=== PATIENT | male | born 1950 | race Caucasian/White ===

== ENCOUNTER → 2017-10-31 02:49 | Outpatient (CLI) | payer OTHER, SELFPAY ==
[2017-11-02 13:09] LABS: Lyme Ab w Rflx to Lyme Confirm Negative
== END ==
PROVIDERS: PCP Emergency Medicine; Visit Provider Emergency Medicine
DX: R53.83 Other fatigue (principal)
CPT/HCPCS: 36415; 86618

== ENCOUNTER 2018-01-23 13:27 | Outpatient (CLI) | payer OTHER, SELFPAY ==
--- NOTE | 2018-01-23 07:10 | DI.RAD_ITS ---
SYMPTOM/DIAGNOSIS: DYSPNEA ON EXERTION, R06.09 PA AND LATERAL CHEST: Comparison is made with 11/27/02. Heart size and pulmonary vasculature are stable and within normal limits. There are linear infiltrates seen in the right base. These may represent scarring or atelectasis. Pneumonia cannot be excluded. The left lung is clear. No effusions or pneumothoraces are identified. The lung apices appear to be hyperlucent raising the question of COPD. Degenerative changes are seen in the spine. IMPRESSION: Right basilar infiltrate which may represent atelectasis, scarring or pneumonia. COPD.
== END 2018-01-23 13:47 ==
PROVIDERS: PCP Emergency Medicine; Visit Provider Emergency Medicine
DX: R06.09 Other forms of dyspnea (principal); R91.8 Other nonspecific abnormal finding of lung field; J44.9 Chronic obstructive pulmonary disease, unspecified
CPT/HCPCS: 71046

== ENCOUNTER 2018-02-23 01:53 | Outpatient (CLI) | payer OTHER, SELFPAY ==
--- NOTE | 2018-02-23 07:31 | DI.RAD_ITS ---
SYMPTOM/DIAGNOSIS: F/U PREVIOUS COPD. CASE MANAGEMENT PATIENT PA AND LATERAL CHEST: 02/23 The heart is not enlarged. There appear to be changes of COPD. There is questionable infiltrate and/or nodular radiodensity of the right lung base, unchanged from 01/23/18. The findings were not present on previous chest film of 2002. No gross pleural effusion seen. CONCLUSION: Question of persistent right basilar density. Chest CT recommended to rule out mass.
== END 2018-02-23 02:13 ==
PROVIDERS: PCP Emergency Medicine; Visit Provider Emergency Medicine
DX: J44.9 Chronic obstructive pulmonary disease, unspecified (principal); J98.4 Other disorders of lung
CPT/HCPCS: 71046

== ENCOUNTER 2018-03-06 06:08 | Outpatient (CLI) | payer OTHER, SELFPAY ==
[2018-03-06 07:58] LABS: CREATININE 1.07 mg/dL (0.70-1.30)
== END 2018-03-06 06:28 ==
PROVIDERS: PCP Emergency Medicine; Visit Provider Emergency Medicine
DX: R93.89 Abnormal findings on diagnostic imaging of other specified body structures (principal); Z13.89 Encounter for screening for other disorder
CPT/HCPCS: 36415; 82565

== ENCOUNTER 2018-03-10 00:52 | Outpatient (CLI) | payer OTHER, SELFPAY ==
--- NOTE | 2018-03-10 15:32 | DI.CT_ITS ---
SYMPTOM/DIAGNOSIS: PERSISTENT ABNL CHEST XRAY, R93.[address]: Comparison is made with chest xray dated 02/23/18. Images were performed from the clavicles through the level of the adrenals after IV contrast. There are severe emphysematous changes, greatest in the upper lobes. There is linear scarring at the lung bases. No infiltrate, effusion or mass is seen. Mild amount of atelectasisis seen in the medial right middle lobe. No adenopathy is seen. The heart size is normal. The aorta is normal in diameter. The visualized portions of the upper abdomen are unremarkable. There are surgical clips near the GE junction. IMPRESSION: Severe emphysematous changes. There is basilar scarring and atelectasis. No suspicious abnormalities are identified.
[2018-03-10] MEDS: Omnipaque 350 MG/ML 100 ML BTL 70 ML IJ (15:34)
== END 2018-03-10 01:12 ==
PROVIDERS: PCP Emergency Medicine; Visit Provider Emergency Medicine
DX: R93.89 Abnormal findings on diagnostic imaging of other specified body structures (principal); J43.9 Emphysema, unspecified
CPT/HCPCS: 71260; J3490

== ENCOUNTER 2018-08-24 13:06 | Emergency (ER) | payer OTHER, SELFPAY ==
[2018-08-24 13:09] VITALS: BP 153/85; PULSE 88; RESP 16; TEMP 36.7; O2SAT 88
--- NOTE | 2018-08-24 13:21 | W.ED.GENAD ---
Discharge Plan Disposition Patient Disposition: HOME Condition: Fair Discharge Details Chief Complaint: RespSymp Clinical Impression: Pneumonia Primary Care Provider: David Kingston ED Provider: Jenni Malhotra Home Meds and New Rx's Prescriptions: New azithromycin 500 mg tablet See Rx Instructions .ROUTE .COMPLEX Qty: 9 RF: 0 prednisone 20 mg tablet 40 mg PO DAILY Qty: 8 RF: 0 Continued Symbicort 80-4.5 mcg/actuation HFA aerosol inhaler 2 puff IH BID Qty: 10.2 RF: 6 aspirin [Ecotrin Low Strength] 81 MG tablet,delayed release (DR/EC) 81 mg PO DAILY RF: 0 ibuprofen [Motrin IB] 200 MG tablet 400 mg PO PRN RF: 0 metoprolol succinate [Toprol XL] 25 MG tablet extended release 24 hr 25 mg PO DAILY Qty: 60 RF: 6 Discharge Instructions Instructions: Pneumonia (ED) Additional Instructions: Encourage hydration. Please take antibiotics and steroids as prescribed. Please follow-up with primary care in 1 week for reevaluation. If you develop increased shortness of breath, difficulty breathing, chest pain or other new/worsening symptoms please seek care urgently once again. Referrals: David Kingston, [Primary Care Provider] - Discharge Data Discharge Date/Time-TO BE ENTERED AT DEPARTURE: 08/24/18 14:33 Medical Decision Making Patient is a 60-year-old male presents today with chief complaint of cough and shortness of breath. He reports symptoms began 1 week ago and progressively worsened. Initially, he has been endorsing scratchy throat nasal congestion but the symptoms have resolved. His was recently diagnosed with pneumonia and he is concerned that he may contract as well. Patient has no diagnosis of COPD. Reports that he has been using his Symbicort as prescribed only minimal improvement in symptoms. He denies any fevers or chills. Denies any chest pain. No GI upset. On exam, he appears pink warm and dry. He is known to be hypoxic at 88% but this appears to be patient's baseline when review of historical data. He does not appear short of breath, breathing comfortably and speaking in complete sentences. Exam is otherwise benign. Plan to obtain chest x-ray and treat for pneumonia. X-ray was reviewed by radiologist with no acute cardiopulmonary process noted. However, given the crackles I am noting on the right lower lobe, will treat for pneumonia. Advise follow-up with primary care in 1 week. Will be treated with azithromycin and prednisone. He was given strict return precautions. Encourage hydration. All his questions and concerns were addressed and he is in agreement with this plan. HPI General Mode of arrival: ambulatory. Date/Time Provider Initiated Documentation: 08/24/18 13:07. Limitations to Documentation: no limitations. Information obtained by: patient and RN notes reviewed. History of Present Illness 68 year old M presents to the emergency department with the chief complaint of cough, described as moderate, Quality is described as aching (with cough), Patient reports no radiation. Patient started experiencing this week(s) (1) and it has been constant. No relieving factors improve symptom(s), No exacerbating factors reported . Patient notes cough and shortness of breath (chronic, associates with COPD, largely unchanged); denies chest pain, diaphoresis, fever/chills, headaches, loss of appetite, nausea/vomiting and rash. Patient did receive the following treatments prior to arrival, none Related Data Home Medications Medication Instructions Recorded Confirmed aspirin [Ecotrin Low Strength] 81 mg PO DAILY tab-cap 08/10/12 08/24/18 ibuprofen [Motrin IB] 400 mg PO PRN tab-cap 08/10/12 08/24/18 metoprolol succinate [Toprol XL] 25 mg PO DAILY #60 tab-cap 09/23/17 08/24/18 budesonide-formoterol HFA 80 2 puff IH BID #10.2 gm 01/20/18 08/24/18 mcg-4.5 mcg/actuation aerosol inhaler azithromycin See Rx Instructions .ROUTE 08/24/18 .COMPLEX #9 tab prednisone 40 mg PO DAILY #8 tab 08/24/18 Previous Rx's Medication Instructions Recorded metoprolol succinate [Toprol XL] 25 mg PO DAILY #60 tab-cap 09/23/17 budesonide-formoterol HFA 80 2 puff IH BID #10.2 gm 01/20/18 mcg-4.5 mcg/actuation aerosol inhaler azithromycin See Rx Instructions .ROUTE 08/24/18 .COMPLEX #9 tab prednisone 40 mg PO DAILY #8 tab 08/24/18 Allergies Allergy/AdvReac Type Severity Reaction Status Date / Time Penicillins Allergy Unknown Verified 08/24/18 13:13 General Stated Complaint: RespSymp HE: 3 Review of Systems Constitutional Reports as per HPI and Denies headache(s) Eyes Reports as per HPI, Denies eye discharge and Denies irritation ENT Reports as per HPI and Denies headache(s) Cardiovascular Reports as per HPI, Denies chest pain and Denies dyspnea Respiratory Reports as per HPI and Denies dyspnea Gastrointestinal Reports as per HPI, Denies abdominal pain, Denies change in bowel habits, Denies nausea and Denies vomiting Integumentary/Breasts Reports as per HPI and Denies rash Neurologic Reports as per HPI and Denies headache(s) [facility] Surgical History Colonoscopy - MAC (~2006) Extraction of cataract Elida Fundoplication (~1997) Rotator Cuff Repair (~07/2010) abdominal wall hernia repair Family History Mother Heart disease COPD (chronic obstructive pulmonary disease) Father Diabetes Personal history of malignant neoplasm Sister Diabetes Heart disease Brother Diabetes Heart disease Grandfather Heart disease Grandfather No problems noted. Grandmother No problems noted. Grandmother No problems noted. Sister Heart disease Hyperlipidemia Brother No problems noted. Son Essential hypertension Son No problems noted. Daughter Neoplasm Social History Smoking/Tobacco Use Status: Former Tobacco Use Alcohol Intake: current Alcohol Intake frequency: a few times a month Drug use: Never Substance use type: does not use Do you feel safe at home: Yes Do you feel safe in your relationship?: Yes Exam Const General: cooperative, healthy appearing, comfortable, no acute distress, well developed and well groomed Nutritional Appearance: average body habitus and well nourished Orientation: alert and awake [facility] Head: normal to inspection, normocephalic and atraumatic Ears: hearing grossly normal bilaterally, external ears normal and TM's normal bilaterally General nose exam: external nose normal and nares normal Face and sinus: normal facial exam, sinuses nontender and face symmetric Mouth: oral mucosae normal, lip normal, tongue normal, oropharynx normal and moist mucous membranes Teeth and gingiva: dentition normal Throat: posterior oropharynx normal, tonsils normal and uvula midline Eyes General: appearance normal, both eyes and all related structures Neck Neck: normal visual inspection, full ROM, no lymphadenopathy and no meningeal signs Resp Effort & Inspection: normal respiratory effort, able to speak in complete sentences and no respiratory distress Auscultation: crackles on the left in the lower lung cade, no rales, no rhonchi and no wheezes Cardio Rate: regular rate Rhythm: regular rhythm Heart Sounds: S1 normal and S2 normal Skin General skin exam: no rashes or lesions noted Neuro General: alert and awake Cognition: normal cognition Speech: speech normal Gait: normal gait Psych Appearance: grossly normal and well kempt Mental Status: mental status grossly normal Speech and Movement: speech and movement normal Course Vital Signs Temperature 36.7 C 08/24/18 13:09 Pulse 88 08/24/18 13:09 Respiratory Rate 16 08/24/18 13:09 Blood Pressure 153/85 H 08/24/18 13:09 Pulse Oximetry 88 L 08/24/18 13:09 Temperature 36.7 C 08/24/18 13:09 Temperature Source Temporal Artery Scan 08/24/18 13:09 Pulse 88 08/24/18 13:09 Respiratory Rate 16 08/24/18 13:09 Respiratory Effort Non-Labored 08/24/18 13:14 Respiratory Depth Normal 08/24/18 13:14 Blood Pressure 153/85 H 08/24/18 13:09 Blood Pressure Position Sitting 08/24/18 13:09 Pulse Oximetry 88 L 08/24/18 13:09 Oxygen Delivery Method Room Air 08/24/18 13:09 Oxygen Flow Rate 0 08/24/18 13:09 Pain Level 1 08/24/18 13:09
--- NOTE | 2018-08-24 13:31 | DI.RAD_ITS ---
SYMPTOMS/DIAGNOSIS: LEFT LOWER LOBE CRACKLES, ? PNEUMONIA PA AND LATERAL CHEST: There is evidence of COPD. No localized infiltrate is seen. There is no pleural effusion. The cardiovascular structures are intact. SUMMARY: COPD. No evidence of acute cardiopulmonary disease.
--- NOTE | 2018-08-24 13:36 | ED.GENADUL_ITS ---
Discharge Plan Disposition Patient Disposition: HOME Condition: Fair Discharge Details Chief Complaint: RespSymp Clinical Impression: Pneumonia Primary Care Provider: David Kingston ED Provider: Jenni Malhotra Home Meds and New Rx's Prescriptions: New azithromycin 500 mg tablet See Rx Instructions .ROUTE .COMPLEX Qty: 9 RF: 0 prednisone 20 mg tablet 40 mg PO DAILY Qty: 8 RF: 0 Continued Symbicort 80-4.5 mcg/actuation HFA aerosol inhaler 2 puff IH BID Qty: 10.2 RF: 6 aspirin [Ecotrin Low Strength] 81 MG tablet,delayed release (DR/EC) 81 mg PO DAILY RF: 0 ibuprofen [Motrin IB] 200 MG tablet 400 mg PO PRN RF: 0 metoprolol succinate [Toprol XL] 25 MG tablet extended release 24 hr 25 mg PO DAILY Qty: 60 RF: 6 Discharge Instructions Instructions: Pneumonia (ED) Additional Instructions: Encourage hydration. Please take antibiotics and steroids as prescribed. Please follow-up with primary care in 1 week for reevaluation. If you develop increased shortness of breath, difficulty breathing, chest pain or other new/worsening symptoms please seek care urgently once again. Referrals: David Kingston, [Primary Care Provider] - Discharge Data Discharge Date/Time-TO BE ENTERED AT DEPARTURE: 08/24/18 14:33 Medical Decision Making Patient is a 60-year-old male presents today with chief complaint of cough and shortness of breath. He reports symptoms began 1 week ago and progressively worsened. Initially, he has been endorsing scratchy throat nasal congestion but the symptoms have resolved. His was recently diagnosed with pneumonia and he is concerned that he may contract as well. Patient has no diagnosis of COPD. Reports that he has been using his Symbicort as prescribed only minimal improvement in symptoms. He denies any fevers or chills. Denies any chest pain. No GI upset. On exam, he appears pink warm and dry. He is known to be hypoxic at 88% but this appears to be patient's baseline when review of historical data. He does not appear short of breath, breathing comfortably and speaking in complete sentences. Exam is otherwise benign. Plan to obtain chest x-ray and treat for pneumonia. X-ray was reviewed by radiologist with no acute cardiopulmonary process noted. However, given the crackles I am noting on the right lower lobe, will treat for pneumonia. Advise follow-up with primary care in 1 week. Will be treated with azithromycin and prednisone. He was given strict return precautions. Encourage hydration. All his questions and concerns were addressed and he is in agreement with this plan. HPI General Mode of arrival: ambulatory . Date/Time Provider Initiated Documentation: 08/24/18 13:07 . Limitations to Documentation: no limitations . Information obtained by: patient and RN notes reviewed . History of Present Illness 68 year old M presents to the emergency department with the chief comp laint of cough, described as moderate, Quality is described as aching (with cough), Patient reports no radiation. Patient started experiencing this week(s) (1) and it has been constant. No relieving factors improve symptom(s), No exacerbating factors reported . Patient notes cough and shortness of breath (chronic, associates with COPD, largely unchanged); denies chest pain, diaphoresis, fever/chills, headaches, loss of appetite, nausea/vomiting and rash. Patient did receive the following treatments prior to arrival, none Related Data Home Medications Medication Instructions Recorded Confirmed aspirin [Ecotrin Low Strength] 81 mg PO DAILY tab-cap 08/10/12 08/24/18 ibuprofen [Motrin IB] 400 mg PO PRN tab-cap 08/10/12 08/24/18 metoprolol succinate [Toprol XL] 25 mg PO DAILY #60 tab-cap 09/23/17 08/24/18 budesonide-formoterol HFA 80 2 puff IH BID #10.2 gm 01/20/18 08/24/18 mcg-4.5 mcg/actuation aerosol inhaler azithromycin See Rx Instructions .ROUTE 08/24/18 .COMPLEX #9 tab prednisone 40 mg PO DAILY #8 tab 08/24/18 Previous Rx's Medication Instructions Recorded metoprolol succinate [Toprol XL] 25 mg PO DAILY #60 tab-cap 09/23/17 budesonide-formoterol HFA 80 2 puff IH BID #10.2 gm 01/20/18 mcg-4.5 mcg/actuation aerosol inhaler azithromycin See Rx Instructions .ROUTE 08/24/18 .COMPLEX #9 tab prednisone 40 mg PO DAILY #8 tab 08/24/18 Allergies Allergy/AdvReac Type Severity Reaction Status Date / Time Penicillins Allergy Unknown Verified 08/24/18 13:13 General Stated Complaint: RespSymp HE: 3 Review of Systems Constitutional Reports as per HPI and Denies headache(s) Eyes Reports as per HPI, Denies eye discharge and Denies irritation ENT Reports as per HPI and Denies headache(s) Cardiovascular Reports as per HPI, Denies chest pain and Denies dyspnea Respiratory Reports as per HPI and Denies dyspnea Gastrointestinal Reports as per HPI, Denies abdominal pain, Denies change in bowel habits, Denies nausea and Denies vomiting Integumentary/Breasts Reports as per HPI and Denies rash Neurologic Reports as per HPI and Denies headache(s) [facility] Surgical History Colonoscopy - MAC (~2006) Extraction of cataract Elida Fundoplication (~1997) Rotator Cuff Repair (~07/2010) abdominal wall hernia repair Family History Mother Heart disease COPD (chronic obstructive pulmonary disease) Father Diabetes Personal history of malignant neoplasm Sister Diabetes Heart disease Brother Diabetes Heart disease Grandfather Heart disease Grandfather No problems noted. Grandmother No problems noted. Grandmother No problems noted. Sister Heart disease Hyperlipidemia Brother No problems noted. Son Essential hypertension Son No problems noted. Daughter Neoplasm Social History Smoking/Tobacco Use Status: Former Tobacco Use Alcohol Intake: current Alcohol Intake frequency: a few times a month Drug use: Never Substance use type: does not use Do you feel safe at home: Yes Do you feel safe in your relationship?: Yes Exam Const General: cooperative, healthy appearing, comfortable, no acute distress, well developed and well groomed Nutritional Appearance: average body habitus and well nourished Orientation: alert and awake [facility] Head: normal to inspection, normocephalic and atraumatic Ears: hearing grossly normal bilaterally, external ears normal and TM's normal bilaterally General nose exam: external nose normal and nares normal Face and sinus: normal facial exam, sinuses nontender and face symmetric Mouth: oral mucosae normal, lip normal, tongue normal, oropharynx normal and moist mucous membranes Teeth and gingiva: dentition normal Throat: posterior oropharynx normal, tonsils normal and uvula midline Eyes General: appearance normal, both eyes and all related structures Neck Neck: normal visual inspection, full ROM, no lymphadenopathy and no meningeal signs Resp Effort & Inspection: normal respiratory effort, able to speak in complete sentences and no respiratory distress Auscultation: crackles on the left in the lower lung cade, no rales, no rhonchi and no wheezes Cardio Rate: regular rate Rhythm: regular rhythm Heart Sounds: S1 normal and S2 normal Skin General skin exam: no rashes or lesions noted Neuro General: alert and awake Cognition: normal cognition Speech: speech normal Gait: normal gait Psych Appearance: grossly normal and well kempt Mental Status: mental status grossly normal Speech and Movement: speech and movement normal Course Vital Signs Temperature 36.7 C 08/24/18 13:09 Pulse 88 08/24/18 13:09 Respiratory Rate 16 08/24/18 13:09 Blood Pressure 153/85 H 08/24/18 13:09 Pulse Oximetry 88 L 08/24/18 13:09 Temperature 36.7 C 08/24/18 13:09 Temperature Source Temporal Artery Scan 08/24/18 13:09 Pulse 88 08/24/18 13:09 Respiratory Rate 16 08/24/18 13:09 Respiratory Effort Non-Labored 08/24/18 13:14 Respiratory Depth Normal 08/24/18 13:14 Blood Pressure 153/85 H 08/24/18 13:09 Blood Pressure Position Sitting 08/24/18 13:09 Pulse Oximetry 88 L 08/24/18 13:09 Oxygen Delivery Method Room Air 08/24/18 13:09 Oxygen Flow Rate 0 08/24/18 13:09 Pain Level 1 08/24/18 13:09
== END 2018-08-24 14:33 | disposition home or self-care (01) ==
PROVIDERS: Emergency Provider Physician Assistant; PCP Emergency Medicine
DX: J18.9 Pneumonia, unspecified organism (principal)
CPT/HCPCS: 99283; 71046

== ENCOUNTER 2018-11-12 09:54 | Emergency (ER) | payer OTHER, SELFPAY ==
[2018-11-12 09:59] VITALS: BP 180/91; PULSE 75; RESP 14; TEMP 36.9; O2SAT 91
--- NOTE | 2018-11-12 10:21 | ED.GENADUL_ITS ---
Discharge Plan Disposition Patient Disposition: HOME Condition: Stable Discharge Details Chief Complaint: Nk/Back Pain Clinical Impression: Sciatica, Back pain, Leg pain Primary Care Provider: David Kingston ED Provider: Corin Beverly Home Meds and New Rx's Prescriptions: New prednisone 20 mg tablet See Rx Instructions .ROUTE .COMPLEX Qty: 12 RF: 0 methocarbamol [Robaxin-750] 750 mg tablet 750 mg PO QID PRN (Reason: muscle spasm) Qty: 14 RF: 0 Continued Symbicort 80-4.5 mcg/actuation HFA aerosol inhaler 2 puff IH BID Qty: 10.2 RF: 6 aspirin [Ecotrin Low Strength] 81 MG tablet,delayed release (DR/EC) 81 mg PO DAILY RF: 0 ibuprofen [Motrin IB] 200 MG tablet 400 mg PO PRN RF: 0 metoprolol succinate [Toprol XL] 25 MG tablet extended release 24 hr 25 mg PO DAILY Qty: 60 RF: 6 Discharge Instructions Instructions: Sciatica (ED), Back Pain (ED) Additional Instructions: Alternate Tylenol and Motrin as needed and directed for pain. Take the steroids until finished. Take the muscle relaxer as needed and directed. Alternate ice and heat to the affected area several times daily for 20 minutes at a time. Call your primary care doctor tomorrow morning to schedule a follow-up appointment for reevaluation. Return immediately to the emergency department if you develop any worsening or new concerning symptoms. Stand Alone Forms: Work Release Discharge Data Discharge Date/Time-TO BE ENTERED AT DEPARTURE: 11/12/18 11:44 Discharge Physician: Corin Beverly Medical Decision Making 68-year-old male with history of COPD, BPH who presents with right lower back pain with radiation to buttock and right leg for the past few days. Denies any cauda equina symptoms, fever, abdominal pain, urinary symptoms or known injury. He has tenderness palpation of his right lateral lumbar region, right buttock. No focal deficits. Neurovascularly intact. Presentation appears likely consistent with sciatica. Patient was given a dose of Toradol IM and Valium p.o. here and admitted some improvement. I do not see any indication for imaging at this time and the patient is agreeable. He was sent home with a prescription for Robaxin and steroids. He was advised that his symptoms may take several days to resolve and to incorporate Motrin, Tylenol, ice and heat. He was advised to follow-up with his primary care doctor for reevaluation and for referral for physical therapy or imaging if his symptoms do not improve or worsen. He is advised to return here with any concerns. Medical Records Medical records reviewed: Yes I reviewed the patient's medical records. HPI General Mode of arrival: ambulatory . Date/Time Provider Initiated Documentation: 11/12/18 10:08 . Limitations to Documentation: no limitations . Information obtained by: patient . HPI Narrative: Patient is a 68-year-old male who presents the ED with complaint of bilateral lower back pain for the past 5 days now with radiation to his right leg for the past 2 days. He denies any known injury or trauma. He denies fever, nausea, vomiting, chest pain, shortness of breath, abdominal pain, leg weakness, numbness, saddle anesthesia, bowel or bladder incontinence. He denies any relief with Motrin. Related Data Home Medications Medication Instructions Recorded Confirmed aspirin [Ecotrin Low Strength] 81 mg PO DAILY tab-cap 08/10/12 11/12/18 ibuprofen [Motrin IB] 400 mg PO PRN tab-cap 08/10/12 11/12/18 metoprolol succinate [Toprol XL] 25 mg PO DAILY #60 tab-cap 09/23/17 11/12/18 budesonide-formoterol HFA 80 2 puff IH BID #10.2 gm 01/20/18 11/12/18 mcg-4.5 mcg/actuation aerosol inhaler methocarbamol [Robaxin-750] 750 mg PO QID PRN #14 tab 11/12/18 prednisone See Rx Instructions .ROUTE 11/12/18 .COMPLEX #12 tab Previous Rx's Medication Instructions Recorded metoprolol succinate [Toprol XL] 25 mg PO DAILY #60 tab-cap 09/23/17 budesonide-formoterol HFA 80 2 puff IH BID #10.2 gm 01/20/18 mcg-4.5 mcg/actuation aerosol inhaler methocarbamol [Robaxin-750] 750 mg PO QID PRN #14 tab 11/12/18 prednisone See Rx Instructions .ROUTE 11/12/18 .COMPLEX #12 tab Allergies Allergy/AdvReac Type Severity Reaction Status Date / Time Penicillins Allergy Unknown Verified 08/18/19 10:10 General Stated Complaint: Nk/Back Pain HE: 4 Review of Systems Review of Systems All systems reviewed & are unremarkable except as noted in HPI and below Constitutional Reports as per HPI, Denies chills and Denies fever(s) Eyes Denies blurry vision ENT Denies dizziness, Denies sore throat and Denies throat swelling Cardiovascular Denies chest pain and Denies dyspnea Respiratory Denies cough and Denies dyspnea Gastrointestinal Denies abdominal pain, Denies diarrhea and Denies vomiting Genitourinary Denies hematuria and Denies dysuria Musculoskeletal Reports back pain, Denies numbness and Reports other (Leg pain) Integumentary/Breasts Denies lesions and Denies rash Neurologic Denies dizziness, Denies focal weakness and Denies numbness Allergic/Immunologic Denies throat swelling [facility] Medical History Jensen's esophagus (Inactive) BPH without urinary obstruction (Inactive) COPD (chronic obstructive pulmonary disease) case management patient (Inactive) Surgical History abdominal wall hernia repair Colonoscopy - MAC (~2006) Extraction of cataract Elida Fundoplication (~1997) Rotator Cuff Repair (~07/2010) Family History Mother Heart disease COPD (chronic obstructive pulmonary disease) Father Diabetes Personal history of malignant neoplasm Sister Diabetes Heart disease Brother Diabetes Heart disease Grandfather Heart disease Grandfather No problems noted. Grandmother No problems noted. Grandmother No problems noted. Sister Heart disease Hyperlipidemia Brother No problems noted. Son Essential hypertension Son No problems noted. Daughter Neoplasm Social History Smoking/Tobacco Use Status: Former Tobacco Use Alcohol Intake: current Alcohol Intake frequency: a few times a month Drug use: Never Substance use type: does not use Do you feel safe at home: Yes Do you feel safe in your relationship?: Yes Exam Const General: cooperative, healthy appearing and no acute distress HENMT Head: normal to inspection Face and sinus: normal facial exam Eyes General: appearance normal, both eyes and all related structures Pupils: PERRL EOM: EOM intact bilaterally Neck Neck: normal visual inspection and No submandibular swelling Lymphatic: no lymphadenopathy noted Chest Chest: normal inspection of the chest and no tenderness Resp Effort & Inspection: normal respiratory effort and able to speak in complete sentences Auscultation: clear to auscultation bilaterally Cardio Rate: regular rate Rhythm: regular rhythm GI Inspection: normal to inspection Palpation: soft, not firm, not rigid and nontender Auscultation: normal bowel sounds Back/Spine/Pelvis Thoracic/Lumbar Spine: thoracic and lumbar spine normal to inspection, straight leg raise negative bilaterally, paraspinal tenderness (Right lateral lumbar) and thoraco-lumbar spasm Pelvis: no pain with anterior-posterior compression and buttock tenderness on the right Skin General skin exam: no rashes or lesions noted Neuro General: alert, awake and oriented x3 Cognition: normal cognition Speech: speech normal Motor: muscle tone normal throughout and strength 5/5 throughout Sensory Exam: no sensory deficits noted DTR's: Rt Patellar: 2+, Lt Patellar: 2+, Rt Ankle: 2+ and Lt Ankle: 2+ Plantar Reflexes: Equivocal: bilateral (Negative Babinski bilaterally) Extrem General: normal to inspection, full ROM, normal capillary refill, no calf tenderness bilaterally and no edema Other: Bilateral DP/PT pulses intact. Psych Appearance: grossly normal Mental Status: mental status grossly normal Speech and Movement: speech and movement normal Affect: normal affect Course Vital Signs Temperature 98.4 F 11/12/18 09:59 Pulse 75 11/12/18 09:59 Respiratory Rate 14 11/12/18 09:59 Blood Pressure 180/91 H 11/12/18 09:59 Pulse Oximetry 91 L 11/12/18 09:59 Temperature 98.4 F 11/12/18 09:59 Temperature Source Temporal Artery Scan 11/12/18 09:59 Pulse 75 11/12/18 09:59 Respiratory Rate 14 11/12/18 09:59 Respiratory Effort Non-Labored 11/12/18 10:05 Blood Pressure 180/91 H 11/12/18 09:59 Blood Pressure Position Sitting 11/12/18 09:59 Pulse Oximetry 91 L 11/12/18 09:59 Oxygen Delivery Method Room Air 11/12/18 09:59 Oxygen Flow Rate 0 11/12/18 09:59 Pain Level 6 11/12/18 09:59
[2018-11-12] MEDS: Ketorolac 60 MG/2 ML VIAL IM (10:46)
[2018-11-12] MEDS: diazePAM 5 MG TAB PO (10:47)
== END 2018-11-12 11:44 | disposition home or self-care (01) ==
PROVIDERS: Emergency Provider Physician Assistant; PCP Emergency Medicine
DX: M54.41 Lumbago with sciatica, right side (principal); J44.9 Chronic obstructive pulmonary disease, unspecified; Z87.891 Personal history of nicotine dependence
CPT/HCPCS: 96372; 99284; J1885

== ENCOUNTER 2019-03-29 18:43 | Inpatient (IN) | payer OTHER, SELFPAY ==
[2019-03-29] VITALS (25 sets, daily range): BP systolic 116–190; BP diastolic 55–84; PULSE 77–113; RESP 18–27; TEMP 37.5–37.6; O2SAT 79–95
--- NOTE | 2019-03-29 19:01 | ED.GENADUL_ITS ---
Discharge Plan Disposition Patient Disposition: [facility] INPATIENT Condition: Poor Discharge Details Chief Complaint: Chest Pain Clinical Impression: Bilateral pulmonary embolism, COPD (chronic obstructive pulmonary disease) Primary Care Provider: David Kingston ED Provider: Turner Chester Home Meds and New Rx's Prescriptions: No Action aspirin [Ecotrin Low Strength] 81 MG tablet,delayed release (DR/EC) 81 mg PO DAILY RF: 0 ibuprofen [Motrin IB] 200 MG tablet 400 mg PO PRN RF: 0 Symbicort 80-4.5 mcg/actuation HFA aerosol inhaler 2 puff IH BID Qty: 10.2 RF: 6 metoprolol succinate [Toprol XL] 25 mg tablet extended release 24 hr 25 mg PO DAILY Qty: 60 RF: 6 Medical Decision Making <Bernard Sommer MD - Last Filed: 03/29/19 19:54> 68-year-old male, history of long-time cigarette use, quit in the . [place] to me has had intermittent episodes of chest discomfort for weeks to months. Presents today after developing right-sided pleuritic chest discomfort and mild shortness of breath early in the morning that persisted throughout the day. He arrives to the ED with a room air oxygenation of 79%. He is afebrile but mildly tachycardic and hypertensive. On exam his right base is diminished to auscultation. Differential diagnosis includes chest mass, pulmonary embolism, pneumonia. Patient referred for ABG, EKG, laboratory testing, screening chest x-ray. The patient's ABG reveals a pH 7.4, PO2 58, PCO2 43. CBC with white count 11, hematocrit 52, platelets 219. D-dimer elevated at 1651, chemistries pending. Patient's chest x-ray shows right base abnormality, formal report pending. Given his presentation, hypoxia, elevated d-dimer I have ordered a CT scan of the chest. As it is change of shift, patient be signed out to Dr. Chester pending remainder of his diagnostics and diagnostic imaging. ECG Data Attestation: I personally reviewed and interpreted this ECG (s) as follows: Interpretation: Sinus tachycardia, rate of 111, the QRS is narrow, nonspecific ST segment flattening in leads III and aVF. No acute ST segment changes appreciated. <Turner Chester MD - Last Filed: 03/29/19 22:23> Patient signed out to me pending results of CT scan and laboratory studies. Patient had presented with pleuritic right-sided chest pain and hypoxemia. Currently has normal heart rate and blood pressure. We did need to turn his nasal cannula up to 6 L to keep him at 90%. He is more comfortable after receiving pain medication. Patient's ABG done on 4 L nasal cannula shows significant hypoxia with a PO2 of 58 and an O2 saturation of 89%. His d-dimer is positive. CBC, chemistries, coags, LFTs are fine. CTA of the chest shows bilateral pulmonary emboli with segmental and subsegmental clot on the right and subsegmental clots on the left. Per radiology, who I did speak with, there is not a significant clot burden and there is no CT evidence of significant right heart strain. Likely that the patient's underlying COPD is contributing a fair amount to his hypoxia. Patient and family made aware of diagnosis. Patient discussed with hospitalist, Dr. Lewis. Will start heparin per PE protocol and admit to telemetry for further monitoring and management. Lab Data Lab results reviewed: Yes I reviewed the patient's lab results. HPI <Bernard Sommer MD - Last Filed: 03/29/19 19:54> General Mode of arrival: ambulatory . Date/Time Provider Initiated Documentation: 03/29/19 18:43 . Limitations to Documentation: no limitations . Information obtained by: patient and family . History of Present Illness 68 year old M presents to the emergency department with the chief complaint of Right-sided chest pain, pleuritic, Quality is described as dull, and is localized to the chest and right. Patient started experiencing this hour(s) and it has been constant. Rest improves symptom(s), Other factors that worsen symptoms (Worse with deep breath) . Patient notes chest pain and other (Denies recent fever, cough. No lower extremity pain or swelling. No prolonged travel.). Patient did receive the following treatments prior to arrival, none Related Data Home Medications Medication Instructions Recorded Confirmed aspirin [Ecotrin Low Strength] 81 mg PO DAILY tab-cap 08/10/12 03/29/19 ibuprofen [Motrin IB] 400 mg PO PRN tab-cap 08/10/12 03/29/19 budesonide-formoterol HFA 80 2 puff IH BID #10.2 gm 11/21/18 03/29/19 mcg-4.5 mcg/actuation aerosol inhaler metoprolol succinate 25 mg 25 mg PO DAILY #60 tab-cap 11/21/18 03/29/19 tablet,extended release 24 hr Previous Rx's Medication Instructions Recorded budesonide-formoterol HFA 80 2 puff IH BID #10.2 gm 11/21/18 mcg-4.5 mcg/actuation aerosol inhaler metoprolol succinate 25 mg 25 mg PO DAILY #60 tab-cap 11/21/18 tablet,extended release 24 hr Allergies Allergy/AdvReac Type Severity Reaction Status Date / Time Penicillins Allergy Unknown Verified 03/29/19 18:52 General Stated Complaint: Chest Pain HE: 2 Review of Systems <Bernard Sommer MD - Last Filed: 03/29/19 19:54> Narrative: Denies night sweats, no change to weight. See HPI. 8 systems reviewed and otherwise negative. PFSH <Bernard Sommer MD - Last Filed: 03/29/19 19:54> Medical History Jensen's esophagus (Inactive) BPH without urinary obstruction (Inactive) COPD (chronic obstructive pulmonary disease) case management patient (Inactive) Surgical History abdominal wall hernia repair 03/2004 Colonoscopy - MAC (~2006) 2007 10/2010 Extraction of cataract Elida Fundoplication (~1997) Rotator Cuff Repair (~07/2010) right Social History Smoking/Tobacco Use Status: Former Tobacco Use Quit Date: 03/31/96 Alcohol Intake: current Alcohol Intake frequency: a few times a month Drug use: Never Substance use type: does not use Do you feel safe at home: Yes Do you feel safe in your relationship?: Yes Exam <Bernard Sommer MD - Last Filed: 03/29/19 19:54> Narrative Exam Narrative: GEN: awake, alert, oriented 3. Pleasant, well groomed, interactive. HEAD: Normocephalic, atraumatic ENT: Mucous membranes moist, oropharynx unremarkable, External ear exam unremarkable EYES: PERRL, EOMI NECK: Full ROM, no AMEE, no menigismus CHEST/RESP: Nontender, diminished right base, otherwise clear to auscultation bilaterally CARDIOVASCULAR: Regular and tachycardic, no murmur, rub zoey. 2+ Rad pulse bilateral ABDOMEN: Soft, nontender, no mass. +Bowel sounds EXT: Full ROM, no edema, no rash Neuro: Grossly normal neurologic exam, conversant, interactive. Psych: Speech fluent, thoughts congruent, affect normal Course <Bernard Sommer MD - Last Filed: 03/29/19 19:54> Vital Signs Vital signs: Vital Signs Temperature 37.6 C H 03/29/19 18:47 Pulse 113 H 03/29/19 18:47 Respiratory Rate 21 03/29/19 18:47 Blood Pressure 190/82 H 03/29/19 18:47 Pulse Oximetry 79 L 03/29/19 18:47 Temperature 37.6 C H 03/29/19 18:47 Temperature Source Temporal Artery Scan 03/29/19 18:47 Pulse 113 H 03/29/19 18:47 Respiratory Rate 21 03/29/19 18:47 Respiratory Effort 03/29/19 18:51 Blood Pressure 190/82 H 03/29/19 18:47 Pulse Oximetry 79 L 03/29/19 18:47 Oxygen Delivery Method Nasal Cannula 03/29/19 18:50 Oxygen Flow Rate 2 03/29/19 18:50 Pain Level 8 03/29/19 18:47 Sign Out <Bernard Sommer MD - Last Filed: 03/29/19 19:54> Sign Out Data: Sign Out Comment: followup CT, labs Last updated by Bernard Sommer MD at 03/29/19 20:01
[2019-03-29] MEDS: Ondansetron 4 MG/2 ML VIAL IVP (19:18)
[2019-03-29] MEDS: Normal Saline Flush 10 ML SYR IVP (19:18)
[2019-03-29 19:23] LABS: Abs Immature Grans 0.05 k/cumm (0.0-0.09); Absolute Basophil Count 0.02 k/cumm (0.0-0.2); Absolute Lymphocyte Count 1.35 k/cumm (1.2-3.4); Absolute Monocyte Count 1.31 k/cumm (0.11-0.7); Absolute Neutrophil Count 8.78 k/cumm (1.2-6.7); Basophils % 0.2; Eosinophils % 0.9; HCT 52.8 % (40.0-50.0); HGB 17.5 g/dL (13.5-17.5); Immature Grans % 0.4 %; Lymphocytes % 11.6; Mean Corp. HGB Concentration 33.1 g/dL (32.0-36.0); Mean Corpuscular Hemoglobin 30.7 pg (27.0-33.0); Mean Corpuscular Volume 92.6 fL (80-95); Monocytes % 11.3; Neutrophils % 75.6; Platelet Count 219 x1000/uL (130-400); RBC Distribution Width 14.6 % (11.8-14.1); White Blood Cell Count 11.62 k/cumm (4.4-10.8)
[2019-03-29 19:29] LABS: INR 1.1 (0.9-1.1); PTT Activated 26.4 sec (21.0-31.4); Prothrombin Time 10.6 sec (9.3-11.0)
[2019-03-29 19:33] LABS: BE 2.5 mmol/L (-3-3); HCO3 27 mmol/L (22-28); pCO2 43 mmHg (34-47); pH 7.41 (7.35-7.45); pO2 58 mmHg (83-108); sO2 89 % (94-98); tCO2 23 mmol/L (22-29)
[2019-03-29 19:46] LABS: ALT 28 U/L (16-63); AST 21 U/L (15-37); Albumin 3.4 g/dL (3.4-5.0); Alkaline Phosphatase 74 U/L (46-116); Anion Gap 6.9 mmol/L (3-11); BUN 22 mg/dL (7-18); Bilirubin, Total 0.6 mg/dL (0.2-1.0); CO2 29.1 mmol/L (21.0-32.0); CREATININE 1.07 mg/dL (0.70-1.30); Calcium 8.7 mg/dL (8.5-10.1); Chloride 104 mmol/L (98-107); Glucose 167 mg/dL (74-106); Magnesium 1.9 mg/dL (1.8-2.4); NT-proBNP 506 pg/mL (<300); Potassium 4.2 mmol/L (3.5-5.1); Sodium 140 mmol/L (136-145); Total Protein 7.6 g/dL (6.4-8.2)
--- NOTE | 2019-03-29 19:48 | DI.RAD_ITS ---
EXAM: XR CHEST 2V PA LATERAL CLINICAL HISTORY: R chest pain TECHNIQUE: COMPARISON: XR CHEST 2V PA LATERAL from 08/24/2018 FINDINGS: The heart is not enlarged. There are areas of bibasilar atelectasis and small right pleural effusion as noted on CT. Severe emphysematous changes noted. Please see accompanying CT report. CT angiography showed multiple bilateral lower lobe pulmonary emb anahi. IMPRESSION:
[2019-03-29 19:51] LABS: D-Dimer 1651 ng/mlFEU (<500)
[2019-03-29] MEDS: MORPHine 10 MG/ML VIAL (20:00)
[2019-03-29 20:01] LABS: Troponin I < 0.05 ng/Ml (<0.06)
--- NOTE | 2019-03-29 20:02 | DI.VRAD_ITS ---
PROCEDURE INFORMATION: Exam: XR Chest, 2 Views Exam date and time: 03/29/2019 7:02 PM Age: 68 years old Clinical indication: Right-sided chest pain TECHNIQUE: Imaging protocol: XR of the chest Views: 2 views. COMPARISON: CR XR CHEST 2V PA LATERAL 08/24/2018 1:40 PM FINDINGS: Lungs: Right lower lobe subsegmental atelectasis and/or evolving infiltrate. No dense consolidation. Pleural space: Unremarkable. No pleural effusion. No pneumothorax. Heart/Mediastinum: Unremarkable. No cardiomegaly. Diaphragm: Eventrations of hemidiaphragms. Bones/joints: Degenerative changes. IMPRESSION: Right lower lobe subsegmental atelectasis and/or evolving infiltrate. Dictated and Authenticated by: David Renae MD. Ordering:DEQUAN Wagner MD
[2019-03-29] MEDS: Omnipaque 350 MG/ML 100 ML BTL IJ (20:18)
--- NOTE | 2019-03-29 20:18 | DI.CT_ITS ---
EXAM: CT CHEST PE ABD PELVIS W CLINICAL HISTORY: Hypoxia, right base diminished. TECHNIQUE: CT angiography of the chest, abdomen and pelvis was performed with a bolus infusion of 10 0 cc of Omnipaque 350. Axial CT angiography was performed with multi-slice acquisition and multi-planar and/or 3D reconstruc tions. COMPARISON: No exams were available for comparison FINDINGS: Thoracic aorta unremarkable in appearance with minimal wall calcifications. There are pulmonary emb anahi visible in segmental and subsegmental pulmonary arteries in right and left lower lobe vessels. N o central pulmonary embolus identified. There is a trace right pleural effusion. Cardiac size withi n normal limits and no evidence of right ventricular strain. There are severe pulmonary bullous emphysematous changes. There are presumed areas of bibasilar atel ectasis. No focal consolidation. Scanning of the abdomen and pelvis shows unremarkable appearance the liver, spleen, and pancreas. Ga llbladder and bile ducts are CT normal. Adrenals and kidneys unremarkable in appearance. No signifi cant abdominal wall hernia seen. No abdominal or pelvic adenopathy. Appendix is normal. No evidenc e of diverticulitis or bowel obstruction. Abdominal aorta is of normal diameter. Mural thrombus identified in the distal aorta and proximal le ft common iliac artery, less than 50 percent luminal diameter stenosis. Celiac trunk, superior mesen teric artery, renal arteries, and inferior mesenteric artery are unremarkable in appearance. IMPRESSION: Multiple segmental and subsegmental pulmonary emboli identified in lower lobe pulmonary arterial vasc ulature bilaterally. No evidence of right heart strain. Severe bullous emphysema noted.
--- NOTE | 2019-03-29 21:24 | DI.VRAD_ITS ---
Addendum created by David Renae DO on 03/29/2019 9:29:23 PM EST THIS REPORT CONTAINS FINDINGS THAT MAY BE CRITICAL TO PATIENT CARE. The findings were verbally communicated via telephone conference with Dr. Chester, 03/29/2019 9:28 PM EST. The findings were acknowledged and understood. Initial report created on 03/29/2019 9:24:18 PM EST PROCEDURE INFORMATION: Exam: CT Angiography Chest With Contrast Exam date and time: 03/29/2019 8:20 PM Age: 68 years old Clinical indication: Other: Hypoxia, RT based deminished TECHNIQUE: Imaging protocol: Computed tomographic angiography of the chest with intravenous contrast. 3D rendering: MIP and/or 3D reconstructed images were created by the technologist. COMPARISON: CT chest w 03/10/2018 3:11 PM FINDINGS: Pulmonary arteries: Right lower lobe segmental and subsegmental pulmonary artery filling defects. Subsegmental left lower lobe pulmonary artery filling defects. Aorta: No aortic aneurysm or dissection. Atherosclerosis. Lungs: Advanced emphysema. Insert atelectasis. Central airways patent. Pleural space: Unremarkable. No pneumothorax. No pleural effusion. Heart: There are coronary artery calcifications. Lymph nodes: Unremarkable. No enlarged lymph nodes. Bones/joints: Unremarkable. No acute fracture. Soft tissues: Unremarkable. IMPRESSION: 1. Bilateral pulmonary artery filling defects. 2. Coronary artery disease. 3. Advanced emphysema. PROCEDURE INFORMATION: Exam: CT Angiography Abdomen With Contrast Exam date and time: 03/29/2019 8:20 PM Age: 68 years old Clinical indication: Other: Hypoxia, RT based deminished TECHNIQUE: Imaging protocol: Computed tomographic angiography images of the abdomen with intravenous contrast material. 3D rendering: MIP and/or 3D reconstructed images were created by the technologist. COMPARISON: CT chest w 03/10/2018 3:11 PM FINDINGS: Aorta: Noncalcified plaque lesion results less than 50% stenosis in distal aorta and approximately 50% stenosis in minimally dilated left common iliac artery. Celiac trunk and mesenteric arteries: No occlusion or significant stenosis. Renal arteries: No occlusion or significant stenosis. Liver: There is diffuse decrease in hepatic parenchymal density, consistent with mild fatty infiltration.No mass. Gallbladder and bile ducts: Gallstones suspected. No biliary ductal dilatation. Pancreas: Normal. No ductal dilation. Spleen: Normal. No splenomegaly. Adrenals: Normal. No mass. Kidneys and ureters: Normal. No hydronephrosis. Stomach and bowel: Colonic diverticula. No dilated loops of small bowel or colonic dilatation. Appendix: Normal appendix. Lymph nodes: Unremarkable. No enlarged lymph nodes. Intraperitoneal space: Surgical clips, upper abdomen. Bladder: Multiple small diverticula. Reproductive: Prostatic calcifications Bones/joints: The spine demonstrates mild degenerative changes at multiple levels. No acute fracture. No dislocation. Soft tissues: Small, fat containing ventral hernia. IMPRESSION: 1. Less than 50% stenosis in distal aorta. 2. 50% stenosis in minimally dilated left common iliac artery. 3. Gallstones suspected. 4. Colonic diverticula. 5. Bladder diverticula. Dictated and Authenticated by: David Renae MD. Ordering:DEQUAN Wagner MD
[2019-03-29 22:24] LABS: Troponin I < 0.05 ng/Ml (<0.06)
[2019-03-29] MEDS: Ibuprofen 200 MG TAB 600 MG PO (23:30)
[2019-03-30] VITALS (14 sets, daily range): BP systolic 101–144; BP diastolic 64–90; PULSE 62–90; RESP 16–22; TEMP 36.1–38; O2SAT 91–95
--- NOTE | 2019-03-30 00:09 | W.PM.HP.N ---
Date of service: 03/30/19 Time of Service: 00:09 Assessment and Plan Assessment and plan (1) Pulmonary embolism: Status: Chronic Assessment and plan: At this point these appear to be unprovoked pulmonary emboli. Will check a duplex of the lower extremities. Also check echocardiogram. Started on a heparin infusion with plans to transition to an oral medical regimen. We will see how he does overnight with this. His right sided chest pain is probably an area of pulmonary infarct though it is not showing up on imaging as yet. Trial of ibuprofen and will have morphine available intravenous if needed for pain control. (2) Emphysema of lung: Status: Acute Assessment and plan: Advanced emphysema on his CT scan. We will continue his usual updrafts and inhalers. (3) Hypoxia: Status: Acute Assessment and plan: Fairly pronounced hypoxemia. He has a large O2 requirement. He will be here a few days trying to regain mobility and reduce his O2 requirement. He may end up needing high flow oxygen or even noninvasive therapies. I do not think he will require mechanical ventilation. History of Present Illness History of Present Illness Chief Complaint: Pulmonary embolism/right lower chest pain Narrative: 68-year-old male who woke up during the night on the day of admission with sudden onset of right lower chest pain. It hurts for him to take a big breath. He had no prodrome of cough or fever. He has not noticed any swelling in his legs or evidence of any blood clots. He has a remote history of smoking and has emphysema. On presentation to the emergency room he had a room air oxygen saturation of 79%. He was mildly tachycardic and hypertensive. His chest x-ray showed right lower lobe atelectasis. His d-dimer was elevated at 1651. A CT angiogram shows right lower lobe segmental and subsegmental pulmonary emboli, left subsegmental pulmonary emboli, advanced emphysema. An abdominal CT scan was generally negative. He was started on a heparin infusion and [facility] floor on telemetry. Review of Systems Narrative: As per HPI the main issue is this right sided chest pain. Is very uncomfortable for him to take a big breath and it sensitive to palpation. He has not coughed up any blood. No cardiac symptoms. No GI or symptoms. [facility] Medical History Jensen's esophagus (Inactive) BPH without urinary obstruction (Inactive) COPD (chronic obstructive pulmonary disease) case management patient (Inactive) Surgical History abdominal wall hernia repair 03/2004 Colonoscopy - MAC (~2006) 10/2010 Extraction of cataract Elida Fundoplication (~1997) Rotator Cuff Repair (~07/2010) right Family History Mother Heart disease COPD (chronic obstructive pulmonary disease) Father Diabetes Personal history of malignant neoplasm LUNG/BRAIN Sister Diabetes Heart disease Brother Diabetes Heart disease Grandfather Heart disease Grandfather No problems noted. Grandmother No problems noted. Grandmother No problems noted. Sister Heart disease Hyperlipidemia Brother No problems noted. Son Essential hypertension Son No problems noted. Daughter Neoplasm UTERINE Social History Smoking/Tobacco Use Status: Former Tobacco Use Quit Date: 03/31/96 Alcohol Intake: current Alcohol Intake frequency: a few times a month Drug use: Never Substance use type: does not use Do you feel safe at home: Yes Do you feel safe in your relationship?: Yes Meds Home Medications and Allergies Home Medications Medication Instructions Recorded Confirmed Type aspirin [Ecotrin Low Strength] 81 mg PO DAILY tab-cap 08/10/12 03/29/19 History ibuprofen [Motrin IB] 400 mg PO PRN tab-cap 08/10/12 03/29/19 History budesonide-formoterol HFA 80 2 puff IH BID #10.2 gm 11/21/18 03/29/19 Rx mcg-4.5 mcg/actuation aerosol inhaler metoprolol succinate 25 mg 25 mg PO DAILY #60 tab-cap 11/21/18 03/29/19 Rx tablet,extended release 24 hr Allergies Allergy/AdvReac Type Severity Reaction Status Date / Time Penicillins Allergy Unknown Verified 03/29/19 18:52 Exam Narrative Exam Narrative: On exam he is lying nearly flat in bed. He is smiling and does not appear in any distress unless you try to palpate the right side of his chest and he winces in retraction pain. His lungs otherwise sound clear to auscultation other than some diminished breath sounds in that right lower lobe region. His heart sounds are notable for occasional skipped beats. No significant murmur. Abdomen is otherwise nontender to palpation and soft. Lower extremities the DP and PT pulses are difficult to palpate but were easily found using Doppler. His feet are warm and otherwise appear well perfused. There is no significant edema. He had no calf swelling or tenderness. Neurologically there are no focal deficits. Results Labs Result diagrams: 03/29/19 19:00 03/29/19 19:00 Labs: Laboratory Results - last 24 hr 03/29/19 03/29/19 03/29/19 19:00 19:00 19:00 WBC 11.62 H RBC 5.70 Hgb 17.5 Hct 52.8 H MCV 92.6 MCH 30.7 MCHC 33.1 RDW 14.6 H Plt Count 219 MPV 10.0 Immature Gran % 0.4 Neutrophils % 75.6 Lymphocytes % 11.6 Monocytes % 11.3 Eosinophils % 0.9 Basophils % 0.2 Absolute Neutrophils 8.78 H Absolute Lymphocytes 1.35 Absolute Monocytes 1.31 H Absolute Eosinophils 0.10 Absolute Basophils 0.02 PT 10.6 INR 1.1 APTT 26.4 D-Dimer 1651 H Sample Site pCO2 pO2 O2 Saturation ABG pH ABG HCO3 ABG Total CO2 ABG Base Excess Sodium 140 Potassium 4.2 Chloride 104 Carbon Dioxide 29.1 Anion Gap 6.9 BUN 22 H Creatinine 1.07 Estimated GFR/1.73 m2 >= 60.00 Glucose 167 H Calcium 8.7 Magnesium 1.9 Total Bilirubin 0.6 AST 21 ALT 28 Alkaline Phosphatase 74 Troponin I < 0.05 NT-Pro-B Natriuret Pep 506 H Total Protein 7.6 Albumin 3.4 03/29/19 03/29/19 19:30 22:00 WBC RBC Hgb Hct MCV MCH MCHC RDW Plt Count MPV Immature Gran % Neutrophils % Lymphocytes % Monocytes % Eosinophils % Basophils % Absolute Neutrophils Absolute Lymphocytes Absolute Monocytes Absolute Eosinophils Absolute Basophils PT INR APTT D-Dimer Sample Site Unknown pCO2 43 pO2 58 L O2 Saturation 89 L ABG pH 7.41 ABG HCO3 27 ABG Total CO2 23 ABG Base Excess 2.5 Sodium Potassium Chloride Carbon Dioxide Anion Gap BUN Creatinine Estimated GFR/1.73 m2 Glucose Calcium Magnesium Total Bilirubin AST ALT Alkaline Phosphatase Troponin I < 0.05 NT-Pro-B Natriuret Pep Total Protein Albumin Last Vital Signs Temp 37.5 C 03/29/19 22:40 Pulse 94 H 03/29/19 23:08 Resp 20 03/29/19 22:40 BP 144/78 H 03/29/19 22:40 Pulse Ox 95 03/29/19 22:40
[2019-03-30 04:30] LABS: Abs Immature Grans 0.02 k/cumm (0.0-0.09); Absolute Basophil Count 0.02 k/cumm (0.0-0.2); Absolute Eosinophil Count 0.12 k/cumm (0.0-0.7); Absolute Lymphocyte Count 1.34 k/cumm (1.2-3.4); Absolute Monocyte Count 1.33 k/cumm (0.11-0.7); Absolute Neutrophil Count 6.53 k/cumm (1.2-6.7); Basophils % 0.2; Eosinophils % 1.3; HGB 16.1 g/dL (13.5-17.5); Immature Grans % 0.2 %; Lymphocytes % 14.3; Mean Corp. HGB Concentration 33.5 g/dL (32.0-36.0); Mean Corpuscular Hemoglobin 31.3 pg (27.0-33.0); Mean Corpuscular Volume 93.2 fL (80-95); Monocytes % 14.2; Neutrophils % 69.8; Platelet Count 184 x1000/uL (130-400); RBC 5.15 m/cumm (4.50-6.00); RBC Distribution Width 14.7 % (11.8-14.1); White Blood Cell Count 9.36 k/cumm (4.4-10.8)
[2019-03-30 04:41] LABS: ALT 17 U/L (16-63); AST 16 U/L (15-37); Albumin 2.7 g/dL (3.4-5.0); Alkaline Phosphatase 57 U/L (46-116); Anion Gap 6.9 mmol/L (3-11); BUN 19 mg/dL (7-18); CO2 28.1 mmol/L (21.0-32.0); CREATININE 0.98 mg/dL (0.70-1.30); Calcium 8.1 mg/dL (8.5-10.1); Chloride 105 mmol/L (98-107); Glucose 115 mg/dL (74-106); Sodium 140 mmol/L (136-145); Total Protein 6.2 g/dL (6.4-8.2)
[2019-03-30 05:14] LABS: PTT Activated 110.9 sec (21.0-31.4)
[2019-03-30] MEDS: Normal Saline Flush 10 ML SYR IVP (08:27)
[2019-03-30] MEDS: Metoprolol CR 25 MG TABCR PO (08:27)
[2019-03-30] MEDS: Budesonide/Formoterol 80/4.5 6.9 GM 60 PUFF INH IH ×2 (09:35→19:35)
--- NOTE | 2019-03-30 10:53 | DI.US_ITS ---
APPROVED REPORT EXAM: Comprehensive 2D, Doppler, and color-flow Echocardiogram Patient Location: In-Patient Beveler: Narcisa Luna RDCS (AE) Rhythm: NSR Indications: B/L PE Conclusion Left Ventricle : The left ventricle is normal size. Left ventricular systolic function is normal. Jose Guadalupe rderline left ventricular hypertrophy. There is normal LV segmental wall motion. There is grade 1 di astolic dysfunction. LVEF is estimated to be 65-70%. Right Ventricle : The right ventricle appears normal size. Right ventricle is mildly hypokinetic. Atria : The left atrium size is normal. The right atrium size is normal. Aortic Valve : Aortic valve is trileaflet. No significant aortic regurgitation is present. There is n o aortic valvular stenosis. Mitral Valve : The mitral valve is normal in structure. Trace mitral regurgitation. No evidence of mi tral valve stenosis. Tricuspid Valve : The tricuspid valve is normal in structure. Trivial tricuspid regurgitation. Great Vessels : The aortic root size is dilated (3.85cm). The ascending aorta size is normal. IVC is normal in size and collapses >50% with inspiration. Estimated RVSP is 44-47 mmHg. There is no clear evidence of RV strain on echocardiogram. There is no prior echocardiogram available for comparison. Wall motion Left Ventricle The left ventricle is normal size. Left ventricular systolic function is normal. Borderline left vent ricular hypertrophy. There is normal LV segmental wall motion. There is grade 1 diastolic dysfunction . LVEF is estimated to be 65-70%. Right Ventricle The right ventricle appears normal size. Right ventricle is mildly hypokinetic. Atria The left atrium size is normal. The right atrium size is normal. Aortic Valve Aortic valve is trileaflet. There is no aortic valvular stenosis. No significant aortic regurgitation is present. Mitral Valve The mitral valve is normal in structure. No evidence of mitral valve stenosis. Trace mitral regurgita tion. Tricuspid Valve The tricuspid valve is normal in structure. Trivial tricuspid regurgitation. Pulmonic Valve Pulmonic valve is not well visualized. Great Vessels The aortic root size is dilated (3.85cm). The ascending aorta size is normal. IVC is normal in size a nd collapses >50% with inspiration. Estimated RVSP is 44-47 mmHg. Pericardium There is no pericardial effusion. 2D Dimensions IVSd 1.20 cm M: 0.6-1.2 LV EDV A2C 76.40 mL PWd 1.00 cm M: 0.6 - 1.2 LV EDV A4C 59.60 mL LVDd 4.40 cm M: 4.2 - 5.8 LA Volume Index A2C 26.27 mL/m2 LVDs 2.70 cm M: 2.5 - 4.0 LA Volume Index A4C 28.25 mL/m2 Aortic Root 3.85 cm M: 3.1 - 3.7 LA Volume Index Biplane 28.13 mL/m2 RVID Base (AP4) 3.48 cm (M/F) 2.5-4.1 LA Area A4C 19.13 cm2 RA Area A4C 13.87 cm2 LA Area A2C 17.86 cm2 LVOT 2.10 cm (M/F) 1.5-2.5 EF AP4 71.64 % Ascending Aorta 3.38 cm M: 2.6 - 3.4 EF AP2 64.27 % LVEF (Teich) 69.85 % EF BP 69.99 % LVEF (Hernandez's) 69.99 % M: 52 - 72 LV Volume 54.26 mL M: 62 - 150 LV Volume Index 27.26 mL/m2 M: 34 - 74 FS 39.15 % LV Diastology E/A Ratio 1.0 MED E' 0.05 (>0.07 m/s) LV E/e MED 14.30 (<14) LAT E' 0.08 (>0.1 m/s) LV E/e LAT 7.90 (<14) Aortic Valve LVOT Area 3.59 cm2 LVOT Vmax 1.24 m/s LVOT Mean Herb. 0.81 m/s LVOT Peak Gr. 6.1 mmHg LVOT Mean Gr. 3.1 mmHg AoV Area/ BSA (Vmax) 1.83 cm2/m2 LVOT VTI 0.267 m AoV Vmax 1.22 (0.5-1.3 m/s) DUGLAS Mean Herb. Index 1.62 cm2/m2 AoV Mean Herb. 0.90 m/s AoV Peak Grad 5.9 mmHg AoV Mean Grad 3.5 (<5 mmHg) AoV VTI 0.278 (0.18-0.25 m) AoV Area VTI 3.63 (2.5-4.5 cm2) AoV Area/ BSA (VTI) 1.82 cm/m2 Mitral Valve MV E Max Herb. 0.67 (0.4-1.3 m/s) MV A Velocity 0.70 (0.4-1.3 m/s) E/A Ratio 0.94 MV Decel. Time 232.75 (160-240 msec) MV PHT 67.51 msec MVA PHT 3.25 cm2 Pulmonary Valve PV Peak Velocity 0.69 (0.5-1.5 m/s) Tricuspid Valve TR P. Velocity 3.34 m/s TV Regurg Vmax 3.34 m/s RAP Estimate 3.00 mmHg RVSP 47.64 mmHg TR P. Gradient 44.60 mmHg
--- NOTE | 2019-03-30 11:15 | PHARADMIT ---
Addendum entered by Pepito Ritter III 03/31/19 11:15: Pharmacy Note Subjective Patient has improved but still requires Oxygen. Objective VS-OK Labs- WNL, Assessment Ibuprofen dc'd, Heparin drip converts to Eliquis tonight Plan Once safely on oral meds will be discharged home. Original Note: Admission Pharmacy Clinical Review bilateral PE Code Status Full Code Current Weight 84.7 kg Renally Cleared and Narrow Therapeutic Index Meds Crcl ~69 mL/min current meds okay QTc Value / Action Taken QTc 459 BP Control, Fever BP 101/64 Tmax 37.6 yesterday Electrolytes reviewed within normal limits DVT Prophylaxis heparin drip for bilat PE Opiate Usage / Scheduled Bowel Regimen Ordered prn/prn Plt/SCr for Heparin / Enoxaparin plt 184 SCr 0.98 INR for Warfarin n/a H/H stable, WBC/Bands h/h 16.1/48.0 WBC 9.36 Antibiotic appropriateness none Cultures and Sensitivities none Surgical ABX d/c within 24 hr n/a DM control / Insulin Dosing BG 115 none Heart Failure (Check EF%) (DIANE's, B-Block, Diuretics) metoprolol IV to PO Switch n/a Home Meds Reviewed ibuprofen may enhance the bleed risk and diminish the cardioprotective effect of aspirin, aspirin may decrease the serum concentration of ibuprofen Home Meds Not Ordered aspirin, Comments ECHO today US of lower extremities
--- NOTE | 2019-03-30 11:46 | W.NUTCONSULT ---
Date of service: 03/30/19 Time of Service: 11:46 Nutritional Consult ASSESSMENT: 68 year old male admitted with hypoxia, emphysema of lung, pulmonary embolism. Following regular meal plan with adequate intake, tolerating texture despite poor dentition. BMI wnl for age. Not considered at nutritional risk at this time. MONITORING AND EVALUATION: weight and po intake trends Time Spent in Nutritional Counseling and Treatment: 0 time spent face to face
[2019-03-30 12:50] LABS: PTT Activated 62.2 sec (21.0-31.4)
--- NOTE | 2019-03-30 13:03 | DI.US_ITS ---
EXAM: US EXTREMITY VENOUS BI CLINICAL HISTORY: b/l PE TECHNIQUE: Ultrasound performed using standard protocol. COMPARISON: US ECHOCARDIOGRAM from 03/30/2019 FINDINGS: Duplex evaluation of the deep venous system of both lower extremities was performed according to the usual protocol. There is no evidence of deep venous thrombosis in the right lower extremity. On the left there is no evidence of DVT in the popliteal vein or proximally. However there is calf v ein nonocclusive thrombus in posterior tibial veins and peroneal veins. No superficial thrombus identified in either lower extremity. IMPRESSION: Negative DVT ultrasound right lower extremity. DVT ultrasound of left lower extremity positive for deep calf vein thrombus, posterior tibial and per boggs veins.
--- NOTE | 2019-03-30 13:27 | PGE_ITS ---
Date of Service Date of service: 03/30/19 Time of Service: 09:00 Assessment and Plan Assessment and plan (1) Pulmonary embolism: Status: Chronic Assessment and plan: Duplex scan shows left calf superficial and deep vein thromboses. This seems to be unprovoked. No periods of prolonged immobilization or recent surgery. Colonoscopy in 2010 unremarkable. PSA done within the past 2 years in the lower end of the population norm. CBC and CMP without any concerning findings. He does have a skin lesion on his back for which I have requested surgical consultation for consideration of excisional biopsy but I think it is unlikely this represents melanoma. Symptomatically, his pleuritic chest pain is improving. Oxygen requirement decreasing. Likely transition to apixaban tomorrow and discontinue IV heparin provided he remains hemodynamically stable. (2) Hypoxia: Status: Acute Assessment and plan: Pulmonary embolism on a background of COPD/emphysema likely causing his hypoxemia. Try weaning oxygen. He may need to go home with oxygen temporarily. (3) Emphysema of lung: Status: Acute Assessment and plan: Continue current inhaler and oxygen as above. (4) Hypertension: Status: Chronic Assessment and plan: Blood pressures initially high, better now, continue outpatient beta-nathanael dose. (5) Skin lesion of back: Status: Acute Assessment and plan: Differential seborrheic keratosis versus melanoma. Surgical referral for consideration of excisional biopsy. Subjective Subjective Interval history since last seen: Admitted last evening with bilateral pulmonary edema and right pleuritic chest pain, significant hypoxemia on room air. Received ibuprofen overnight and his pleuritic right chest pain has improved although it is not gone. No prior history of DVT or pulmonary embolism. No recent surgery or immobility. No recent illnesses. Denies productive cough. No fever or chills. No unintentional weight loss. No hemoptysis. Thus far has had no bleeding problems with heparin. Stable CMP and CBC with a slight d ecrease in hemoglobin and hematocrit compared to admission, probably due to re- equilibration with IV hydration. Exam Narrative Exam Narrative: Comfortable seated, can take a slow deep breath without developing pleuritic pain. Temperature 37.2 blood pressure 121/72 SaO2 on 3 L 93%. Sclera clear. No JVD. Lungs with diminished breath sounds at the right base, bronchial breath sounds with some dullness to percussion. Overall distant breath sounds but no wheezing. Regular heart rhythm no murmur S3 or S4. No abdominal tenderness. No calf tenderness, no ankle swelling. 1+ pulses in the feet which are warm. Symmetric and spontaneous movement of all extremities. He sits up unassisted. Objective Objective Clinical Data: Abnormal lab results 03/29/19 03/29/19 03/29/19 Range/Units 19:00 19:00 19:00 WBC 11.62 H (4.4-10.8) k/cumm Hct 52.8 H (40.0-50.0) % RDW 14.6 H (11.8-14.1) % Absolute Neutrophils 8.78 H (1.2-6.7) k/cumm Absolute Monocytes 1.31 H (0.11-0.7) k/cumm APTT (21.0-31.4) sec D-Dimer 1651 H (<500) ng/mlFEU pO2 (83-108) mmHg O2 Saturation (94-98) % BUN 22 H (7-18) mg/dL Glucose 167 H (74-106) mg/dL Calcium (8.5-10.1) mg/dL NT-Pro-B Natriuret Pep 506 H (<300) pg/mL Total Protein (6.4-8.2) g/dL Albumin (3.4-5.0) g/dL 03/29/19 03/30/19 03/30/19 Range/Units 19:30 04:20 04:20 WBC (4.4-10.8) k/cumm Hct (40.0-50.0) % RDW (11.8-14.1) % Absolute Neutrophils (1.2-6.7) k/cumm Absolute Monocytes (0.11-0.7) k/cumm APTT 110.9 H* D (21.0-31.4) sec D-Dimer (<500) ng/mlFEU pO2 58 L (83-108) mmHg O2 Saturation 89 L (94-98) % BUN 19 H (7-18) mg/dL Glucose 115 H (74-106) mg/dL Calcium 8.1 L (8.5-10.1) mg/dL NT-Pro-B Natriuret Pep (<300) pg/mL Total Protein 6.2 L (6.4-8.2) g/dL Albumin 2.7 L (3.4-5.0) g/dL 03/30/19 03/30/19 Range/Units 04:20 12:30 WBC (4.4-10.8) k/cumm Hct (40.0-50.0) % RDW 14.7 H (11.8-14.1) % Absolute Neutrophils (1.2-6.7) k/cumm Absolute Monocytes 1.33 H (0.11-0.7) k/cumm APTT 62.2 H D (21.0-31.4) sec D-Dimer (<500) ng/mlFEU pO2 (83-108) mmHg O2 Saturation (94-98) % BUN (7-18) mg/dL Glucose (74-106) mg/dL Calcium (8.5-10.1) mg/dL NT-Pro-B Natriuret Pep (<300) pg/mL Total Protein (6.4-8.2) g/dL Albumin (3.4-5.0) g/dL Vital Signs Temperature 36.1 C L 03/30/19 07:23 Temperature Source Tympanic 03/30/19 07:23 Pulse 62 03/30/19 07:23 Pulse Rhythm Irregular 03/30/19 08:30 Pulse 91 H 03/29/19 21:16 Respiratory Rate 19 03/30/19 07:23 Respiratory Effort 03/30/19 08:30 Respiratory Depth Normal 03/30/19 08:30 Respiratory Pattern Normal 03/30/19 08:30 Blood Pressure 101/64 03/30/19 07:23 Blood Pressure Mean 84 03/29/19 21:16 Pulse Oximetry 92 L 03/30/19 08:16 Oxygen Delivery Method Nasal Cannula 03/30/19 08:16 Oxygen Flow Rate 3 03/30/19 08:16 Pain Level 4 03/30/19 07:23 Comment 03/29/19 23:24 Intake & Output 03/29/19 03/30/19 03/30/19 23:59 11:59 23:59 Intake Total 15.242 / 15.242 511.592 / 751.592 240 / 751.592 Output Total 125 / 125 Balance 15.242 / 15.242 386.592 / 626.592 240 / 626.592 Weight 85.3 kg 84.7 kg Intake: IV 15.242 / 15.242 151.592 / 151.592 Oral 360 / 600 240 / 600 Output: Urine 125 / 125 Other: Urine Color Yellow Urine Appearance Clear Urine Odor Normal Voiding Methods Urinal Laboratory Results WBC 9.36 k/cumm (4.4-10.8) 03/30/19 04:20 RBC 5.15 m/cumm (4.50-6.00) 03/30/19 04:20 Hgb 16.1 g/dL (13.5-17.5) 03/30/19 04:20 Hct 48.0 % (40.0-50.0) 03/30/19 04:20 MCV 93.2 fL (80-95) 03/30/19 04:20 MCH 31.3 pg (27.0-33.0) 03/30/19 04:20 MCHC 33.5 g/dL (32.0-36.0) 03/30/19 04:20 RDW 14.7 % (11.8-14.1) H 03/30/19 04:20 Plt Count 184 x1000/uL (130-400) 03/30/19 04:20 MPV 10.0 fL (8.0-11.0) 03/30/19 04:20 Immature Gran % 0.2 % 03/30/19 04:20 Neutrophils % 69.8 03/30/19 04:20 Lymphocytes % 14.3 03/30/19 04:20 Monocytes % 14.2 03/30/19 04:20 Eosinophils % 1.3 03/30/19 04:20 Basophils % 0.2 03/30/19 04:20 Absolute Neutrophils 6.53 k/cumm (1.2-6.7) 03/30/19 04:20 Absolute Lymphocytes 1.34 k/cumm (1.2-3.4) 03/30/19 04:20 Absolute Monocytes 1.33 k/cumm (0.11-0.7) H 03/30/19 04:20 Absolute Eosinophils 0.12 k/cumm (0.0-0.7) 03/30/19 04:20 Absolute Basophils 0.02 k/cumm (0.0-0.2) 03/30/19 04:20 PT 10.6 sec (9.3-11.0) 03/29/19 19:00 INR 1.1 (0.9-1.1) 03/29/19 19:00 APTT 62.2 sec (21.0-31.4) H D 03/30/19 12:30 D-Dimer 1651 ng/mlFEU (<500) H 03/29/19 19:00 Sample Site Unknown 03/29/19 19:30 pCO2 43 mmHg (34-47) 03/29/19 19:30 pO2 58 mmHg (83-108) L 03/29/19 19:30 O2 Saturation 89 % (94-98) L 03/29/19 19:30 ABG pH 7.41 (7.35-7.45) 03/29/19 19:30 ABG HCO3 27 mmol/L (22-28) 03/29/19 19:30 ABG Total CO2 23 mmol/L (22-29) 03/29/19 19:30 ABG Base Excess 2.5 mmol/L (-3-3) 03/29/19 19:30 Sodium 140 mmol/L (136-145) 03/30/19 04:20 Potassium 4.0 mmol/L (3.5-5.1) 03/30/19 04:20 Chloride 105 mmol/L (98-107) 03/30/19 04:20 Carbon Dioxide 28.1 mmol/L (21.0-32.0) 03/30/19 04:20 Anion Gap 6.9 mmol/L (3-11) 03/30/19 04:20 BUN 19 mg/dL (7-18) H 03/30/19 04:20 Creatinine 0.98 mg/dL (0.70-1.30) 03/30/19 04:20 Estimated GFR/1.73 m2 >= 60.00 (mL/min/1.73m2) 03/30/19 04:20 Glucose 115 mg/dL (74-106) H 03/30/19 04:20 Calcium 8.1 mg/dL (8.5-10.1) L 03/30/19 04:20 Magnesium 1.9 mg/dL (1.8-2.4) 03/29/19 19:00 Total Bilirubin 1.0 mg/dL (0.2-1.0) 03/30/19 04:20 AST 16 U/L (15-37) 03/30/19 04:20 ALT 17 U/L (16-63) 03/30/19 04:20 Alkaline Phosphatase 57 U/L (46-116) 03/30/19 04:20 Troponin I < 0.05 ng/Ml (<0.06) 03/29/19 22:00 NT-Pro-B Natriuret Pep 506 pg/mL (<300) H 03/29/19 19:00 Total Protein 6.2 g/dL (6.4-8.2) L 03/30/19 04:20 Albumin 2.7 g/dL (3.4-5.0) L 03/30/19 04:20 Echocardiogram normal, no evidence of RV strain. Duplex scan with left calf superficial and deep vein thrombosis.
--- NOTE | 2019-03-30 15:15 | SKI_PTH ---
PATIENT: Darrell Rawls LOC: U#:[id number] AGE/SX: 69/M ROOM: 206 RE03/29/[address]: Crista Pendleton : 1950 BED: A DIS: 04/03/2019 SPEC #: [id number] RECD: 03/30/19 17:31 STATUS: TYSON REMoe #: [id number] MIRTHA: 03/30/19 15:[address]: Marilin Last DEPT: Surgical Specimen RECD BY: Dione Lobato ENTERED: 03/30/19 17:32 SP TYPE: LEONCIO JOSEPH DR: DO Debbie Huang Michael R Tissues: 1 - SKIN BIOPSY(SHAVE/PUNCH) Procedures: SKIN LEVEL 4 Comments: [id number]
--- NOTE | 2019-03-30 15:59 | W.SURGCON ---
Date of service: 03/30/19 Time of Service: 15:59 Assessment and Plan Assessment and plan (1) Skin lesion of back: Status: Acute Assessment and plan: procedure note dictated ice and tylenol for pain f/u in 10 days for suture removal and results tolertated well and n bleeding (2) Pulmonary embolism: Status: Chronic History of Present Illness Narrative: pt admitted w/ SOB and found to have a PE. He does have a long commute for work. He has an atypical mole on his back the hosp would like bx. informed consent to the explaining risks and benefits of procedure including but not limited to: Bleeding, infection, complications from the local anesthetic, and need for removal of more tissue. Patient understands she is at a slightly higher risk for complications because he is on the heparin. Consults Consult date: 03/30/19 Requesting physician: Buck Gomes Review of Systems All systems reviewed & are unremarkable except as noted in HPI and below PFSH Medical History Jensen's esophagus (Inactive) BPH without urinary obstruction (Inactive) COPD (chronic obstructive pulmonary disease) case management patient (Inactive) Hypertension (Chronic) Surgical History abdominal wall hernia repair 03/2004 Colonoscopy - MAC (~2006) 2007 10/2010 Extraction of cataract Elida Fundoplication (~1997) Rotator Cuff Repair (~07/2010) right Family History Mother Heart disease COPD (chronic obstructive pulmonary disease) Father Diabetes Personal history of malignant neoplasm LUNG/BRAIN Sister Diabetes Heart disease Brother Diabetes Heart disease Grandfather Heart disease Grandfather No problems noted. Grandmother No problems noted. Grandmother No problems noted. Sister Heart disease Hyperlipidemia Brother No problems noted. Son Essential hypertension Son No problems noted. Daughter Neoplasm UTERINE Social History Smoking/Tobacco Use Status: Former Tobacco Use Quit Date: 03/31/96 Alcohol Intake: current Alcohol Intake frequency: a few times a month Drug use: Never Substance use type: does not use Do you feel safe at home: Yes Do you feel safe in your relationship?: Yes Exam Chest Chest: normal inspection of the chest Resp Effort & Inspection: normal respiratory effort and able to speak in complete sentences Auscultation: clear to auscultation bilaterally and wheezes GI Inspection: normal to inspection and non-distended Palpation: soft, hepatosplenomegaly present, nontender and No ascites Auscultation: normal bowel sounds Skin Lesions: lesion noted (back 5mm irreg mole in size/pigment. It is on his back some patient is uns) papule upper truncal borders irregular, color black (irreg pigment ) and other (Patient does not know how long it is been there. He does not know if it is growing or changing. He does not know if it is bleeding.) Rashes: no rashes Nails: transverse white lines Neuro General: alert, awake and oriented x3 Extrem General: full ROM and no clubbing, cyanosis or edema Results Last Vital Signs Temp 38 C H 03/30/19 15:27 Pulse 85 03/30/19 15:27 Resp 16 03/30/19 15:27 BP 137/90 03/30/19 15:27 Pulse Ox 91 L 03/30/19 15:49 Labs Result diagrams: 03/30/19 04:20 03/30/19 04:20 Labs: Laboratory Results - last 24 hr 03/29/19 03/29/19 03/29/19 19:00 19:00 19:00 WBC 11.62 H RBC 5.70 Hgb 17.5 Hct 52.8 H MCV 92.6 MCH 30.7 MCHC 33.1 RDW 14.6 H Plt Count 219 MPV 10.0 Immature Gran % 0.4 Neutrophils % 75.6 Lymphocytes % 11.6 Monocytes % 11.3 Eosinophils % 0.9 Basophils % 0.2 Absolute Neutrophils 8.78 H Absolute Lymphocytes 1.35 Absolute Monocytes 1.31 H Absolute Eosinophils 0.10 Absolute Basophils 0.02 PT 10.6 INR 1.1 APTT 26.4 D-Dimer 1651 H Sample Site pCO2 pO2 O2 Saturation ABG pH ABG HCO3 ABG Total CO2 ABG Base Excess Sodium 140 Potassium 4.2 Chloride 104 Carbon Dioxide 29.1 Anion Gap 6.9 BUN 22 H Creatinine 1.07 Estimated GFR/1.73 m2 >= 60.00 Glucose 167 H Calcium 8.7 Magnesium 1.9 Total Bilirubin 0.6 AST 21 ALT 28 Alkaline Phosphatase 74 Troponin I < 0.05 NT-Pro-B Natriuret Pep 506 H Total Protein 7.6 Albumin 3.4 03/29/19 03/29/19 03/30/19 19:30 22:00 04:20 WBC RBC Hgb Hct MCV MCH MCHC RDW Plt Count MPV Immature Gran % Neutrophils % Lymphocytes % Monocytes % Eosinophils % Basophils % Absolute Neutrophils Absolute Lymphocytes Absolute Monocytes Absolute Eosinophils Absolute Basophils PT INR APTT 110.9 H* D D-Dimer Sample Site Unknown pCO2 43 pO2 58 L O2 Saturation 89 L ABG pH 7.41 ABG HCO3 27 ABG Total CO2 23 ABG Base Excess 2.5 Sodium Potassium Chloride Carbon Dioxide Anion Gap BUN Creatinine Estimated GFR/1.73 m2 Glucose Calcium Magnesium Total Bilirubin AST ALT Alkaline Phosphatase Troponin I < 0.05 NT-Pro-B Natriuret Pep Total Protein Albumin 03/30/19 03/30/19 03/30/19 04:20 04:20 12:30 WBC 9.36 RBC 5.15 Hgb 16.1 Hct 48.0 MCV 93.2 MCH 31.3 MCHC 33.5 RDW 14.7 H Plt Count 184 MPV 10.0 Immature Gran % 0.2 Neutrophils % 69.8 Lymphocytes % 14.3 Monocytes % 14.2 Eosinophils % 1.3 Basophils % 0.2 Absolute Neutrophils 6.53 Absolute Lymphocytes 1.34 Absolute Monocytes 1.33 H Absolute Eosinophils 0.12 Absolute Basophils 0.02 PT INR APTT 62.2 H D D-Dimer Sample Site pCO2 pO2 O2 Saturation ABG pH ABG HCO3 ABG Total CO2 ABG Base Excess Sodium 140 Potassium 4.0 Chloride 105 Carbon Dioxide 28.1 Anion Gap 6.9 BUN 19 H Creatinine 0.98 Estimated GFR/1.73 m2 >= 60.00 Glucose 115 H Calcium 8.1 L Magnesium Total Bilirubin 1.0 AST 16 ALT 17 Alkaline Phosphatase 57 Troponin I NT-Pro-B Natriuret Pep Total Protein 6.2 L Albumin 2.7 L
--- NOTE | 2019-03-30 16:13 | ROE_ITS ---
DATE OF PROCEDURE: March 30, 2019 PREOPERATIVE DIAGNOSIS: Atypical mole, possible melanoma/new onset of PE. POSTOPERATIVE DIAGNOSIS: Same. PROCEDURE: Skin lesion biopsy. SURGEON: Marilin Last D.O. ANESTHESIA: Local. ESTIMATED BLOOD LOSS: < 1 cc CONDITION: The patient tolerated the procedure well without complication. HISTORY: Mr. Rawls is a 58-year-old male who presented to the hospital with shortness of breath a nd was found to have a PE with no etiology. He was found to have an atypical mole, irregularly pigme nted and irregularly shaped. He does have a history of sun exposure and the hospitalist would like i t biopsied for melanoma. Informed consent was obtained explaining risks and benefits of the procedur e, including but not limited to, bleeding, infection, scarring and need for removal of more tissue an d reaction to anesthesia. Patient agrees. PROCEDURE: The area is prepped and draped in the usual sterile fashion using a Betadine scrub soluti on. It is injected with 4 cc's of 1% Lidocaine with epinephrine. The lesion is excised with a #12 b lade. It is sent for pathology. There is minimal bleeding noted. Three stitches are placed of #3-0 nylon. Compression dressing is applied. The patient tolerated the procedure well without complica tion and remained in his room throughout the entirety of the procedure. He will need to follow-up in ten days for suture removal. cc: David Kingston D.O.
--- NOTE | 2019-03-30 16:34 | INITIAL_ITS ---
- If Service Date Differs Date of service: 03/30/19 Time of Service: 16:34 Care Management Initial Assess REASON FOR HOSPITALIZATION:: Bilateral PE's PAST MEDICAL HISTORY/PAST SURGICAL HISTORY:: COPD, abdominal, polanco's esophagus, BPH. Surgical consult abdominal wall hernia repair, isabella fundoplication, rotator cuff repair. PREVIOUS FUNCTIONAL STATUS/SOCIAL/FAMILY SUPPORTS:: Darrell is a 68 year old male indepedent at baseline. Yonis is and lives with his spouse in their home, he has three grown children. 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 CURRENT FUNCTIONAL STATUS:: Darrell is sitting up in bed he is alert and engaged with CM during assessment. Darrell continues to need oxygen and currently receiving Heparin IV. He will transition to oral medication to treat PE's. He did have a surgical consult for a lesion on his back today and a skin biopsy was done. Darrell reports that his spouse will bring him home at time of discharge. ADVANCE DIRECTIVES:: None on file, offered to complete with the patient and offered forms, CM will reassess willingness to complete. Has patient been provided with information about the portal?: Yes Did the patient sign up for the portal?: No (enrolled) CODE STATUS:: Full Code INSURANCE COVERAGE / FINANCIAL ISSUES:: Health Plans CURRENT HOME/COMMUNITY SERVICES/EQUIPMENT:: None PRIMARY CARE PHYSICIAN:: POTENTIAL DISCHARGE NEEDS:: Follow up appointment with primary care and new medications at time of discharge. PATIENT/FAMILY EDUCATION NEEDS:: Discharge education, limitations and follow up plan of care including self management, medications and follow up recomendations. ANTICIPATED BARRIERS TO DISCHARGE:: Darrell continues to require oxygen which is not his baseline, he does have a history of COPD and now Bilat PE's. Need for oxygen at time of discharge to be determined. TRANSPORTATION:: Via private car with spouse at time of discharge. PLAN:: Darrell will be discharged when medically ready. Anticpate no additional services unless it is determine he requires oxygen at time of discharge. CM will continue to provide support to patient ongoing discharge planning and disposition.
[2019-03-30] MEDS: Acetaminophen 325 MG TAB PO (20:41)
[2019-03-31] VITALS (8 sets, daily range): BP systolic 113–134; BP diastolic 70–80; PULSE 72–100; RESP 16–19; TEMP 36.6–37.1; O2SAT 82–96
[2019-03-31 07:13] LABS: PTT Activated 45.1 sec (21.0-31.4)
[2019-03-31] MEDS: Metoprolol CR 25 MG TABCR PO (07:38)
[2019-03-31 08:31] LABS: Abs Immature Grans 0.05 k/cumm (0.0-0.09); Absolute Basophil Count 0.01 k/cumm (0.0-0.2); Absolute Eosinophil Count 0.22 k/cumm (0.0-0.7); Absolute Lymphocyte Count 1.04 k/cumm (1.2-3.4); Absolute Monocyte Count 1.08 k/cumm (0.11-0.7); Absolute Neutrophil Count 6.53 k/cumm (1.2-6.7); Basophils % 0.1; Eosinophils % 2.5; HCT 49.5 % (40.0-50.0); HGB 16.3 g/dL (13.5-17.5); Immature Grans % 0.6 %; Lymphocytes % 11.6; Mean Corp. HGB Concentration 32.9 g/dL (32.0-36.0); Mean Corpuscular Hemoglobin 30.9 pg (27.0-33.0); Mean Corpuscular Volume 93.8 fL (80-95); Mean Platelet Volume 10.4 fL (8.0-11.0); Monocytes % 12.1; Neutrophils % 73.1; Platelet Count 201 x1000/uL (130-400); RBC 5.28 m/cumm (4.50-6.00); RBC Distribution Width 14.3 % (11.8-14.1); White Blood Cell Count 8.93 k/cumm (4.4-10.8)
[2019-03-31 08:34] LABS: Anion Gap 10.1 mmol/L (3-11); BUN 15 mg/dL (7-18); CO2 28.9 mmol/L (21.0-32.0); CREATININE 0.98 mg/dL (0.70-1.30); Calcium 8.5 mg/dL (8.5-10.1); Chloride 103 mmol/L (98-107); Glucose 101 mg/dL (74-106); Magnesium 2.2 mg/dL (1.8-2.4); Potassium 4.7 mmol/L (3.5-5.1); Sodium 142 mmol/L (136-145)
[2019-03-31] MEDS: Budesonide/Formoterol 80/4.5 6.9 GM 60 PUFF INH IH ×2 (08:35→20:23)
--- NOTE | 2019-03-31 09:20 | DI.RAD_ITS ---
EXAM: XR PORTABLE CHEST AP INDICATION: fever, PE - concern for pneumonia. COMPARISON: XR CHEST 2V PA LATERAL from 08/24/2018 XR CHEST 2V PA LATERAL from 03/29/2019 CT CHEST PE ABD PELVIS W from 03/29/2019 TECHNIQUE: 2D digital imaging was performed. FINDINGS: Severe emphysematous changes are again noted. There are increased densities at the right lung base c ompared with the previous exam which could represent atelectasis versus pulmonary infarct or pneumoni a. IMPRESSION: Increasing densities at the right lower lobe.
--- NOTE | 2019-03-31 09:31 | PDOC.CMPRO ---
- If Service Date Differs Date of service: 03/31/19 (n) Time of Service: 09:32 Care Management Progress Note S/O: Darrell is ambulating in the halls with his spouse. He does not want to be on oxygen at time of discharge, he was hopeful he could return home today however at this time he is still requiring oxygen. Darrell remains in good spirts and engaged with staff, CM did provide Advance directive forms he will consider completing prior to discharge. A:Darrell is a 69 year old male admitted with bilat PE's, history of COPD and with a new oxygen requirement. P: Darrell will be discharged home when medically ready per provider. He will transition to oral medications to treat bilat PE's. CM will continue to provide support discharge planning and disposition to patient throughout his stay.
--- NOTE | 2019-03-31 11:53 | DI.VRAD_ITS ---
PROCEDURE INFORMATION: Exam: XR Chest, 1 View Exam date and time: 03/31/2019 11:22 AM Age: 69 years old Clinical indication: Other: Pe, concern of pneumonia TECHNIQUE: Imaging protocol: XR of the chest Views: 1 view. COMPARISON: CR XR CHEST 2V PA LATERAL 03/29/2019 7:45 PM FINDINGS: Lungs: There is increased right basilar airspace disease, favored to be due to atelectasis given its morphology. Hyperlucency of the upper lobes compatible with emphysema. Pleural space: Trace right pleural effusion. Heart/Mediastinum: The heart is not enlarged. The mediastinal contours are normal. Bones/joints: No acute osseous abnormality. Other findings: Small left epicardial fat pad. IMPRESSION: 1. Increased right basilar airspace disease, although atelectasis favored. 2. Emphysema. Dictated and Authenticated by: Theodore Alaniz MD. Ordering:SANA Tobin MD
--- NOTE | 2019-03-31 12:10 | W.PM.PROGNOT ---
Date of Service Date of service: 03/31/19 Time of Service: 12:11 Assessment and Plan Assessment and plan (1) Pulmonary embolism: Status: Chronic Assessment and plan: Due to left calf superficial and deep vein thromboses, seemingly unprovoked. Skin lesion biopsied 03/30/18, pathology is not back. Does have a past history of smoking. No periods of prolonged immobilization or recent surgery. Colonoscopy in 2010 unremarkable. PSA wnl within the last 2 years. Transition to apixiban. Continue to wean O2 as tolerated, but his oxygen requirement is still too high for discharge home. Add IS as likely developed atelectasis due to pleuritic chest pain. (2) Moderate pulmonary arterial systolic hypertension: Status: Acute Assessment and plan: In setting of Acute PE. Monitor volume status carefully. Will need outpatient follow up. Supplement O2. (3) Hypoxia: Status: Acute Assessment and plan: Due to PE/pulmonary hypertension. Wean O2 as tolerated. Add humidification to oxygen. Continue to monitor oxygen while ambulating. (4) Emphysema of lung: Status: Acute Assessment and plan: Continue current inhaler and oxygen as above. (5) Hypertension: Status: Chronic Assessment and plan: Continue beta blockers (6) Skin lesion of back: Status: Acute Assessment and plan: S/p excisional bx yesterday by Dr Last. F/u pathology as outpatient. (7) DVT prophylaxis: Status: Acute Assessment and plan: On therapeutic anticoagulation (transitioning to eliquis) (8) Discharge planning issues: Status: Acute Assessment and plan: Full code. High oxygen requirement is precluding discharge home at this time. Subjective Subjective Interval history since last seen: Mr Rawls states that he feels well. Denies dizziness, chest pain (the R-sided pleuritic pain has resolved), palpitations, shortness of breath, nausea. At rest, he requires 4 L of O2. While ambulating on 6L, he desaturated down to 86%. He expressed to care management that he did not want to wear oxygen as outpatient. T max 38.0. Exam Narrative Exam Narrative: General: Very pleasant male, mildly dyspneic while eating, but recovers very quickly, A&Ox3, sitting comfortably in bed HEENT: EOMI, MMM Heart: RRR, no m/r/g Lungs: Coarse breath sounds B, no wheezing Abdomen: soft, nontender, nondistended Extremities: trace edema BLE's. Objective Objective Clinical Data: Abnormal lab results 03/30/19 03/31/19 03/31/19 Range/Units 12:30 06:43 06:43 RDW 14.3 H (11.8-14.1) % Absolute Lymphocytes 1.04 L (1.2-3.4) k/cumm Absolute Monocytes 1.08 H (0.11-0.7) k/cumm APTT 62.2 H D 45.1 H (21.0-31.4) sec Vital Signs Temperature 37.1 C 03/31/19 11:35 Temperature Source Tympanic 03/31/19 11:35 Pulse 82 03/31/19 11:35 Pulse Rhythm Regular 03/31/19 07:20 Pulse 91 H 03/29/19 21:16 Respiratory Rate 19 03/31/19 11:35 Respiratory Effort Non-Labored 03/31/19 07:20 Respiratory Depth Normal 03/31/19 07:20 Respiratory Pattern Normal 03/31/19 07:20 Blood Pressure 121/79 03/31/19 11:35 Blood Pressure Mean 84 03/29/19 21:16 Pulse Oximetry 91 L 03/31/19 11:35 Oxygen Delivery Method Nasal Cannula 03/31/19 11:35 Oxygen Flow Rate 4 03/31/19 11:35 Pain Level 2 03/31/19 11:35 Comment 03/30/19 15:27 Intake & Output 03/30/19 03/31/19 03/31/19 23:59 11:59 23:59 Intake Total 690 / 1201.592 678.033 / 678.033 Balance 690 / 1076.592 678.033 / 678.033 Weight 82.6 kg Intake: IV 228.033 / 228.033 Oral 690 / 1050 450 / 450 Other: Comment Pt stated that he is voiding in the toilet and flushing. Laboratory Results WBC 8.93 k/cumm (4.4-10.8) 03/31/19 06:43 RBC 5.28 m/cumm (4.50-6.00) 03/31/19 06:43 Hgb 16.3 g/dL (13.5-17.5) 03/31/19 06:43 Hct 49.5 % (40.0-50.0) 03/31/19 06:43 MCV 93.8 fL (80-95) 03/31/19 06:43 MCH 30.9 pg (27.0-33.0) 03/31/19 06:43 MCHC 32.9 g/dL (32.0-36.0) 03/31/19 06:43 RDW 14.3 % (11.8-14.1) H 03/31/19 06:43 Plt Count 201 x1000/uL (130-400) 03/31/19 06:43 MPV 10.4 fL (8.0-11.0) 03/31/19 06:43 Immature Gran % 0.6 % 03/31/19 06:43 Neutrophils % 73.1 03/31/19 06:43 Lymphocytes % 11.6 03/31/19 06:43 Monocytes % 12.1 03/31/19 06:43 Eosinophils % 2.5 03/31/19 06:43 Basophils % 0.1 03/31/19 06:43 Absolute Neutrophils 6.53 k/cumm (1.2-6.7) 03/31/19 06:43 Absolute Lymphocytes 1.04 k/cumm (1.2-3.4) L 03/31/19 06:43 Absolute Monocytes 1.08 k/cumm (0.11-0.7) H 03/31/19 06:43 Absolute Eosinophils 0.22 k/cumm (0.0-0.7) 03/31/19 06:43 Absolute Basophils 0.01 k/cumm (0.0-0.2) 03/31/19 06:43 PT 10.6 sec (9.3-11.0) 03/29/19 19:00 INR 1.1 (0.9-1.1) 03/29/19 19:00 APTT 45.1 sec (21.0-31.4) H 03/31/19 06:43 D-Dimer 1651 ng/mlFEU (<500) H 03/29/19 19:00 Sample Site Unknown 03/29/19 19:30 pCO2 43 mmHg (34-47) 03/29/19 19:30 pO2 58 mmHg (83-108) L 03/29/19 19:30 O2 Saturation 89 % (94-98) L 03/29/19 19:30 ABG pH 7.41 (7.35-7.45) 03/29/19 19:30 ABG HCO3 27 mmol/L (22-28) 03/29/19 19:30 ABG Total CO2 23 mmol/L (22-29) 03/29/19 19:30 ABG Base Excess 2.5 mmol/L (-3-3) 03/29/19 19:30 Sodium 142 mmol/L (136-145) 03/31/19 06:45 Potassium 4.7 mmol/L (3.5-5.1) 03/31/19 06:45 Chloride 103 mmol/L (98-107) 03/31/19 06:45 Carbon Dioxide 28.9 mmol/L (21.0-32.0) 03/31/19 06:45 Anion Gap 10.1 mmol/L (3-11) 03/31/19 06:45 BUN 15 mg/dL (7-18) 03/31/19 06:45 Creatinine 0.98 mg/dL (0.70-1.30) 03/31/19 06:45 Estimated GFR/1.73 m2 >= 60.00 (mL/min/1.73m2) 03/31/19 06:45 Glucose 101 mg/dL (74-106) 03/31/19 06:45 Calcium 8.5 mg/dL (8.5-10.1) 03/31/19 06:45 Magnesium 2.2 mg/dL (1.8-2.4) 03/31/19 06:45 Total Bilirubin 1.0 mg/dL (0.2-1.0) 03/30/19 04:20 AST 16 U/L (15-37) 03/30/19 04:20 ALT 17 U/L (16-63) 03/30/19 04:20 Alkaline Phosphatase 57 U/L (46-116) 03/30/19 04:20 Troponin I < 0.05 ng/Ml (<0.06) 03/29/19 22:00 NT-Pro-B Natriuret Pep 506 pg/mL (<300) H 03/29/19 19:00 Total Protein 6.2 g/dL (6.4-8.2) L 03/30/19 04:20 Albumin 2.7 g/dL (3.4-5.0) L 03/30/19 04:20 CXR: 1. Increased right basilar airspace disease, although atelectasis favored. 2. Emphysema.
[2019-03-31] MEDS: Apixaban 5 MG TAB 10 MG PO (20:22)
[2019-04-01] VITALS (7 sets, daily range): BP systolic 115–132; BP diastolic 78–84; PULSE 74–84; RESP 16–20; TEMP 36.2–36.9; O2SAT 90–93
[2019-04-01 07:47] LABS: Abs Immature Grans 0.03 k/cumm (0.0-0.09); Absolute Basophil Count 0.01 k/cumm (0.0-0.2); Absolute Eosinophil Count 0.17 k/cumm (0.0-0.7); Absolute Monocyte Count 0.82 k/cumm (0.11-0.7); Absolute Neutrophil Count 5.58 k/cumm (1.2-6.7); Basophils % 0.1; Eosinophils % 2.3; HCT 50.3 % (40.0-50.0); HGB 16.3 g/dL (13.5-17.5); Immature Grans % 0.4 %; Lymphocytes % 10.8; Mean Corp. HGB Concentration 32.4 g/dL (32.0-36.0); Mean Corpuscular Hemoglobin 30.5 pg (27.0-33.0); Monocytes % 11.1; Neutrophils % 75.3; Platelet Count 225 x1000/uL (130-400); RBC 5.35 m/cumm (4.50-6.00); RBC Distribution Width 14.1 % (11.8-14.1); White Blood Cell Count 7.41 k/cumm (4.4-10.8)
[2019-04-01] MEDS: Budesonide/Formoterol 80/4.5 6.9 GM 60 PUFF INH IH ×2 (07:56→19:11)
[2019-04-01 08:03] LABS: BUN 17 mg/dL (7-18); CREATININE 0.94 mg/dL (0.70-1.30); Calcium 8.9 mg/dL (8.5-10.1); Chloride 102 mmol/L (98-107); Glucose 111 mg/dL (74-106); Magnesium 2.1 mg/dL (1.8-2.4); Potassium 4.8 mmol/L (3.5-5.1); Sodium 140 mmol/L (136-145)
[2019-04-01] MEDS: Apixaban 5 MG TAB 10 MG PO ×2 (09:10→19:11)
[2019-04-01] MEDS: Metoprolol CR 25 MG TABCR PO (09:10)
[2019-04-01] MEDS: Acetaminophen 325 MG TAB PO (14:15)
--- NOTE | 2019-04-01 16:48 | W.PM.PROGNOT ---
Date of Service Date of service: 04/01/19 Time of Service: 16:48 Assessment and Plan Assessment and plan (1) Pulmonary embolism: Status: Chronic Assessment and plan: Due to left calf superficial and deep vein thromboses, seemingly unprovoked. Skin lesion biopsied 03/30/18, pathology is pending. Does have a past history of smoking. Continue apixaban. Continue to wean O2 as tolerated. Oxygen requirement has not changed. Does have atelectasis on CXR - encourage IS (2) Moderate pulmonary arterial systolic hypertension: Status: Acute Assessment and plan: In setting of Acute PE. Monitor volume status carefully. Will need outpatient follow up. Supplement O2. (3) Hypoxia: Status: Acute Assessment and plan: Due to PE/pulmonary hypertension. Wean O2 as tolerated. (4) Emphysema of lung: Status: Acute Assessment and plan: Continue current inhaler and oxygen as above. (5) Hypertension: Status: Chronic Assessment and plan: Continue beta blockers (6) Skin lesion of back: Status: Acute Assessment and plan: S/p excisional bx yesterday by Dr Last. F/u pathology as outpatient. (7) Neck pain: Status: Acute Assessment and plan: Appears to be due to a muscle spasm. Offer lidocaine patch, flexeril, and consult PT. (8) DVT prophylaxis: Status: Acute Assessment and plan: On therapeutic anticoagulation (transitioning to eliquis) (9) Discharge planning issues: Status: Acute Assessment and plan: Full code. High oxygen requirement is precluding discharge home at this time. Subjective Subjective Interval history since last seen: Reports L neck pain since waking up this morning. Feels like something is catchign. Denies dizziness, chest pain, shortness of breath, nausea. Exam Narrative Exam Narrative: General: Very pleasant male, sitting up in bed, appears uncomfortable when turning his head HEENT: EOMI, MMM; L paraspinal muscles TTP Heart: RRR, no m/r/g Lungs: Coarse breath sounds B, no wheezing Abdomen: soft, nontender, nondistended Extremities: trace edema BLE's. Objective Objective Clinical Data: Abnormal lab results 04/01/19 04/01/19 Range/Units 07:36 07:36 Hct 50.3 H (40.0-50.0) % Absolute Lymphocytes 0.80 L (1.2-3.4) k/cumm Absolute Monocytes 0.82 H (0.11-0.7) k/cumm Glucose 111 H (74-106) mg/dL Vital Signs Temperature 36.9 C 04/01/19 15:25 Temperature Source Tympanic 04/01/19 15:25 Pulse 74 04/01/19 15:25 Pulse Rhythm Regular 04/01/19 09:05 Pulse 91 H 03/29/19 21:16 Respiratory Rate 18 04/01/19 15:25 Respiratory Effort Non-Labored 04/01/19 09:05 Respiratory Depth Normal 04/01/19 09:05 Respiratory Pattern Normal 04/01/19 09:05 Blood Pressure 125/82 04/01/19 15:25 Blood Pressure Mean 84 03/29/19 21:16 Pulse Oximetry 90 L 04/01/19 15:25 Oxygen Delivery Method Nasal Cannula 04/01/19 15:25 Oxygen Flow Rate 3 04/01/19 15:25 Pain Level 2 04/01/19 15:25 Comment 04/01/19 04:15 Intake & Output 03/31/19 04/01/19 04/01/19 23:59 11:59 23:59 Intake Total 263.583 / 941.616 250 / 500 250 / 500 Balance 263.583 / 941.616 250 / 500 250 / 500 Weight 82.5 kg Intake: IV 163.583 / 391.616 Oral 100 / 550 250 / 500 250 / 500 Other: Urine Color Yellow Urine Appearance Clear Clear Comment pt voids independently in bathroom voids independently in toilet Voiding Methods Toilet Toilet Laboratory Results WBC 7.41 k/cumm (4.4-10.8) 04/01/19 07:36 RBC 5.35 m/cumm (4.50-6.00) 04/01/19 07:36 Hgb 16.3 g/dL (13.5-17.5) 04/01/19 07:36 Hct 50.3 % (40.0-50.0) H 04/01/19 07:36 MCV 94.0 fL (80-95) 04/01/19 07:36 MCH 30.5 pg (27.0-33.0) 04/01/19 07:36 MCHC 32.4 g/dL (32.0-36.0) 04/01/19 07:36 RDW 14.1 % (11.8-14.1) 04/01/19 07:36 Plt Count 225 x1000/uL (130-400) 04/01/19 07:36 MPV 10.0 fL (8.0-11.0) 04/01/19 07:36 Immature Gran % 0.4 % 04/01/19 07:36 Neutrophils % 75.3 04/01/19 07:36 Lymphocytes % 10.8 04/01/19 07:36 Monocytes % 11.1 04/01/19 07:36 Eosinophils % 2.3 04/01/19 07:36 Basophils % 0.1 04/01/19 07:36 Absolute Neutrophils 5.58 k/cumm (1.2-6.7) 04/01/19 07:36 Absolute Lymphocytes 0.80 k/cumm (1.2-3.4) L 04/01/19 07:36 Absolute Monocytes 0.82 k/cumm (0.11-0.7) H 04/01/19 07:36 Absolute Eosinophils 0.17 k/cumm (0.0-0.7) 04/01/19 07:36 Absolute Basophils 0.01 k/cumm (0.0-0.2) 04/01/19 07:36 PT 10.6 sec (9.3-11.0) 03/29/19 19:00 INR 1.1 (0.9-1.1) 03/29/19 19:00 APTT 45.1 sec (21.0-31.4) H 03/31/19 06:43 D-Dimer 1651 ng/mlFEU (<500) H 03/29/19 19:00 Sample Site Unknown 03/29/19 19:30 pCO2 43 mmHg (34-47) 03/29/19 19:30 pO2 58 mmHg (83-108) L 03/29/19 19:30 O2 Saturation 89 % (94-98) L 03/29/19 19:30 ABG pH 7.41 (7.35-7.45) 03/29/19 19:30 ABG HCO3 27 mmol/L (22-28) 03/29/19 19:30 ABG Total CO2 23 mmol/L (22-29) 03/29/19 19:30 ABG Base Excess 2.5 mmol/L (-3-3) 03/29/19 19:30 Sodium 140 mmol/L (136-145) 04/01/19 07:36 Potassium 4.8 mmol/L (3.5-5.1) 04/01/19 07:36 Chloride 102 mmol/L (98-107) 04/01/19 07:36 Carbon Dioxide 32.0 mmol/L (21.0-32.0) 04/01/19 07:36 Anion Gap 6.0 mmol/L (3-11) 04/01/19 07:36 BUN 17 mg/dL (7-18) 04/01/19 07:36 Creatinine 0.94 mg/dL (0.70-1.30) 04/01/19 07:36 Estimated GFR/1.73 m2 >= 60.00 (mL/min/1.73m2) 04/01/19 07:36 Glucose 111 mg/dL (74-106) H 04/01/19 07:36 Calcium 8.9 mg/dL (8.5-10.1) 04/01/19 07:36 Magnesium 2.1 mg/dL (1.8-2.4) 04/01/19 07:36 Total Bilirubin 1.0 mg/dL (0.2-1.0) 03/30/19 04:20 AST 16 U/L (15-37) 03/30/19 04:20 ALT 17 U/L (16-63) 03/30/19 04:20 Alkaline Phosphatase 57 U/L (46-116) 03/30/19 04:20 Troponin I < 0.05 ng/Ml (<0.06) 03/29/19 22:00 NT-Pro-B Natriuret Pep 506 pg/mL (<300) H 03/29/19 19:00 Total Protein 6.2 g/dL (6.4-8.2) L 03/30/19 04:20 Albumin 2.7 g/dL (3.4-5.0) L 03/30/19 04:20
[2019-04-01] MEDS: Lidocaine 5% Patch 1 PATCH TP (17:25)
[2019-04-01] MEDS: Cyclobenzaprine 10 MG TAB 5 MG PO (17:25)
[2019-04-02] VITALS (14 sets, daily range): BP systolic 117–173; BP diastolic 71–85; PULSE 68–86; RESP 16–19; TEMP 35.9–37.1; O2SAT 88–95
[2019-04-02] MEDS: Cyclobenzaprine 10 MG TAB 5 MG PO ×2 (00:11→19:16)
[2019-04-02] MEDS: Acetaminophen 325 MG TAB PO (00:12)
[2019-04-02] MEDS: Patch Removal 1 EACH TP (06:13)
[2019-04-02 06:55] LABS: Abs Immature Grans 0.02 k/cumm (0.0-0.09); Absolute Basophil Count 0.01 k/cumm (0.0-0.2); Absolute Eosinophil Count 0.24 k/cumm (0.0-0.7); Absolute Lymphocyte Count 0.88 k/cumm (1.2-3.4); Absolute Monocyte Count 0.84 k/cumm (0.11-0.7); Absolute Neutrophil Count 5.14 k/cumm (1.2-6.7); Basophils % 0.1; Eosinophils % 3.4; HCT 50.1 % (40.0-50.0); HGB 16.3 g/dL (13.5-17.5); Immature Grans % 0.3 %; Lymphocytes % 12.3; Mean Corp. HGB Concentration 32.5 g/dL (32.0-36.0); Mean Corpuscular Hemoglobin 30.4 pg (27.0-33.0); Mean Corpuscular Volume 93.5 fL (80-95); Monocytes % 11.8; Neutrophils % 72.1; Platelet Count 246 x1000/uL (130-400); RBC 5.36 m/cumm (4.50-6.00); RBC Distribution Width 14.1 % (11.8-14.1); White Blood Cell Count 7.13 k/cumm (4.4-10.8)
[2019-04-02 07:06] LABS: Anion Gap 4.2 mmol/L (3-11); BUN 16 mg/dL (7-18); CO2 32.8 mmol/L (21.0-32.0); Calcium 9.1 mg/dL (8.5-10.1); Chloride 100 mmol/L (98-107); Glucose 104 mg/dL (74-106); Magnesium 1.9 mg/dL (1.8-2.4); Potassium 4.7 mmol/L (3.5-5.1); Sodium 137 mmol/L (136-145)
[2019-04-02] MEDS: Metoprolol CR 25 MG TABCR PO (08:48)
[2019-04-02] MEDS: Apixaban 5 MG TAB 10 MG PO ×2 (08:48→19:16)
[2019-04-02] MEDS: Budesonide/Formoterol 80/4.5 6.9 GM 60 PUFF INH IH ×2 (08:52→19:16)
--- NOTE | 2019-04-02 14:38 | PT.INIE ---
Date of service: 04/02/19 Time of Service: 09:00 PT Notes Visit Reasons: BILATERAL PE Physical Therapy Inpatient Initial Evaluation Date: 04/02/2019 Referring Doctor: Crista Pendleton MD PT Orders: PT CONSULT: Limited ability Precautions: Standard. Activity as tolerated. Patient Profile/Admitting Diagnosis: Patient is a 69-year-old male who presented to the ED on 03/29/2019 with chief chief complaints of chest discomfort and shortness of breath. Patient is diagnosed with pulmonary embolism, emphysema of lung with associated hypoxia, right lower lobe atelectasis. He is also status post excision biopsy of skin lesion in upper back on 03/30/2019. PMHX: Medical History Jensen's esophagus (Inactive) BPH without urinary obstruction (Inactive) COPD (chronic obstructive pulmonary disease) case management patient (Inactive) Surgical History abdominal wall hernia repair 03/2004 Colonoscopy - MAC (~2006) 2007 10/2010 Extraction of cataract Elida Fundoplication (~1997) Rotator Cuff Repair (~07/2010) right Social History/Home Situation: Patient lives in a private home with 4 steps with both rails that lead onto a deck. 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 He is independent with all activities of daily living without the need for an assistive ambulatory device nor adaptive equipment. He hopes to return to work full-time when he is medically cleared to do so. Equipment Owned/DME: None. Subjective: Patient is agreeable to a PT consult. He does not report any chest pain throughout PT assessment. He denies headache and dizziness. He did not complain of shortness of breath although he did appear out of breath after gait assessment. Objective: General Observation: Patient in no apparent distress upon arrival of PT in patient's room. Oxygen supplementation at 2.5 L/min via nasal cannula. Purplish discoloration of distal forearm in bilateral hands with exertion especially with gait activity seen. Wound dressing over surgical incision in back. Mental Status: Alert and oriented x4 ROM: Right Upper Extremity: Shoulder Flexion WFL. Shoulder abduction WFL. Elbow flexion WFL. Wrist flexion WFL. Opening and closing of hand WFL. Left Upper Extremity: Shoulder Flexion WFL. Shoulder abduction WFL. Elbow flexion WFL. Wrist flexion WFL. Opening and closing of hand WFL. Right Lower Extremity: Hip flexion WFL. Hip abduction WFL. Knee flexion WFL. Ankle dorsiflexion WFL. Ankle plantarflexion WFL. Left Lower Extremity: Hip flexion WFL. Hip abduction WFL. Knee flexion WFL. Ankle dorsiflexion WFL. Ankle plantarflexion WFL. Strength: Right Upper Extremity: Shoulder flexors 5/5. Shoulder abductors 5/5. Elbow flexors 5/5. Elbow extensors 5/5. Aircraft Systems Technician strong. Left Upper Extremity: Shoulder flexors 5/5. Shoulder abductors 5/5. Elbow flexors 5/5. Elbow extensors 5/5. Aircraft Systems Technician strong. Right Lower Extremity: Hip flexors 5/5. Hip abductors 5/5. Knee flexors 5/5. Knee extensors 5/5. Ankle dorsiflexors 5/5. Ankle plantarflexors 5/5. Left Lower Extremity:Hip flexors 5/5. Hip abductors 5/5. Knee flexors 5/5. Knee extensors 5/5. Ankle dorsiflexors 5/5. Ankle plantarflexors 5/5. Sensation: Intact as to pain and pressure on bilateral lower extremities. Bed Mobility/Transfers: Sit to stand independent Stand to sit independent Bed to chair independent Chair to bed independent Gait: Then we did 150 right patient tolerated level surface ambulation of 150 feet without an assistive device with CGA of PT and SBA student PT with minimal breathlessness seen towards the end of ambulation activity with patient on 3 L/min of oxygen via NC with reduction to 2 L/min towards the last 80 feet of the walk. Patient required no cues for safety. No LOB. Gait pattern unremarkable. Balance: Static Sitting: Normal Dynamic Sitting: Normal Static Standing: Normal Dynamic Standing: Good Special Tests: Mobility Limitations Standardized Measure [facility] AM-PAC 6 clicks Basic Mobility Inpatient Short Form: Raw Score: 23 and 11% 23 CMS Score: 11% deficit Informed Consent/Education: Patient instructed in purpose of PT consult and plan of care. Assessment: Patient is a 69-year-old male who presented to the ED on 03/29/2019 with chief chief complaints of chest discomfort and shortness of breath. Patient is diagnosed with pulmonary embolism, emphysema of lung with associated hypoxia, right lower lobe atelectasis. He is also status post excision biopsy of skin lesion in upper back on 03/30/2019. Patient was presents with impairment level findings and functional limitations as listed below. Patient presents with clinical signs and symptoms consistent with current/admitting diagnoses that have resulted to mobility limitations, gait instability, generalized weakness, and impairment of motor control as demonstrated by the following impairment level findings: 1. Impaired impaired dynamic standing balance 2. Impaired activity tolerance Impairments are contributing to the following functional limitations: 1. Increase completion time for mobility ADL performance 2. Inability to return to vocational activities safely Patient is assessed as a 36091 moderate his independent with his transfers to right gaze which is the walking complexity based on the following: History: 69-year-old male with past medical history, impairment level findings, functional limitations, and [place] [facility] deficit score of 11% Examination: Demonstrable impairment in strength, balance, and range of motion with underlying impairments and functional limitations as documented above Presentation: Evolving Decision Makin moderate complexity Goals: Goals X1 week 1. Independent gait on level surface with use of least restrictive device for at least 1000 feet without report dyspnea with 2 L of oxygen per minute via NC 2. Independent stair negotiation while holding onto bilateral rails for at least 5 steps without report of dyspnea without report dyspnea with 2 L of oxygen per minute via NC 3. Independent with home exercise program 4. Normal minimal change static and dynamic standing balance/tolerance Plan of Care/Treatment Plan: 1-2x/day, 7 days/week x 1 week. Plan of care has been reviewed with the [employer]ATION[employer] providing the service under Physical Therapy direction. Initiate Physical Therapy intervention for strengthening, bed mobility, transfers, gait, stairs, balance training, use of assistive device. DISCHARGE RECOMMENDATIONS: Patient will benefit from outpatient pulmonary rehabilitation in order to facilitate return to vocational activities. TREATMENT CODE/TIME: 51323 x 28 minutes beginning at 9 AM. Thank you very much for this referral. Marleny Avalos PT, DPT, CLT [facility] [place], [place]
--- NOTE | 2019-04-02 15:05 | PT.INTREAT ---
Date of service: 04/02/19 Time of Service: 13:50 PT Notes Visit Reasons: BILATERAL PE Inpatient Physical Therapy Treatment Note [facility] Date: 04/02/2019 PRECAUTIONS: Standard. Activity as tolerated. SUBJECTIVE: Patient is hoping that he can go home today. Patient continues to deny chest pain and shortness of breath for the afternoon session. OBJECTIVE: Patient demonstrates mild to moderate shortness of breath throughout PT session and continues to exhibit purplish discoloration of bilateral hands aggravated with ambulation activity. PAIN: None. Is BED MOBILITY/TRANSFERS Sit-stand: Independent Stand-sit: Independent Bed-Chair: Independent Chair-bed: Independent GAIT Assistive Device: None Weight bearing: FWB Assist: SBA of PT and student PT Distance: 240 feet +240 feet Deviation and oxygen saturation: Gait pattern unremarkable. Patient on 8 L/min of oxygen supplementation via NC with oxygen saturation measured via finger for the first for the first 240 feet and via the earlobe for the second 240 feet. Patient's oxygen saturation dipped down to as low as 87% for the first 240 feet but stayed from 90 to 92% for the second 240 feet when taken via the earlobe. ASSESSMENT: Patient will continue to benefit from skilled PT services in order to address deficits in ambulation tolerance and to facilitate return to vocational activities without restrictions. PLAN: Continue with PT POC as initially established. TREATMENT CODE/TIME: 69708 x 35 minutes beginning at 1350 p.m..
--- NOTE | 2019-04-02 15:34 | W.PM.PROGNOT ---
Date of Service Date of service: 04/02/19 Time of Service: 15:34 Assessment and Plan Assessment and plan (1) Pulmonary embolism: Status: Chronic Assessment and plan: Due to left calf superficial and deep vein thromboses, seemingly unprovoked. Skin lesion biopsied 03/30/18, pathology is pending. Does have a past history of smoking. Continue apixaban. Continue to wean O2 as tolerated. Oxygen requirement has not changed. Will discuss with RT if there is any benefit from trying humidified heated high flow/PEEP to improve atelectasis. He is compliant with IS. Will require outpatient cardiopulmonary rehab (2) Moderate pulmonary arterial systolic hypertension: Status: Acute Assessment and plan: In setting of Acute PE. Monitor volume status carefully. Will need outpatient follow up. Supplement O2. (3) Hypoxia: Status: Acute Assessment and plan: Due to PE/pulmonary hypertension. Wean O2 as tolerated. (4) Emphysema of lung: Status: Acute Assessment and plan: Continue current inhaler and oxygen as above. (5) Hypertension: Status: Chronic Assessment and plan: Continue beta blockers (6) Skin lesion of back: Status: Acute Assessment and plan: S/p excisional bx yesterday by Dr Last. F/u pathology as outpatient. (7) Neck pain: Status: Acute Assessment and plan: Appears to be due to a muscle spasm. Better. Continue lidocaine patch, prn flexeril. Continue PT (8) DVT prophylaxis: Status: Acute Assessment and plan: On therapeutic anticoagulation (eliquis) (9) Discharge planning issues: Status: Acute Assessment and plan: Full code. High oxygen requirement is precluding discharge home at this time. Subjective Subjective Interval history since last seen: The oxygen requirements do not appear to be budging. COntinues to require 4L at rest and 6L with ambulation. Denies dizziness, chest pain, shortness of breath, nausea. L neck pain is much better, but is still there. Exam Narrative Exam Narrative: General: Very pleasant male, sitting up in a chair HEENT: EOMI, MMM Heart: RRR, no m/r/g Lungs: Coarse breath sounds B, no wheezing Abdomen: soft, nontender, nondistended Extremities: trace edema BLE's. Objective Objective Clinical Data: Abnormal lab results 04/02/19 04/02/19 Range/Units 06:25 06:25 Hct 50.1 H (40.0-50.0) % Absolute Lymphocytes 0.88 L (1.2-3.4) k/cumm Absolute Monocytes 0.84 H (0.11-0.7) k/cumm Carbon Dioxide 32.8 H (21.0-32.0) mmol/L Vital Signs Temperature 36.4 C L 04/02/19 11:05 Temperature Source Tympanic 04/02/19 11:05 Pulse 76 04/02/19 11:05 Pulse Rhythm Regular 04/02/19 09:27 Pulse 91 H 03/29/19 21:16 Respiratory Rate 18 04/02/19 11:05 Respiratory Effort Non-Labored 04/02/19 09:27 Respiratory Depth Normal 04/02/19 09:27 Respiratory Pattern Normal 04/02/19 09:27 Blood Pressure 148/71 H 04/02/19 11:05 Blood Pressure Mean 84 03/29/19 21:16 Pulse Oximetry 95 04/02/19 13:02 Oxygen Delivery Method Nasal Cannula 04/02/19 13:02 Oxygen Flow Rate 4 04/02/19 13:02 Pain Level 0 04/02/19 11:05 Comment 04/01/19 04:15 Intake & Output 04/01/19 04/02/19 04/02/19 23:59 11:59 23:59 Intake Total 650 / 900 250 / 500 250 / 500 Balance 650 / 900 250 / 500 250 / 500 Weight 82 kg Intake: IV Oral 650 / 900 240 / 490 250 / 490 Other: Comment void per patient Voiding Methods Toilet Toilet Laboratory Results WBC 7.13 k/cumm (4.4-10.8) 04/02/19 06:25 RBC 5.36 m/cumm (4.50-6.00) 04/02/19 06:25 Hgb 16.3 g/dL (13.5-17.5) 04/02/19 06:25 Hct 50.1 % (40.0-50.0) H 04/02/19 06:25 MCV 93.5 fL (80-95) 04/02/19 06:25 MCH 30.4 pg (27.0-33.0) 04/02/19 06:25 MCHC 32.5 g/dL (32.0-36.0) 04/02/19 06:25 RDW 14.1 % (11.8-14.1) 04/02/19 06:25 Plt Count 246 x1000/uL (130-400) 04/02/19 06:25 MPV 10.0 fL (8.0-11.0) 04/02/19 06:25 Immature Gran % 0.3 % 04/02/19 06:25 Neutrophils % 72.1 04/02/19 06:25 Lymphocytes % 12.3 04/02/19 06:25 Monocytes % 11.8 04/02/19 06:25 Eosinophils % 3.4 04/02/19 06:25 Basophils % 0.1 04/02/19 06:25 Absolute Neutrophils 5.14 k/cumm (1.2-6.7) 04/02/19 06:25 Absolute Lymphocytes 0.88 k/cumm (1.2-3.4) L 04/02/19 06:25 Absolute Monocytes 0.84 k/cumm (0.11-0.7) H 04/02/19 06:25 Absolute Eosinophils 0.24 k/cumm (0.0-0.7) 04/02/19 06:25 Absolute Basophils 0.01 k/cumm (0.0-0.2) 04/02/19 06:25 PT 10.6 sec (9.3-11.0) 03/29/19 19:00 INR 1.1 (0.9-1.1) 03/29/19 19:00 APTT 45.1 sec (21.0-31.4) H 03/31/19 06:43 D-Dimer 1651 ng/mlFEU (<500) H 03/29/19 19:00 Sample Site Unknown 03/29/19 19:30 pCO2 43 mmHg (34-47) 03/29/19 19:30 pO2 58 mmHg (83-108) L 03/29/19 19:30 O2 Saturation 89 % (94-98) L 03/29/19 19:30 ABG pH 7.41 (7.35-7.45) 03/29/19 19:30 ABG HCO3 27 mmol/L (22-28) 03/29/19 19:30 ABG Total CO2 23 mmol/L (22-29) 01/02/20 19:30 ABG Base Excess 2.5 mmol/L (-3-3) 03/29/19 19:30 Sodium 137 mmol/L (136-145) 04/02/19 06:25 Potassium 4.7 mmol/L (3.5-5.1) 04/02/19 06:25 Chloride 100 mmol/L (98-107) 04/02/19 06:25 Carbon Dioxide 32.8 mmol/L (21.0-32.0) H 04/02/19 06:25 Anion Gap 4.2 mmol/L (3-11) 04/02/19 06:25 BUN 16 mg/dL (7-18) 04/02/19 06:25 Creatinine 0.90 mg/dL (0.70-1.30) 04/02/19 06:25 Estimated GFR/1.73 m2 >= 60.00 (mL/min/1.73m2) 04/02/19 06:25 Glucose 104 mg/dL (74-106) 04/02/19 06:25 Calcium 9.1 mg/dL (8.5-10.1) 04/02/19 06:25 Magnesium 1.9 mg/dL (1.8-2.4) 04/02/19 06:25 Total Bilirubin 1.0 mg/dL (0.2-1.0) 03/30/19 04:20 AST 16 U/L (15-37) 03/30/19 04:20 ALT 17 U/L (16-63) 03/30/19 04:20 Alkaline Phosphatase 57 U/L (46-116) 03/30/19 04:20 Troponin I < 0.05 ng/Ml (<0.06) 03/29/19 22:00 NT-Pro-B Natriuret Pep 506 pg/mL (<300) H 03/29/19 19:00 Total Protein 6.2 g/dL (6.4-8.2) L 03/30/19 04:20 Albumin 2.7 g/dL (3.4-5.0) L 03/30/19 04:20
--- NOTE | 2019-04-02 18:13 | PDOC.CMPRO ---
- If Service Date Differs Date of service: 04/02/19 Time of Service: 18:13 Care Management Progress Note S/O: Darrell worked with PT today for ambulation to determine tolerance and affects on breathing. He continues to require oxygen both at rest and during activity. His was with him during CM visit. Darrell states he is feeling better and is completely independent at baseline. He does not currently require any services in the community and does not feel that will change unless he requires home oxygen. he hopes to be able to go home today. A:Darrell is a 69 year old male admitted with bilat PE's, history of COPD and with a new oxygen requirement. P: Darrell will be discharged home when medically ready per provider. He will transition to oral medications to treat bilat PE's. CM will continue to provide support discharge planning and disposition to patient throughout his stay.
[2019-04-02] MEDS: Lidocaine 5% Patch 1 PATCH TP (19:15)
[2019-04-03] VITALS (7 sets, daily range): BP systolic 122–132; BP diastolic 79–88; PULSE 72–91; RESP 16–20; TEMP 36.8–37.1; O2SAT 88–96
[2019-04-03] MEDS: Acetaminophen 325 MG TAB PO ×2 (04:16→13:14)
[2019-04-03] MEDS: Patch Removal 1 EACH TP (05:52)
[2019-04-03] MEDS: Budesonide/Formoterol 80/4.5 6.9 GM 60 PUFF INH IH (07:52)
[2019-04-03] MEDS: Metoprolol CR 25 MG TABCR PO (08:00)
[2019-04-03] MEDS: Apixaban 5 MG TAB 10 MG PO (08:01)
--- NOTE | 2019-04-03 14:44 | DSE_ITS ---
Date of service: 04/03/19 Time of Service: 14:44 DS: Diagnosis Discharge Diagnosis (1) Pulmonary embolism: Status: Chronic (2) Moderate pulmonary arterial systolic hypertension: Status: Acute (3) Hypoxia: Status: Acute (4) Emphysema of lung: Status: Acute (5) Hypertension: Status: Chronic (6) Skin lesion of back: Status: Acute (7) Neck pain: Status: Acute Discharge Plan Disposition Patient Disposition: HOME Condition: Improving Discharge Details Chief Complaint: Chest Pain Clinical Impression: Bilateral pulmonary embolism, COPD (chronic obstructive pulmonary disease) Reason For Visit: BILATERAL PE Admit Date/Time: 03/29/19 21:50 Admit Provider: Luis Felipe Lewis Attending Provider: Luis Felipe Lewis Primary Care Provider: David Kingston ED Provider: Turner [facility] Hospital Course: Darrell Rawls is a very pleasant 69-year-old man with a past medical history significant for COPD, he quit smoking in 1996, Jensen's esophagus, BPH, who presented to the emergency department on 03/29/2018 with reports of sudden onset o f right lower chest pain, pain with taking a deep breath and mild shortness of breath. In the emergency department, he was noted to have an oxygen saturation of 79%, he was afebrile, tachycardic and hypertensive. His d-dimer was elevated, he went on to have a CTA chest which showed bilateral pulmonary emboli with segmental and subsegmental clot on the right and subsegmental clots on the left, there was no evidence on CT of right heart strain. He was admitted to [facility] for further observation and management. He was started on a heparin drip. He went on to have lower extremity ultrasound s which showed left lower extremity deep calf vein thrombus as well as posterior tibial and peroneal veins. He transitioned to apixaban. He continued to have an oxygen requirement. On the day of discharge, he was maintaining oxygen saturations in the low 90s on 1 L at rest, he required 6 L of oxygen with activity to maintain saturations above 88%. With his history of COPD and an acute PE, he qualified for home oxygen. He is discharged home on apixaban, with oxygen and will follow-up with his primary care provider. Mr. Rawls was also noted to have an atypical mole on his back, in the setting of what appears to be an unprovoked DVT/PE. General surgery was consulted, Dr. Last excised the lesion, pathology is pending at the time of her discharge. He is referred to hematology for what appears to be an unprovoked DVT. He is also referred to pulmonology for follow-up. He will follow-up with his primary care provider as scheduled. Home Meds and New Rx's Prescriptions: New Eliquis 5 mg Tablet 10 mg PO BID Qty: 60 RF: 0 cyclobenzaprine 10 mg Tablet 5 mg PO TID PRN PRNQty: 9 RF: 0 lidocaine 5 % adhesive patch,medicated 1 patch TP DAILY Qty: 15 RF: 0 Continued Symbicort 80-4.5 mcg/actuation HFA aerosol inhaler 2 puff IH BID Qty: 10.2 RF: 6 metoprolol succinate [Toprol XL] 25 mg tablet extended release 24 hr 25 mg PO DAILY Qty: 60 RF: 6 Discontinued aspirin [Ecotrin Low Strength] 81 MG tablet,delayed release (DR/EC) 81 mg PO DAILY RF: 0 ibuprofen [Motrin IB] 200 MG tablet 400 mg PO PRN RF: 0 Discharge Instructions Instructions: Pulmonary Embolism (DC) Additional Instructions: Take Apixiban 10 mg (2 tablets), two times per day for 8 more doses, then decrease to 5 mg (1 tablet), two times per day. Follow up with your PCP as scheduled. You sutures can be removed in one week. You will need to follow up with Hematology. Follow up with pulmonology. Your back biopsy is pending, you will be notified when results are available. Take care! Activity:: Activity as Tolerated Equipment/Supplies:: No Equipment Needed Diet:: As Tolerated Discharge Orders Discharge Orders: Discharge Order (Routine); Ordered 04/03/19 Ordered By: Parris Ramey DS: Summary Status at Discharge Functional status at discharge: independent ambulation Overall status at discharge: patient is progressing back to baseline Mental Status: mental status grossly normal Speech and Movement: speech and movement normal Mood: congruent mood Affect: normal affect Exam Narrative Exam Narrative: General: Very pleasant 69-year-old man, appears stated age, sitting up in the chair in no acute distress. Alert and oriented, answers questions appropriately. HEENT: Normocephalic, atraumatic, EOMI, mucous membranes moist. Cardiovascular: Heart has regular rate and rhythm, no murmur appreciated. Non- tachycardic. Respiratory: Respirations appear even and unlabored, lung sounds clear throughout with slightly diminished bases. GI: Abdomen soft, nontender on palpation, nondistended. Back: Dressing mid-back, clean, dry and intact. Extremities: Discoloration of bilateral hands, poor perfusion, chronic. No significant edema to lower extremities. Psych Mental Status: mental status grossly normal Speech and Movement: speech and movement normal Mood: congruent mood Affect: normal affect DS: Data Vitals/I&O Vitals and I&O: Vital Signs Temperature 36.8 C 04/03/19 11:10 Temperature Source Tympanic 04/03/19 11:10 Pulse 74 04/03/19 11:10 Pulse Rhythm Regular 04/03/19 07:50 Pulse 91 H 03/29/19 21:16 Respiratory Rate 19 04/03/19 11:10 Respiratory Effort 04/03/19 08:09 Respiratory Depth Normal 04/03/19 08:09 Respiratory Pattern Normal 04/03/19 08:09 Blood Pressure 130/79 04/03/19 11:10 Blood Pressure Mean 84 03/29/19 21:16 Pulse Oximetry 91 L 04/03/19 11:10 Oxygen Delivery Method Nasal Cannula 04/03/19 11:10 Oxygen Flow Rate 2.5 04/03/19 11:10 Pain Level 5 04/03/19 13:14 Comment 04/01/19 04:15 Intake & Output 04/02/19 04/03/19 04/03/19 23:59 11:59 23:59 Intake Total 490 / 740 240 / 480 240 / 480 Balance 490 / 740 240 / 480 240 / 480 Weight 81.3 kg Intake: Oral 490 / 730 240 / 480 240 / 480 Other: Urine Color Yellow Urine Appearance Clear Comment per patient Per patient Stool Size Moderate Stool Characteristics Formed Voiding Methods Toilet Data Completed and Pending Completed studies during hospitalization [Text1]: 03/29/2019: EXAM: XR CHEST 2V PA LATERAL CLINICAL HISTORY: R chest pain TECHNIQUE: COMPARISON: XR CHEST 2V PA LATERAL from 08/24/2018 FINDINGS: The heart is not enlarged. There are areas of bibasilar atelectasis and small right pleural effusion as noted on CT. Severe emphysematous changes noted. Please see accompanying CT report. CT angiography showed multiple bilateral lower lobe pulmonary emboli. EXAM: CT CHEST PE ABD PELVIS W CLINICAL HISTORY: Hypoxia, right base diminished. TECHNIQUE: CT angiography of the chest, abdomen and pelvis was performed with a bolus infusion of 100 cc of Omnipaque 350. Axial CT angiography was performed with multi-slice acquisition and multi-planar and/or 3D reconstructions. COMPARISON: No exams were available for comparison FINDINGS: Thoracic aorta unremarkable in appearance with minimal wall calcifications. There are pulmonary emboli visible in segmental and subsegmental pulmonary day lauren in right and left lower lobe vessels. No central pulmonary embolus identified. There is a trace right pleural effusion. Cardiac size within normal limits and no evidence of right ventricular strain. There are severe pulmonary bullous emphysematous changes. There are presumed areas of bibasilar atelectasis. No focal consolidation. Scanning of the abdomen and pelvis shows unremarkable appearance the liver, spleen, and pancreas. Gallbladder and bile ducts are CT normal. Adrenals and kidneys unremarkable in appearance. No significant abdominal wall hernia seen. No abdominal or pelvic adenopathy. Appendix is normal. No evidence of diverticulitis or bowel obstruction. Abdominal aorta is of normal diameter. Mural thrombus identified in the distal aorta and proximal left common iliac artery, less than 50 percent luminal diameter stenosis. Celiac trunk, superior mesenteric artery, renal arteries, and inferior mesenteric artery are unremarkable in appearance. IMPRESSION: Multiple segmental and subsegmental pulmonary emboli identified in lower lobe pulmonary arterial vasculature bilaterally. No evidence of right heart strain. Severe bullous emphysema noted. 03/30/2019: EXAM: Comprehensive 2D, Doppler, and color-flow Echocardiogram Patient Location: In-Patient Ball Truing Machine Operator: Narcisa Luna RDCS (AE) Rhythm: NSR Indications: B/L PE Conclusion Left Ventricle : The left ventricle is normal size. Left ventricular systolic function is normal. Borderline left ventricular hypertrophy. There is normal LV segmental wall motion. There is grade 1 diastolic dysfunction. LVEF is estimated to be 65-70%. Right Ventricle : The right ventricle appears normal size. Right ventricle is mildly hypokinetic. Atria : The left atrium size is normal. The right atrium size is normal. Aortic Valve : Aortic valve is trileaflet. No significant aortic regurgitation is present. There is no aortic valvular stenosis. Mitral Valve : The mitral valve is normal in structure. Trace mitral regurgitation. No evidence of mitral valve stenosis. Tricuspid Valve : The tricuspid valve is normal in structure. Trivial tricuspid regurgitation. Great Vessels : The aortic root size is dilated (3.85cm). The ascending aorta size is normal. IVC is normal in size and collapses >50% with inspiration. Estimated RVSP is 44-47 mmHg. There is no clear evidence of RV strain on echocardiogram. There is no prior echocardiogram available for comparison. EXAM: US EXTREMITY VENOUS BI CLINICAL HISTORY: b/l PE TECHNIQUE: Ultrasound performed using standard protocol. COMPARISON: US ECHOCARDIOGRAM from 03/30/2019 FINDINGS: Duplex evaluation of the deep venous system of both lower extremities was performed according to the usual protocol. There is no evidence of deep venous thrombosis in the right lower extremity. On the left there is no evidence of DVT in the popliteal vein or proximally. However there is calf vein nonocclusive thrombus in posterior tibial veins and peroneal veins. No superficial thrombus identified in either lower extremity. IMPRESSION: Negative DVT ultrasound right lower extremity. DVT ultrasound of left lower extremity positive for deep calf vein thrombus, posterior tibial and peroneal veins. 03/31/2019: EXAM: XR PORTABLE CHEST AP INDICATION: fever, PE - concern for pneumonia. COMPARISON: XR CHEST 2V PA LATERAL from 08/24/2018 XR CHEST 2V PA LATERAL from 03/29/2019 CT CHEST PE ABD PELVIS W from 03/29/2019 TECHNIQUE: 2D digital imaging was performed. FINDINGS: Severe emphysematous changes are again noted. There are increased densities at the right lung base compared with the previous exam which could represent atelectasis versus pulmonary infarct or pneumonia. IMPRESSION: Increasing densities at the right lower lobe. [facility] Medical History Jensen's esophagus (Inactive) BPH without urinary obstruction (Inactive) COPD (chronic obstructive pulmonary disease) case management patient (Inactive) Hypertension (Chronic) Surgical History abdominal wall hernia repair 03/2004 Colonoscopy - MAC (~2006) 10/2010 Extraction of cataract Elida Fundoplication (~1997) Rotator Cuff Repair (~07/2010) right Family History Mother Heart disease COPD (chronic obstructive pulmonary disease) Father Diabetes Personal history of malignant neoplasm LUNG/BRAIN Sister Diabetes Heart disease Brother Diabetes Heart disease Grandfather Heart disease Grandfather No problems noted. Grandmother No problems noted. Grandmother No problems noted. Sister Heart disease Hyperlipidemia Brother No problems noted. Son Essential hypertension Son No problems noted. Daughter Neoplasm UTERINE Social History Smoking/Tobacco Use Status: Former Tobacco Use Quit Date: 03/31/96 Alcohol Intake: current Alcohol Intake frequency: a few times a month Drug use: Never Substance use type: does not use Do you feel safe at home: Yes Do you feel safe in your relationship?: Yes
--- NOTE | 2019-04-03 15:49 | PDOC.CMDIS ---
- If Service Date Differs Date of service: 04/03/19 Time of Service: 15:50 LACE Index Scoring Tool - Questions: Length of Stay (in days): 4 - 6 Acuity (Admit via E.D.?): Yes Comorbidities: Chronic Pulmonary Disease E.D. Visits: 3 - Answers: Total Score: 12 Risk of Readmission: High Risk Care Management Discharge Reason for Hospitalization: Bilateral PE's Discharge Plan: Darrell will be discharged home with new home oxygen through [facility]. He will folllow up with his PCP and discharge plan of care . He will transport via private vehicle with his . Patient/Family Education Needs: Discharge plan, limitations, follow up plan and Ask Me Three. Services Needed at Discharge: Oxygen Therapy
--- NOTE | 2019-04-06 08:56 | PT.INDS ---
Date of service: 04/06/19 Time of Service: 08:56 PT Notes Visit Reasons: BILATERAL PE Inpatient Physical Therapy Discharge Summary Dates: 04/06/2019 Dates of Service: 04/02/2019 through 04/03/2019 Referring Doctor: Crista Pendleton MD PT Orders: PT CONSULT: Limited ability Precautions: Standard. Activity as tolerated. Patient Profile/Admitting Diagnosis: Patient is a 69-year-old male who presented to the ED on 03/29/2019 with chief chief complaints of chest discomfort and shortness of breath. Patient is diagnosed with pulmonary embolism, emphysema of lung with associated hypoxia, right lower lobe atelectasis. He is also status post excision biopsy of skin lesion in upper back on 03/30/2019. PMHX: Medical History Jensen's esophagus (Inactive) BPH without urinary obstruction (Inactive) COPD (chronic obstructive pulmonary disease) case management patient (Inactive) Surgical History abdominal wall hernia repair 03/2004 Colonoscopy - MAC (~2006) 2007 10/2010 Extraction of cataract Elida Fundoplication (~1997) Rotator Cuff Repair (~07/2010) right Social History/Home Situation: Patient lives in a private home with 4 steps with both rails that lead onto a deck. 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 He is independent with all activities of daily living without the need for an assistive ambulatory device nor adaptive equipment. He hopes to return to work full-time when he is medically cleared to do so. Equipment Owned/DME: None. Subjective: NT Objective: General Observation: NT Mental Status: NT ROM: Right Upper Extremity: Shoulder Flexion WFL. Shoulder abduction WFL. Elbow flexion WFL. Wrist flexion WFL. Opening and closing of hand WFL. Left Upper Extremity: Shoulder Flexion WFL. Shoulder abduction WFL. Elbow flexion WFL. Wrist flexion WFL. Opening and closing of hand WFL. Right Lower Extremity: Hip flexion WFL. Hip abduction WFL. Knee flexion WFL. Ankle dorsiflexion WFL. Ankle plantarflexion WFL. Left Lower Extremity: Hip flexion WFL. Hip abduction WFL. Knee flexion WFL. Ankle dorsiflexion WFL. Ankle plantarflexion WFL. Strength: Right Upper Extremity: Shoulder flexors 5/5. Shoulder abductors 5/5. Elbow flexors 5/5. Elbow extensors 5/5. [employer]ure [employer] Analyst strong. Left Upper Extremity: Shoulder flexors 5/5. Shoulder abductors 5/5. Elbow flexors 5/5. Elbow extensors 5/5. [employer] Analyst strong. Right Lower Extremity: Hip flexors 5/5. Hip abductors 5/5. Knee flexors 5/5. Knee extensors 5/5. Ankle dorsiflexors 5/5. Ankle plantarflexors 5/5. Left Lower Extremity:Hip flexors 5/5. Hip abductors 5/5. Knee flexors 5/5. Knee extensors 5/5. Ankle dorsiflexors 5/5. Ankle plantarflexors 5/5. Sensation: Intact as to pain and pressure on bilateral lower extremities. Bed Mobility/Transfers: Sit to stand independent Stand to sit independent Bed to chair independent Chair to bed independent Gait: 300 feet without an assistive device with SBA with oxygen saturation of 89% to 92% No LOB. Gait pattern unremarkable. Balance: Static Sitting: Normal Dynamic Sitting: Normal Static Standing: Normal Dynamic Standing: Good Assessment: Patient is a 69-year-old male who presented to the ED on 03/29/2019 with chief chief complaints of chest discomfort and shortness of breath. Patient is diagnosed with pulmonary embolism, emphysema of lung with associated hypoxia, right lower lobe atelectasis. He is also status post excision biopsy of skin lesion in upper back on 03/30/2019. Patient was presents with impairment level findings and functional limitations as listed below. Impairments are contributing to the following functional limitations: 1. Increase completion time for mobility ADL performance 2. Inability to return to vocational activities safely Goals: Goals X1 week 1. Independent gait on level surface with use of least restrictive device for at least 1000 feet without report dyspnea with 2 L of oxygen per minute via NC NOT MET 2. Independent stair negotiation while holding onto bilateral rails for at least 5 steps without report of dyspnea without report dyspnea with 2 L of oxygen per minute via NC MET 3. Independent with home exercise program NOT MET 4. Normal static and dynamic standing balance/tolerance DISCHARGE RECOMMENDATIONS: Patient will benefit from outpatient pulmonary rehabilitation in order to facilitate return to vocational activities. TREATMENT CODE/TIME: NC. Thank you very much for this referral. Marleny Avalos PT, DPT, CLT [facility] [place], [place]
== END 2019-04-03 16:35 | disposition home or self-care (01) | DRG 176 ==
LOC: ER 22:22 → MS 22:24
PROVIDERS: Emergency Medicine; Internal Medicine; Admitting Provider Family Medicine; Emergency Provider Emergency Medicine; PCP Emergency Medicine; Visit Provider Internal Medicine
DX: I26.94 Multiple subsegmental thrombotic pulmonary emboli without acute cor pulmonale (principal); I82.452 Acute embolism and thrombosis of left peroneal vein; I82.432 Acute embolism and thrombosis of left popliteal vein; J98.11 Atelectasis; I82.812 Embolism and thrombosis of superficial veins of left lower extremity; I27.21 Secondary pulmonary arterial hypertension; R09.02 Hypoxemia; L82.1 Other seborrheic keratosis; J43.9 Emphysema, unspecified; I10 Essential (primary) hypertension; M54.2 Cervicalgia; Z87.891 Personal history of nicotine dependence; Z88.0 Allergy status to penicillin; Z23 Encounter for immunization
CPT/HCPCS: 36415; 71275; 74177; 80048; 80053; 82805; 93005; 94618; 94640; 96374; 96375; 96376; 97162; 97530; 99223; 99232; 99239; 99252; 99285; 36600; 71045; 71046; 83735; 83880; 84484; 85025; 85379; 85610; 85730; 88305; 93010; 93306; 93970; J2270; J2405; J3490

== ENCOUNTER 2019-04-17 02:32 | Outpatient (CLI) | payer OTHER, SELFPAY ==
--- NOTE | 2019-04-17 | PFT_ITS ---
PULMONARY FUNCTION TEST REPORT Patient - Darrell Rawls DATE OF SERVICE April 17, 2019 REQUESTING PROVIDER David Kingston D.O. INTERPRETATION OF STUDY Spirometry shows moderately severe obstructive airways disease with no significant bronchodilator response. LUNG VOLUMES - Lung volumes show no evidence of restriction. DIFFUSION CAPACITY- Severely reduced even when corrected to alveolar volume. AIRWAY RESISTANCE - Normal. IMPRESSION Moderately severe obstructive airways disease with no significant bronchodilator response. This is associated with severe diffusion defect. Clinical correlation recommended. Chen Wiley M.D. Giovani T- 04/18/19
== END 2019-04-17 02:52 ==
PROVIDERS: PCP Emergency Medicine; Visit Provider Emergency Medicine
DX: J98.8 Other specified respiratory disorders (principal); R09.02 Hypoxemia
CPT/HCPCS: 94060; 94150; 94726; 94729

== ENCOUNTER 2019-07-10 00:30 | Outpatient (CLI) | payer OTHER, SELFPAY ==
--- NOTE | 2019-07-10 | DI.US_ITS ---
APPROVED REPORT EXAM: Comprehensive 2D, Doppler, and color-flow Echocardiogram Patient Location: Out-Patient Airline Ticket Agent: Adrienne Garcia RDCS (AE) Indications: Pulmonary HTN Conclusion Left Ventricle : The left ventricle is normal size. The left ventricular systolic function is normal. There is normal left ventricular wall thickness. There is normal LV segmental wall motion. Diastoli c function is indeterminate. LVEF is 65-70%. Right Ventricle : The right ventricle is normal size. The right ventricular systolic function is norm al. Atria : The left atrium size is normal. The right atrium size is normal. Valves: There are no hemodynamically significant valvular lesions. Great Vessels : IVC is normal in size and collapses >50% with inspiration. The RVSP is 40-45 mmHg. Compared to echocardiogram dated 03/30/2019: There is no significant change. Wall motion Left Ventricle The left ventricle is normal size. The left ventricular systolic function is normal. There is normal left ventricular wall thickness. There is normal LV segmental wall motion. Diastolic function is inde terminate. There is no ventricular septal defect visualized. LVEF is 65-70%. Right Ventricle The right ventricle is normal size. The right ventricular systolic function is normal. Atria The left atrium size is normal. The right atrium size is normal. The interatrial septum is intact wit h no evidence for an atrial septal defect. Aortic Valve The aortic valve is normal in structure. Aortic valve is trileaflet. There is no aortic valvular sten osis. Trace aortic regurgitation. Mitral Valve The mitral valve is normal in structure. There is mitral annular calcification. No evidence of mitral valve stenosis. Trace mitral regurgitation. Tricuspid Valve The tricuspid valve is normal in structure. There is no tricuspid valve stenosis. Trace tricuspid reg urgitation. Pulmonic Valve The pulmonary valve is normal in structure. There is no pulmonic valvular stenosis. Trace pulmonic re gurgitation. Great Vessels The aortic root is normal in size. Aortic arch is not well visualized. IVC is normal in size and renan apses >50% with inspiration. The RVSP is 40-45 mmHg. Pericardium There is no pericardial effusion. 2D Dimensions IVSD d PLAX 0.95 cm M: 0.6-1.2 LV Vol A2C d MOD 89.1 mL LVPW d PLAX 0.91 cm M: 0.6 - 1.2 LV Vol A4C d MOD 68.3 mL LVID d PLAX 4.48 cm M: 4.2 - 5.8 LA vol/ BSA A2C s A-L 35.0 mL/m2 LVDs 3.00 cm M: 2.5 - 4.0 LA vol/ BSA A4C s A-L 30.6 mL/m2 Ao Root d 3.49 cm M: 3.1 - 3.7 LA Vol/ BSA Biplane s A-L 32.8 mL/m2 RA Area A4C 16.84 cm2 LA Area A4C s MOD 21.15 cm2 RA Vol/ BSA A4C s A-L 22.3 mL/m2 LA Area A2C s MOD 22.52 cm2 Ao Asc Diam d 3.65 cm M: 2.6 - 3.4 LV EF A4C MOD 68.9 % LV EF Teichholz 61.6 % LV EF A2C MOD 69.0 % LVEF (Hernandez's) 66.45 % M: 52 - 72 LV EF Biplane MOD 66.4 % LV Volume 59.60 mL M: 62 - 150 LV Volume Index 30.56 mL/m2 M: 34 - 74 LV Vol Biplane MOD 78.9 mL FS 32.90 % LV Diastology MV E' medial 0.046 (>0.07 m/s) E/A Ratio 0.7 LV E/e MED 11.70 (<14) MV E Vmax 0.54 (0.4-1.3 m/s) MV E' lateral 0.074 (>0.1 m/s) MV A Vmax 0.80 (0.4-1.3 m/s) LV E/e LAT 7.20 (<14) MV E/A Ratio 0.65 MV E/E' medial 11.70 MV E/E' lateral 7.24 Aortic Valve LVOT Area 2.74 cm2 AoV Area Vmax 2.31 cm2 LVOT Vmax 1.02 m/s AoV Area/ BSA (Vmax) 1.18 cm2/m2 LVOT Mean Herb. 0.68 m/s DUGLAS Mean Herb. 2.22 cm2 LVOT Peak Grad 4.2 mmHg DUGLAS Mean Herb. Index 1.13 cm2/m2 LVOT Mean Grad 2.2 mmHg AR DT 1605 msec LVOT VTI 0.257 m AR PHT 466 msec LVOT Diam s 1.85 cm (M/F) 1.5-2.5 AoV Vmax 1.21 (0.5-1.3 m/s) Velocity Ratio 0.84 AoV Mean Herb. 0.84 m/s AoV Peak Grad 5.9 mmHg LVOT SV 70.46 mL AoV Mean Grad 3.2 (<5 mmHg) AoV VTI 0.266 (0.18-0.25 m) AoV Area VTI 2.65 (2.5-4.5 cm2) AoV Area/ BSA (VTI) 1.36 cm/m2 Mitral Valve MV DT 326 (160-240 msec) MV PHT 95 msec MV Area PHT 2.33 cm2 Pulmonary Valve PV Vmax 0.54 (0.5-1.5 m/s) RVOT Peak Gr. 0.55 mmHg PV Peak Grad 1.2 mmHg RVOT Mean Gr. 0.30 mmHg PV Mean Grad 0.7 mmHg RVOT VTI 0.105 m PV VTI 0.133 m RVOT Vmax 0.37 m/s Tricuspid Valve TR Peak Grad 40.3 mmHg TR Vmax 3.18 m/s RA Pressure 3.00 mmHg RVSP (TR) 43.4 mmHg
== END 2019-07-10 00:50 ==
PROVIDERS: PCP Emergency Medicine; Visit Provider Internal Medicine
DX: I27.20 Pulmonary hypertension, unspecified (principal); I26.99 Other pulmonary embolism without acute cor pulmonale
CPT/HCPCS: 93306

== ENCOUNTER 2019-08-23 03:36 | Outpatient (CLI) | payer OTHER, SELFPAY ==
[2019-08-23 09:11] LABS: CREATININE 1.28 mg/dL (0.70-1.30); Estimated GFR 55.72 (mL/min/1.73m2)
== END 2019-08-23 03:56 ==
PROVIDERS: PCP Emergency Medicine; Visit Provider Internal Medicine
DX: I26.99 Other pulmonary embolism without acute cor pulmonale (principal)
CPT/HCPCS: 36415; 82565

== ENCOUNTER 2019-08-24 02:21 | Outpatient (CLI) | payer OTHER, SELFPAY ==
[2019-08-24] MEDS: Normal Saline - Diluent 50 ML VIAL IV (09:50)
--- NOTE | 2019-08-24 09:50 | DI.CT_ITS ---
EXAM: CT CHEST PE CTA CLINICAL HISTORY: PULMONARY EMBOLISM,I26.99. TECHNIQUE: Imaging Protocol: Axial CT angiography was performed with multi-slice acquisition and mu lti-planar and/or 3D reconstructions. CONTRAST MATERIAL: Intravenous: Omnipaque 350 Contrast volume:75 ml COMPARISON: CT CT CHEST PE ABD PELVIS W from 03/29/2019 FINDINGS: Pulmonary Arteries: No evidence of filling defect to suggest pulmonary emboli. Previously noted bilat eral lower lobe emboli are no longer seen. No new emboli are identified. Tracheobronchial tree: Patent where visualized. Mediastinum and Rocio: No dominant adenopathy or fluid collection. Pulmonary parenchyma: No consolidation or dominant measurable mass. . There are severe underlying emp hysematous changes greater at the apices. Fibrotic changes are noted greater at the bases. Pleura: No effusion or pneumothorax. Previously noted small right pleural effusion and right lower lo be densities have resolved. Heart: Mild left atrial enlargement. Mild coronary artery calcifications are seen. Aorta: Thoracic aorta non-dilated. Mild calcification Upper abdomen: Unremarkable. Surgical clips near the GE junction. No hiatal hernia.. Bones: Degenerative disc changes.. IMPRESSION: Resolution bilateral lower lobe pulmonary emboli. Severe emphysematous changes. No acute abnormalit ies are identified.. RADIATION DOSE DELIVERED: 352.81mGy.cm Total DLP DATA REPOSITORY: All CT scans at this facility are submitted to the National Radiology Data Registry (NRDR) Dose Index Registry (DIR) with the [employer] (ACR). RADIATION OPTIMIZATION: All CT scans at this facility use at least one of these dose optimization te chniques: automated exposure control; mA and/or kV adjustment per patient size (includes targeted exa ms where dose is matched to clinical indication); or iterative reconstruction.
[2019-08-24] MEDS: Omnipaque 350 MG/ML 100 ML BTL IJ (09:51)
== END 2019-08-24 02:41 ==
PROVIDERS: PCP Emergency Medicine; Visit Provider Internal Medicine
DX: I26.99 Other pulmonary embolism without acute cor pulmonale (principal); J43.8 Other emphysema
CPT/HCPCS: 71275; J3490

== ENCOUNTER 2019-09-21 09:11 | Outpatient (CLI) | payer OTHER, SELFPAY ==
[2019-09-21 11:41] VITALS: PULSE 72; PULSE 78; PULSE 85; RESP 12; RESP 16; RESP 20; O2SAT 87; O2SAT 88; O2SAT 92; O2SAT 94
== END 2019-09-21 09:31 ==
PROVIDERS: PCP Emergency Medicine; Visit Provider Emergency Medicine
DX: J44.9 Chronic obstructive pulmonary disease, unspecified (principal)
CPT/HCPCS: 94618

== ENCOUNTER 2021-04-02 04:27 | Outpatient (CLI) | payer OTHER, SELFPAY ==
[2021-04-02] MEDS: Inhaler, Assist Device 1 EACH MC (09:03)
[2021-04-02] MEDS: Albuterol HFA 18 GM 200 PUFF INH IH (09:03)
--- NOTE | 2021-04-03 12:36 | W.PFT ---
Date of service: 04/02/21 Time of Service: 08:00 Pulmonary Function Test Result Requesting Provider David Kingston Indications: SAHU Interpretation Spirometry: There is moderate sirflow limitation. There is no significant bronchodilator response. Lung Volumes: Lung volumes are normal. Diffusion Capacity: The diffusion is reduced. Airway Pressure: Airways resistance is normal. Impression Moderate airflow obstruction with a reduced diffusion. This could represent COPD with emphysema in the correct clinical context. Note: Compared to 04/17/19 the FEV1 and FVC have improved, however the diffusion has decreased. Clinical Correlation therefore is recommended.
== END 2021-04-02 04:28 | disposition home or self-care (01) ==
PROVIDERS: PCP Emergency Medicine; Visit Provider Emergency Medicine
DX: R06.09 Other forms of dyspnea (principal); R94.2 Abnormal results of pulmonary function studies; I27.89 Other specified pulmonary heart diseases; J43.9 Emphysema, unspecified; Z86.711 Personal history of pulmonary embolism; Z87.891 Personal history of nicotine dependence
CPT/HCPCS: 94060; 94726; 94729

== ENCOUNTER 2021-04-09 08:43 | Outpatient (CLI) | payer OTHER, SELFPAY | END 2021-04-09 08:44 | disposition home or self-care (01) | LOC: RT 08:44 | PROVIDERS: PCP Emergency Medicine; Visit Provider Student in an Organized Health Care Education/Training Program | DX: J43.9 Emphysema, unspecified (principal); I27.20 Pulmonary hypertension, unspecified | CPT/HCPCS: 94618 ==

== ENCOUNTER → 2021-09-03 01:38 | Outpatient (CLI) | payer OTHER, SELFPAY ==
--- NOTE | 2021-09-03 07:00 | DI.US_ITS ---
APPROVED REPORT EXAM: Comprehensive 2D, Doppler, and color-flow Echocardiogram Patient Location: Out-Patient Field Crew Chief: Adrienne Garcia RDCS (AE) Indications: Reassess pulmonary arterial pressures, pulmonary HTN Other Information Study Quality: Good Conclusion Normal left ventricular wall thickness and chamber size. Estimated ejection fraction is 60 to 65%. Wall motion is normal Right ventricle is normal in size and systolic function Both atria are normal in size The aortic valve is trileaflet with trace regurgitation Mildly thickened mitral leaflets. There is trace mitral regurgitation Normal tricuspid valve with trace to mild regurgitation. Estimated right ventricular systolic pressu re is 45 mmHg Mildly dilated ascending aorta measuring 3.68 cm Wall motion Left Ventricle The left ventricle is normal size. The left ventricular systolic function is normal. The left ventric ular ejection fraction is within the normal range. There is normal left ventricular wall thickness. T here is normal LV segmental wall motion. There is no ventricular septal defect visualized. LVEF is 60 -65%. Right Ventricle The right ventricle is normal size. The right ventricular systolic function is normal. The RVSP is 45 .3mmHg. Atria The left atrium size is normal. The right atrium size is normal. The interatrial septum is intact wit h no evidence for an atrial septal defect. Aortic Valve The aortic valve is normal in structure. Aortic valve is trileaflet. There is no aortic valvular sten osis. Trace aortic regurgitation is present. Mitral Valve Mitral valve leaflets are mildly thickened. No evidence of mitral valve stenosis. Trace mitral regurg itation. Tricuspid Valve The tricuspid valve is normal in structure. There is no tricuspid valve stenosis. Trace to mild tricu spid regurgitation. Pulmonic Valve The pulmonary valve is normal in structure. There is no pulmonic valvular stenosis. There is no pulmo peañ valvular regurgitation. Great Vessels The aortic root is normal in size. The ascending aorta is mildly dilated. Aortic arch is not well vis ualized. IVC is normal in size and collapses >50% with inspiration. Pericardium There is no pericardial effusion. 2D Dimensions IVSD d PLAX 0.99 cm M: 0.6-1.2 LV Vol A2C d MOD 84.1 mL LVPW d PLAX 0.98 cm M: 0.6 - 1.2 LV Vol A4C d MOD 86.2 mL LVID d PLAX 4.40 cm M: 4.2 - 5.8 LA vol/ BSA A2C s A-L 21.2 mL/m2 LVDs 2.75 cm M: 2.5 - 4.0 LA vol/ BSA A4C s A-L 19.9 mL/m2 Ao Root d 3.64 cm M: 3.1 - 3.7 LA Vol/ BSA Biplane s A-L 20.8 mL/m2 RA Area A4C 11.10 cm2 LA Area A4C s MOD 15.18 cm2 RA Vol/ BSA A4C s A-L 12.5 mL/m2 LA Area A2C s MOD 15.46 cm2 Ao Asc Diam d 3.68 cm M: 2.6 - 3.4 LV EF A4C MOD 62.1 % LV EF Teichholz 67.5 % LV EF A2C MOD 64.3 % LVEF (Hernandez's) 62.84 % M: 52 - 72 LV EF Biplane MOD 62.8 % LV Volume 65.42 mL M: 62 - 150 SV 53.91 mL LV Volume Index 34.43 mL/m2 M: 34 - 74 SV Index 28.32 mL/m2 LV Vol Biplane MOD 85.8 mL FS 37.30 % M-Mode TAPSE 1.44 cm (M/F) >1.7 LV Diastology MV E' medial 0.069 (>0.07 m/s) E/A Ratio 0.7 LV E/e MED 8.15 (<14) MV E Vmax 0.57 (0.4-1.3 m/s) MV E' lateral 0.089 (>0.1 m/s) MV A Vmax 0.85 (0.4-1.3 m/s) LV E/e LAT 6.35 (<14) MV E/A Ratio 0.64 MV E/E' medial 8.17 MV E/E' lateral 6.37 Aortic Valve LVOT Area 3.97 cm2 AoV Area Vmax 3.33 cm2 LVOT Vmax 1.10 m/s AoV Area/ BSA (Vmax) 1.75 cm2/m2 LVOT Mean Herb. 0.82 m/s DUGLAS Mean Herb. 3.51 cm2 LVOT Peak Grad 4.8 mmHg DUGLAS Mean Herb. Index 1.85 cm2/m2 LVOT Mean Grad 3.0 mmHg LVOT VTI 0.224 m LVOT Diam s 2.20 cm AoV Vmax 1.31 m/s Velocity Ratio 0.83 AoV Mean Herb. 0.93 m/s AoV Peak Grad 6.9 mmHg LVOT SV 89.03 mL AoV Mean Grad 3.9 mmHg AoV VTI 0.227 m AoV Area VTI 3.93 cm2 AoV Area/ BSA (VTI) 2.06 cm/m2 Mitral Valve MV DT 327 (160-240 msec) MV PHT 95 msec MV Area PHT 2.32 cm2 MV VTI 0.187 m MV Area VTI 4.76 (4.0-6.0 cm2) Pulmonary Valve PV Vmax 0.82 (0.5-1.5 m/s) RVOT Peak Gr. 1.25 mmHg PV Peak Grad 2.7 mmHg RVOT Mean Gr. 0.85 mmHg PV Mean Grad 1.7 mmHg RVOT VTI 0.098 m PV VTI 0.148 m RVOT Vmax 0.56 m/s Tricuspid Valve TR Peak Grad 42.1 mmHg TR Vmax 3.24 m/s RA Pressure 3.00 mmHg RVSP (TR) 45.3 mmHg
== END ==
PROVIDERS: PCP Family Medicine; Visit Provider Student in an Organized Health Care Education/Training Program
DX: I27.20 Pulmonary hypertension, unspecified (principal)
CPT/HCPCS: 93306

== ENCOUNTER 2021-09-24 02:30 | Outpatient (CLI) | payer OTHER, SELFPAY ==
[2021-09-24 07:59] LABS: ALT 20 U/L (16-63); AST 20 U/L (15-37); Albumin 3.5 g/dL (3.4-5.0); Alkaline Phosphatase 67 U/L (46-116); Anion Gap 3.5 mmol/L (3-11); BUN 22 mg/dL (7-18); Bilirubin, Total 0.6 mg/dL (0.2-1.0); CO2 33.5 mmol/L (21.0-32.0); CREATININE 1.1 mg/dL (0.70-1.30); Calcium 9.1 mg/dL (8.5-10.1); Calculated LDL 121 mg/dL (<100); Chloride 99 mmol/L (98-107); Cholesterol 198 mg/dL (<200); Glucose 94 mg/dL (74-106); HDL Cholesterol 64 mg/dL (40-60); Potassium 4.3 mmol/L (3.5-5.1); Sodium 136 mmol/L (136-145); Total Protein 7.7 g/dL (6.4-8.2); Triglyceride 68 mg/dL (<150)
[2021-09-24 19:49] LABS: PSA, Screening 0.6 ng/mL (<=6.5)
== END 2021-09-24 02:31 | disposition home or self-care (01) ==
PROVIDERS: PCP Nurse Practitioner Family; Visit Provider Family Medicine
DX: I10 Essential (primary) hypertension (principal); Z13.6 Encounter for screening for cardiovascular disorders; Z12.5 Encounter for screening for malignant neoplasm of prostate
CPT/HCPCS: 36415; 80053; 80061; 84153

== ENCOUNTER 2022-03-16 06:23 | Emergency (ER) | payer OTHER, SELFPAY ==
[2022-03-16 06:31] VITALS: BP 145/86; PULSE 72; RESP 16; TEMP 36.8; O2SAT 88
--- NOTE | 2022-03-16 06:47 | W.ED.GENAD ---
Discharge Plan Disposition Patient Disposition: Home Condition: Improving Discharge Details Clinical Impression: Cerumen impaction Primary Care Provider: Keena Alejo ED Provider: Andrea Miller Home Meds and New Rx's Prescriptions: New ofloxacin 0.3 % drops 10 drp otic (ear) DAILY 7 Days Qty: 5 0RF No Action albuterol sulfate 90 mcg/actuation HFA aerosol inhaler 2 puff inhalation Q4H PRN (Reason: shortness of breath or wheezing) Qty: 8.5 12RF amlodipine 5 mg tablet 5 mg PO DAILY Qty: 90 3RF Stiolto Respimat 2.5-2.5 mcg/actuation mist 2 puff IH DAILY Qty: 4 12RF Eliquis 2.5 mg tablet 2.5 mg PO BID Qty: 180 3RF Discharge Instructions Additional Instructions: Please follow-up with your automated process operator. Use hydrogen peroxide soaks over the next couple of days to help loosen up the earwax. Use antibiotic drops as prescribed. Medical Decision Making 71-year-old male presents with 1 to 2 weeks of right ear pain, large amount of cerumen impaction right external canal, cerumen disimpaction performed with loop curette; patient noted to have hypoxia to 88% on room air, patient Dors that this is his chronic O2 sat, has a history of COPD, no home O2 use. No respiratory distress speaking full sentences. Home care instructions and return precautions given. Given appearance of canal will also place patient on ofloxacin eardrops. Counseled to use peroxide at home. Patient to follow-up with his primary automated process operator HPI General Date/Time Provider Initiated Documentation: 03/16/22 06:36. HPI Narrative: 71-year-old male presents with 1 to 2 weeks of right ear discomfort. Related Data Home Medications Medication Instructions Recorded Confirmed albuterol sulfate 90 mcg/actuation 2 puff inhalation Q4H PRN 04/06/21 01/05/22 aerosol inhaler shortness of breath or wheezing #8.5 grams amlodipine 5 mg tablet 5 mg PO DAILY #90 tabs 08/25/21 01/05/22 tiotropium 2.5 mcg-olodaterol 2.5 2 puff inhalation DAILY #4 grams 12/21/21 01/05/22 mcg/actuation mist for inhalation (Stiolto Respimat) apixaban 2.5 mg tablet (Eliquis) 2.5 mg PO BID #180 tabs 12/22/21 01/05/22 ofloxacin 0.3 % ear drops 10 drp otic (ear) DAILY 7 days #5 03/16/22 mL Previous Rx's Medication Instructions Recorded albuterol sulfate 90 mcg/actuation 2 puff inhalation Q4H PRN 04/06/21 aerosol inhaler shortness of breath or wheezing #8.5 grams amlodipine 5 mg tablet 5 mg PO DAILY #90 tabs 08/25/21 tiotropium 2.5 mcg-olodaterol 2.5 2 puff inhalation DAILY #4 grams 12/21/21 mcg/actuation mist for inhalation (Stiolto Respimat) apixaban 2.5 mg tablet (Eliquis) 2.5 mg PO BID #180 tabs 12/22/21 ofloxacin 0.3 % ear drops 10 drp otic (ear) DAILY 7 days #5 03/16/22 mL Allergies Allergy/AdvReac Type Severity Reaction Status Date / Time Penicillins Allergy Unknown Verified 01/05/22 09:59 General Stated Complaint: EarProblem HE: 4 Review of Systems Narrative: Review of Systems Constitutional: negative Eyes: negative ENT: Ear pain Cardiovascular: negative Respiratory: negative Gastrointestinal: negative : negative Musculoskeletal: negative Skin: negative Neurologic: negative Psych: negative PFSH All Active Problems (Updated 03/16/22 @ 06:51 by Andrea Miller MD) Cerumen impaction (Acute) Respiratory failure with hypoxia (Acute) 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, O2 dependent Pulmonary hypertension (Acute) Non-sustained ventricular tachycardia (Acute) Hypertension (Chronic) Pulmonary embolism (Chronic) 2020-on Eliquis long-term Polyp of colon (Chronic 02/24/06) 2006; tubular adenoma normal colonoscopy 2010 Intra-abdominal hernia (Chronic 02/24/02) abdominal hernia-repair 03/2004--recurred 06/30--repaired 2005 (Juan) Anxiety (Chronic) Medical History Jensen's esophagus BPH without urinary obstruction COPD (chronic obstructive pulmonary disease) case management patient Smoker quit Surgical History abdominal wall hernia repair 03/2004 2006 Colonoscopy - MAC (~2006) 10/2010 Extraction of cataract Elida Fundoplication (~1997) Rotator Cuff Repair (~07/2010) right Family History Mother Heart disease COPD (chronic obstructive pulmonary disease) Father Diabetes Personal history of malignant neoplasm LUNG/BRAIN Sister Diabetes Heart disease Brother Diabetes Heart disease Grandfather Heart disease Grandfather No problems noted. Grandmother No problems noted. Grandmother No problems noted. Sister Heart disease Hyperlipidemia Brother No problems noted. Son Essential hypertension Son No problems noted. 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 Pets and animals: Yes Pets and animals: dog(s) Sexually active: Yes Do you think of yourself as: straight/heterosexual Current gender identity: male What is your relationship status?: How often do you talk on the phone with friends or family?: decline to answer How often do you get together with friends or relatives?: decline to answer How often do you attend taoism or anabaptist services?: decline to answer Do you belong to any clubs or organized social groups?: yes Panel score (0-1 are the most socially isolated patients): 2 What type of physical activity do you participate in: walking Duration: > 90 minutes/day Frequency: daily Rosie/Episcopalian: Anabaptist Special rosie needs: No Do you feel safe at home: Yes Do you feel safe in your relationship?: Yes Additional Social history: Previously enjoyed bicycling. Exam Narrative Exam Narrative: Physical Examination General: alert, awake, cooperative, resting comfortably, no acute distress HEENT: normocephalic, atraumatic; PERRL, EOM intact, conjunctiva normal; no nasal discharge; moist mucous membranes, oral and pharyngeal mucosa normal, tolerating secretions; large amount of cerumen impaction right TM Neck: supple, trachea midline; full ROM Resp: No respiratory distress, speaking full sentences no tachypnea Skin: no lesions, rashes or trauma appreciated Neuro: AAOx3, normal speech, moving all extremities Psych: Appropriate mood and affect Course Vital Signs Vital signs: Vital Signs Temperature 36.8 C 03/16/22 06:31 Pulse 72 03/16/22 06:31 Respiratory Rate 16 03/16/22 06:31 Blood Pressure 145/86 H 03/16/22 06:31 Pulse Oximetry 88 L 03/16/22 06:31 Temperature 36.8 C 03/16/22 06:31 Temperature Source Oral 03/16/22 06:31 Pulse 72 03/16/22 06:31 Respiratory Rate 16 03/16/22 06:31 Respiratory Effort 03/16/22 06:35 Blood Pressure 145/86 H 03/16/22 06:31 Pulse Oximetry 88 L 03/16/22 06:31 Oxygen Delivery Method Room Air 03/16/22 06:31 Oxygen Flow Rate 0 03/16/22 06:31 Pain Level 0 03/16/22 06:35 Comment 03/16/22 06:31
[2022-03-16 07:16] VITALS: BP 125/80; PULSE 90; RESP 18; O2SAT 87
== END 2022-03-16 07:19 | disposition home or self-care (01) ==
PROVIDERS: Emergency Provider Emergency Medicine; PCP Nurse Practitioner Family
DX: H61.21 Impacted cerumen, right ear (principal)
CPT/HCPCS: 99283

== ENCOUNTER 2022-03-31 16:44 | Emergency (ER) | payer OTHER, SELFPAY ==
[2022-03-31 17:03] VITALS: BP 136/84; PULSE 101; RESP 20; TEMP 37.6
--- NOTE | 2022-03-31 18:00 | DI.CT_ITS ---
Exam(s) CT HEAD CERVICAL SPINE WO EXAM: CT HEAD CERVICAL SPINE WO CLINICAL HISTORY: HI on eliquis. TECHNIQUE: Imaging Protocol: Axial computed tomography images with coronal and sagittal reformatted images were created and reviewed COMPARISON: No exams were available for comparison FINDINGS: BRAIN: There are no skull fractures nor fluid in the visualized paranasal sinuses. There is no evidence of intracranial hemorrhage, mass effect, or shift of midline structures. There are no extra-axial fluid collections. The ventricles are not enlarged or shifted and there is no blo od within the ventricular system nor within the basal cisterns. CERVICAL SPINE: There is no evidence of fracture nor listhesis. No significant prevertebral soft tissue swelling. There is multilevel disc space narrowing. Multilevel facet arthropathy. There is no significant facet joint malalignment. No significant osseous lesions evident. IMPRESSION: No acute intracranial findings on this noninfused CT scan of the brain. No evidence of cervical spine fracture, malalignment, nor acute compromise of the cervical spinal can al. Multilevel degenerative changes. RADIATION DOSE DELIVERED: 1,217.97mGy.cm Total DLP DATA REPOSITORY: All CT scans at this facility are submitted to the National Radiology Data Registry (NRDR) Dose Index Registry (DIR) with the [employer] (ACR). RADIATION OPTIMIZATION: All CT scans at this facility use at least one of these dose optimization te chniques: automated exposure control; mA and/or kV adjustment per patient size (includes targeted exa ms where dose is matched to clinical indication); or iterative reconstruction.
--- NOTE | 2022-03-31 18:14 | DI.CT_ITS ---
Exam(s) CT CHEST/ABD/PEL W EXAM: CT CHEST/ABD/PEL W CLINICAL HISTORY: left flank and upper quad pain post fall on eliqis. TECHNIQUE: Imaging Protocol: Axial computed tomography images with coronal and sagittal reformatted images were created and reviewed CONTRAST MATERIAL: Intravenous: Omnipaque 350 Contrast volume:100 ml Oral: None COMPARISON: CT CT CHEST PE ABD PELVIS W from 03/29/[address] CHEST PE CTA from 08/24/2019 FINDINGS: CHEST: LUNGS: Severe emphysematous changes throughout both lung cade. No confluent infiltrates nor pleura l effusions. No lung contusion. No pneumothorax. No ominous pulmonary nodules... MEDIASTINUM: No evidence of sternal fracture nor mediastinal hematoma. No hilar nor mediastinal gudelia opathy. Visualized thyroid unremarkable. CARDIAC: Heart size is normal. There is no pericardial effusion.Caliber of the thoracic aorta is wit hin normal limits. No dissection. OSSEOUS: There is a fracture deformity of the medial left clavicle. There are adjacent fractures of the posterior aspects of the left 11th and 12th ribs, both mildly displaced. No obvious right rib fr actures. There are no vertebral compression fractures. ABDOMEN: There is no ascites. No evidence of bowel wall nor mesenteric hematoma. Benign-appearing deep subcu taneous calcification noted over the right anterior abdominal wall adjacent to a defect in the adjace nt musculature where there is a small hernia sac. This probably calcified lymph node in the deep sub cutaneous tissue, measuring 7 x 7 millimeters. This finding is unchanged from prior CT scan of 2019. LIVER: No evidence of a patent laceration. No focal hepatic lesions. No dilated intrahepatic ducts. S urgical clips are noted in the medial aspect of the liver region as well as in the gastrohepatic liga ment region. No mass evident at this location. No abnormal fluid collection. GALLBLADDER/BILIARY: No obvious acute gallbladder pathology. CBD is not dilated. PANCREAS: No evidence of pancreatic mass nor dilatation of the pancreatic duct. SPLEEN: No splenic laceration. Spleen size is normal. Splenic and portal veins are patent. ADRENALS: There are no significant adrenal masses. KIDNEYS: No evidence of renal laceration or subcapsular hematoma. No significant focal findings in ei ther kidney.. No cysts evident. ABDOMINAL AORTA: Abdominal aorta is atherosclerotic distally with lack of normal tapering and indeed there is a significant aneurysm of the distal most abdominal aorta starting below the takeoff point o f the inferior mesenteric artery and with arterial megaly extending into the left common iliac artery . Maximum diameter of the lower abdominal aortic aneurysm is 3 cm. Maximum diameter of the left commo n iliac artery aneurysm is 2.2 cm. There appears to be occlusion of the left internal iliac artery at its origin. The opposite-right internal iliac artery is patent. Both external iliac arteries are pat ent with upper normal diameters. There are no aneurysms nor significant atherosclerotic narrowing of the bilateral common femoral arteries. LYMPH NODES: There is no retroperitoneal nor paraaortic adenopathy. ABDOMINAL WALL: There is evidence of anterior abdominal wall hernia repair mesh. GI: There is no evidence of bowel obstruction.No free air. No abscess. PELVIS: LYMPH NODES: There is no intrapelvic nor inguinal adenopathy. GI: No evidence of appendicitis.Extensive sigmoid diverticulosis. There also diverticuli in the desce nding left colon. Cannot exclude subtle diverticulitis in the sigmoid. URINARY BLADDER: There is a small right-sided Hutch diverticulum which measure 1.5 x 1.5 cm. REPRODUCTIVE: Prostate size upper normal. Seminal vesicles unremarkable. OSSEOUS: No significant osseous lesions. No additional fractures. Left 11th and 12th rib fractures as described above. IMPRESSION: 1. There are mildly displaced acute fractures of the left 11th and 12th ribs. No pneumothorax. Severe COPD emphysematous changes both lung cade. No pleural effusions. 2. There is a lower abdominal aortic aneurysm with maximum diameter of 3 cm and there is arterial zachary ольга with aneurysm dilatation of the left common iliac artery exhibiting max diameter 2.2 cm. There is occlusion of the ipsilateral left internal iliac artery at its origin. 3. Extensive sigmoid diverticulosis. Cannot exclude subtle diverticulitis given the extensive involve ment of the sigmoid. There is no free fluid. No abscess. 4. Evidence of previous anterior abdominal hernia repair. 5. No evidence of acute significant trauma sequelae in the abdomen and pelvis. No vertebral body frac tures nor pelvic bone fractures. There are only visible fractures are the 11th and 12th left ribs. RADIATION DOSE DELIVERED: 949.9mGy.cm Total DLP DATA REPOSITORY: All CT scans at this facility are submitted to the National Radiology Data Registry (NRDR) Dose Index Registry (DIR) with the [employer] (ACR). RADIATION OPTIMIZATION: All CT scans at this facility use at least one of these dose optimization te chniques: automated exposure control; mA and/or kV adjustment per patient size (includes targeted exa ms where dose is matched to clinical indication); or iterative reconstruction.
[2022-03-31 18:44] LABS: Abs Immature Grans 0.05 10^3/uL (0.0-0.06); Absolute Basophil Count 0.04 10^3/uL (0.0-0.2); Absolute Eosinophil Count 0.09 10^3/uL (0.0-0.7); Absolute Lymphocyte Count 0.92 10^3/uL (1.2-3.4); Absolute Monocyte Count 0.87 10^3/uL (0.1-0.8); Absolute Neutrophil Count 5.82 10^3/uL (1.2-6.7); Basophils % 0.5; Eosinophils % 1.2; Immature Grans % 0.6; Lymphocytes % 11.8; MCH 31.2 pg (27.0-33.0); MCHC 32.8 % (32.0-36.0); MCV 95 fL (80-95); MPV 10.4 fL (8.0-11.0); Monocytes % 11.2; Neutrophils % 74.7; Platelet Count 233 10^3/uL (130-400); RBC 6.77 10^6/uL (4.36-5.78); RDW 16.7 % (11.8-14.1); RDW-SD 54.4 fL; WBC 7.79 10^3/uL (4.4-10.8)
[2022-03-31 19:00] LABS: ALT 20 U/L (16-63); AST 23 U/L (15-37); Albumin 3.6 g/dL (3.4-5.0); Alkaline Phosphatase 81 U/L (46-116); Anion Gap 5.7 mmol/L (3-11); BUN 18 mg/dL (7-18); Bilirubin, Total 0.6 mg/dL (0.2-1.0); CO2 31.3 mmol/L (21.0-32.0); CREATININE 1.2 mg/dL (0.70-1.30); Calcium 9.2 mg/dL (8.5-10.1); Chloride 106 mmol/L (98-107); Estimated GFR 64.25 (mL/min/1.73m2); Glucose 126 mg/dL (74-106); Lipase 44 U/L (73-393); Potassium 4.1 mmol/L (3.5-5.1); Sodium 143 mmol/L (136-145)
[2022-03-31 19:12] LABS: HCT 64.3 % (40.0-50.0); HGB 21.1 g/dL (13.5-17.5)
[2022-03-31] MEDS: Omnipaque 350 MG/ML 100 ML BTL IJ (19:40)
[2022-03-31] MEDS: Normal Saline Flush 10 ML SYR IVP (19:41)
[2022-03-31] MEDS: Normal Saline - Diluent 50 ML VIAL IJ (19:41)
--- NOTE | 2022-03-31 19:51 | DI.VRAD_ITS ---
PROCEDURE INFORMATION: Exam: CT Head Without Contrast Exam date and time: 03/31/2022 7:38 PM Age: 72 years old Clinical indication: Other: Head injury on eliquis TECHNIQUE: Imaging protocol: Computed tomography of the head without contrast. COMPARISON: No relevant prior studies available. FINDINGS: Brain: Mild volume loss No hemorrhage. Mild white matter disease. No mass effect. Cerebral ventricles: No ventriculomegaly. Paranasal sinuses: Visualized sinuses are unremarkable. No fluid levels. Mastoid air cells: Visualized mastoid air cells are well aerated. Bones/joints: Unremarkable. No acute fracture. Soft tissues: Unremarkable. IMPRESSION: No acute intracranial hemorrhage PROCEDURE INFORMATION: Exam: CT Cervical Spine Without Contrast Exam date and time: 03/31/2022 7:38 PM Age: 72 years old Clinical indication: Other: Head injury on eliquis TECHNIQUE: Imaging protocol: Computed tomography of the cervical spine without contrast. COMPARISON: CT CHEST PE CTA 08/24/2019 9:36 AM FINDINGS: Bones/joints: No acute fracture. Loss of cervical lordosis is presumably on a degenerative basis.No significant disc protrusion. No severe spinal canal stenosis. Multilevel foraminal stenosis Lungs: Severe emphysema Soft tissues: Unremarkable. Chronic deformity of the medial left clavicle IMPRESSION: No acute findings. Dictated and Authenticated by: Jass Jimenez MD. Ordering:JAYASHREE Parham MD
--- NOTE | 2022-03-31 20:07 | DI.VRAD_ITS ---
PROCEDURE INFORMATION: Exam: CT Chest With Contrast; Diagnostic Exam date and time: 03/31/2022 7:43 PM Age: 72 years old Clinical indication: Injury or trauma; Generalized; Blunt trauma (contusions or hematomas); Injury date: 03/31/21; Injury details: Fall, left flank pain TECHNIQUE: Imaging protocol: Diagnostic computed tomography of the chest with contrast. 3D rendering (Not supervised by radiologist): MIP and/or 3D reconstructed images were created by the technologist. Radiation optimization: All CT scans at this facility use at least one of these dose optimization techniques: automated exposure control; mA and/or kV adjustment per patient size (includes targeted exams where dose is matched to clinical indication); or iterative reconstruction. Contrast material: OMNI 350; Contrast volume: 100 ml; Contrast route: INTRAVENOUS (IV); COMPARISON: CT CHEST PE CTA 08/24/2019 9:36 AM FINDINGS: Lungs: Severe emphysema and mild subsegmental atelectasis versus scarring No consolidation. No masses. Pleural spaces: Unremarkable. No pneumothorax. No pleural effusion. Heart: Unremarkable. No cardiomegaly. No pericardial effusion. Lymph nodes: Unremarkable. No enlarged lymph nodes. Vasculature: Unremarkable. No aortic aneurysm. Bones/joints: Chronic deformity to the medial left clavicle. No acute fracture. Soft tissues: Unremarkable. IMPRESSION: No acute findings. No CT evidence for acute traumatic injury to the chest Severe emphysema PROCEDURE INFORMATION: Exam: CT Abdomen And Pelvis With Contrast Exam date and time: 03/31/2022 7:43 PM Age: 72 years old Clinical indication: Injury or trauma; Generalized; Blunt trauma (contusions or hematomas); Injury date: 03/31/21; Injury details: Fall, left flank pain TECHNIQUE: Imaging protocol: Computed tomography of the abdomen and pelvis with contrast. 3D rendering (Not supervised by radiologist): MIP and/or 3D reconstructed images were created by the technologist. Radiation optimization: All CT scans at this facility use at least one of these dose optimization techniques: automated exposure control; mA and/or kV adjustment per patient size (includes targeted exams where dose is matched to clinical indication); or iterative reconstruction. Contrast material: OMNI 350; Contrast volume: 100 ml; Contrast route: INTRAVENOUS (IV); COMPARISON: CT CHEST PE ABD PELVIS W 03/29/2019 8:18 PM FINDINGS: Liver: Normal. No mass. Gallbladder and bile ducts: Normal. No calcified stones. No ductal dilation. Pancreas: Normal. No ductal dilation. Spleen: Normal. No splenomegaly. Adrenal glands: Normal. No mass. Kidneys and ureters: Normal. No hydronephrosis. Stomach and bowel: Postsurgical changes at the gastroesophageal junction. Abnormal thickening at the gastroesophageal junction and distal stomach No obstruction. Colonic diverticulosis noted. Appendix: No evidence of appendicitis. Intraperitoneal space: Unremarkable. No free air. No significant fluid collection. Vasculature: Atherosclerosis and mural thrombus in the distal ectatic abdominal aorta. 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 Lymph nodes: Unremarkable. No enlarged lymph nodes. Urinary bladder: Unremarkable as visualized. Reproductive: Unremarkable as visualized. Bones/joints: Unremarkable. No acute fracture. Soft tissues: Unremarkable. IMPRESSION: No acute findings. No solid organ injury Non-specific thickening in the stomach which may be related to under distention. Consider follow-up endoscopy as clinically indicated Dictated and Authenticated by: Jass Jimenez MD. Ordering:JAYASHREE Parham MD
[2022-03-31] MEDS: oxyCODONE 5 mg/Acetaminophen 325 mg TAB 1 TAB PO (20:48)
[2022-03-31 21:01] VITALS: BP 150/92; PULSE 102; RESP 24; TEMP 37.2; O2SAT 71
--- NOTE | 2022-04-01 09:32 | W.ED.GENAD ---
Discharge Plan Disposition Patient Disposition: Home Condition: Stable Discharge Details Clinical Impression: Chest wall contusion, Back contusion, Elevated hemoglobin, Elevated hematocrit Primary Care Provider: Keena Alejo ED Provider: Dione Gallardo Home Meds and New Rx's Prescriptions: New oxycodone 5 mg capsule 5 mg PO Q8H PRNQty: 6 0RF Continued albuterol sulfate 90 mcg/actuation HFA aerosol inhaler 2 puff inhalation Q4H PRN (Reason: shortness of breath or wheezing) Qty: 8.5 12RF amlodipine 5 mg tablet 5 mg PO DAILY Qty: 90 3RF Stiolto Respimat 2.5-2.5 mcg/actuation mist 2 puff IH DAILY Qty: 4 12RF Eliquis 2.5 mg tablet 2.5 mg PO BID Qty: 180 3RF Discharge Instructions Instructions: Contusion in Adults (ED) Additional Instructions: Take at least 10 deep breaths daily if you do not develop pneumonia Take the oxycodone sparingly, this medication is addictive and can make you constipated, do not drive for 8 hours after taking it Return earlier should you have new or worsening complaints please increase your your fluid intake and recheck CBC with your doctor Stand Alone Forms: Work Release Referrals: Keena Alejo, BUILDING INSULATION SUPERVISOR [Primary Care Provider] - 2 days Discharge Data Discharge Date/Time-TO BE ENTERED AT DEPARTURE: 03/31/22 20:58 Medical Decision Making 72-year-old male on Eliquis presents status post fall at abdominal and chest wall pain Secondary to her comorbidities, current prescription medications, and reported mechanism of injury recommendation for CT chest abdomen pelvis and had with cervical spine Initial read per virtual radiology does not show evidence of acute pathology of head, cervical spine, chest, abdomen, pelvis, patient is at his baseline oxygenation initially 87% and in no respiratory distress, ambulatory with steady gait He is made aware regarding his diagnostic labs with hemoglobin and hematocrit reviewed and elevated for patient although he typically is at the high end of normal, he is on oxygen at home but does not wear oxygen while he is out and about and so has refused oxygen throughout this encounter, apparently on his repeat assessment, his repeat oxygenation was 71% on room air, I was not notified regarding this until after patient had been discharged I had evaluated him several minutes prior and he was alert, oriented, speaking in complete sentences and ambulatory with steady gait at this time He has known severe emphysema and is oxygen dependent at home with a baseline oxygenation of 87% Blood liberated from our radiologist shows that patient has rib fractures to his 11th and 12th ribs, he was notified regarding this finding and he is reportedly feeling marked improvement in declines reassessment at this time He is aware that he is at risk for further deterioration and even from this injury and his baseline emphysema places him at high risk, he will continue to work on spirometry at home, take pain medication, and uses oxygen He is given very low threshold to return should he have new or worsening complaints is aware he will need repeat labs at home, specifically CBC He is fully alert, oriented, of decisional capacity and his remains in the room throughout the entirety of this assessment HPI General Date/Time Provider Initiated Documentation: 03/31/22 17:57. HPI Narrative: This 72-year-old gentleman with history of COPD, pulmonary embolism, and chronic anticoagulation on apixaban presents status post fall yesterday. He states he slipped and fell onto the stairs of his porch. He denies any loss of consciousness or head injury. He has had pain since that time. He states the pain is exacerbated with movement and deep breathing. He denies any abdominal pain associated. He denies loss of consciousness, nausea, vomiting, or any acute shortness of breath. Related Data Home Medications Medication Instructions Recorded Confirmed albuterol sulfate 90 mcg/actuation 2 puff inhalation Q4H PRN 04/06/21 03/31/22 aerosol inhaler shortness of breath or wheezing #8.5 grams amlodipine 5 mg tablet 5 mg PO DAILY #90 tabs 08/25/21 03/31/22 tiotropium 2.5 mcg-olodaterol 2.5 2 puff inhalation DAILY #4 grams 12/21/21 03/31/22 mcg/actuation mist for inhalation (Stiolto Respimat) apixaban 2.5 mg tablet (Eliquis) 2.5 mg PO BID #180 tabs 12/22/21 03/31/22 oxycodone 5 mg capsule 5 mg PO Q8H PRN #6 caps 03/31/22 Previous Rx's Medication Instructions Recorded albuterol sulfate 90 mcg/actuation 2 puff inhalation Q4H PRN 01/10/22 aerosol inhaler shortness of breath or wheezing #8.5 grams amlodipine 5 mg tablet 5 mg PO DAILY #90 tabs 08/25/21 tiotropium 2.5 mcg-olodaterol 2.5 2 puff inhalation DAILY #4 grams 12/21/21 mcg/actuation mist for inhalation (Stiolto Respimat) apixaban 2.5 mg tablet (Eliquis) 2.5 mg PO BID #180 tabs 12/22/21 oxycodone 5 mg capsule 5 mg PO Q8H PRN #6 caps 03/31/22 Allergies Allergy/AdvReac Type Severity Reaction Status Date / Time Penicillins Allergy Unknown Verified 01/05/22 09:59 General Stated Complaint: Nk/Back Pain HE: 4 Review of Systems Narrative: Review of systems obtained x10 and negative aside from indication in HPI PFSH All Active Problems (Updated 03/31/22 @ 20:40 by JEANNIE Angel) Cerumen impaction (Acute) Chest wall contusion (Acute) Back contusion (Acute) Elevated hemoglobin (Acute) Elevated hematocrit (Acute) Respiratory failure with hypoxia (Acute) 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, O2 dependent Pulmonary hypertension (Acute) Non-sustained ventricular tachycardia (Acute) Hypertension (Chronic) Pulmonary embolism (Chronic) 2020-on Eliquis long-term Polyp of colon (Chronic 02/24/06) 2006; tubular adenoma normal colonoscopy 2010 Intra-abdominal hernia (Chronic 02/24/02) abdominal hernia-repair 03/2004--recurred 06/30--repaired 2005 (Juan) Anxiety (Chronic) Medical History Jensen's esophagus BPH without urinary obstruction COPD (chronic obstructive pulmonary disease) case management patient Smoker quit Surgical History abdominal wall hernia repair 03/2004 2006 Colonoscopy - MAC (~2006) 2007 10/2010 Extraction of cataract Elida Fundoplication (~1997) Rotator Cuff Repair (~07/2010) right Family History Mother Heart disease COPD (chronic obstructive pulmonary disease) Father Diabetes Personal history of malignant neoplasm LUNG/BRAIN Sister Diabetes Heart disease Brother Diabetes Heart disease Grandfather Heart disease Grandfather No problems noted. Grandmother No problems noted. Grandmother No problems noted. Sister Heart disease Hyperlipidemia Brother No problems noted. Son Essential hypertension Son No problems noted. 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. Pets and animals: Yes Pets and animals: dog(s) Sexually active: Yes Do you think of yourself as: straight/heterosexual Current gender identity: male What is your relationship status?: How often do you talk on the phone with friends or family?: decline to answer How often do you get together with friends or relatives?: decline to answer How often do you attend religion or latter day services?: decline to answer Do you belong to any clubs or organized social groups?: yes Panel score (0-1 are the most socially isolated patients): 2 What type of physical activity do you participate in: walking Duration: > 90 minutes/day Frequency: daily Rosie/Zoroastrian: Shinto Special rosie needs: No Do you feel safe at home: Yes Do you feel safe in your relationship?: Yes Additional Social history: Previously enjoyed bicycling. Exam Const General: cooperative, comfortable and no acute distress HENMT Head: normal to inspection Eyes Pupils: PERRL Neck Other: No midline tenderness Chest Chest: normal inspection of the chest Resp Effort & Inspection: tachypneic Other: Scant scattered wheezes throughout, no significant respiratory distress No visible sign of trauma tenderness to left posterior thorax and lateral thorax on mid axillary line, no crepitus Cardio Rate: regular rate Rhythm: regular rhythm GI Inspection: normal to inspection Other: Tenderness to left flank and upper quadrants, no sign of trauma Back/Spine/Pelvis Other: Midline tenderness Skin General skin exam: no rashes or lesions noted Neuro General: patient alert and patient oriented x3 Other: Ambulatory steady gait, GCS 15 Extrem Other: No visible sign of trauma, distal pulses intact Course Vital Signs Vital signs: Vital Signs Temperature 37.6 C 03/31/22 17:03 Pulse 101 H 03/31/22 17:03 Respiratory Rate 20 03/31/22 17:03 Blood Pressure 136/84 03/31/22 17:03 Temperature 37.2 C 03/31/22 21:01 Temperature Source Skin 03/31/22 17:03 Pulse 102 H 03/31/22 21:01 Respiratory Rate 24 03/31/22 21:01 Respiratory Effort 03/31/22 17:11 Blood Pressure 150/92 H 03/31/22 21:01 Blood Pressure Position Sitting 03/31/22 17:03 Pulse Oximetry 71 L 03/31/22 21:01 Oxygen Delivery Method Room Air 03/31/22 17:03 Oxygen Flow Rate 0 03/31/22 17:03 Pain Level 8 03/31/22 17:03 Lab/Test Results Lab/Test Results: Laboratory Tests Range/Units 03/31/22 03/31/22 03/31/22 18:31 18:31 18:31 WBC (4.4-10.8) 10^3/uL 7.79 RBC (4.36-5.78) 10^6/uL 6.77 H Hgb (13.5-17.5) g/dL 21.1 H* Hct (40.0-50.0) % 64.3 H* MCV (80-95) fL 95 MCH (27.0-33.0) pg 31.2 MCHC (32.0-36.0) % 32.8 RDW (11.8-14.1) % 16.7 H Plt Count (130-400) 10^3/uL 233 MPV (8.0-11.0) fL 10.4 Immature Gran % 0.6 Neutrophils % 74.7 Lymphocytes % 11.8 Monocytes % 11.2 Eosinophils % 1.2 Basophils % 0.5 Nucleated RBC % (0.0-0.3) % 0.0 Absolute Neutrophils (1.2-6.7) 10^3/uL 5.82 Absolute Lymphocytes (1.2-3.4) 10^3/uL 0.92 L Absolute Monocytes (0.1-0.8) 10^3/uL 0.87 H Absolute Eosinophils (0.0-0.7) 10^3/uL 0.09 Absolute Basophils (0.0-0.2) 10^3/uL 0.04 Sodium (136-145) mmol/L 143 Potassium (3.5-5.1) mmol/L 4.1 Chloride (98-107) mmol/L 106 Carbon Dioxide (21.0-32.0) mmol/L 31.3 Anion Gap (3-11) mmol/L 5.7 BUN (7-18) mg/dL 18 Creatinine (0.70-1.30) mg/dL 1.2 Est GFR (CKD-EPI 2020) (mL/min/1.73m2) 64.25 Glucose (74-106) mg/dL 126 H Calcium (8.5-10.1) mg/dL 9.2 Total Bilirubin (0.2-1.0) mg/dL 0.6 AST (15-37) U/L 23 ALT (16-63) U/L 20 Alkaline Phosphatase (46-116) U/L 81 Total Protein (6.4-8.2) g/dL 8.0 Albumin (3.4-5.0) g/dL 3.6 Lipase (73-393) U/L 44 Patient ABO/Rh O Positive Antibody Screen NEGATIVE
== END 2022-03-31 20:58 | disposition home or self-care (01) ==
PROVIDERS: Emergency Provider Physician Assistant; PCP Nurse Practitioner Family
DX: S20.212A Contusion of left front wall of thorax, initial encounter (principal); S20.222A Contusion of left back wall of thorax, initial encounter; W00.0XXA Fall on same level due to ice and snow, initial encounter; R71.8 Other abnormality of red blood cells; R79.89 Other specified abnormal findings of blood chemistry; Z79.01 Long term (current) use of anticoagulants; J43.8 Other emphysema
CPT/HCPCS: 36415; 74177; 80053; 83690; 86850; 86900; 86901; 99284; 70450; 71260; 72125; 85025; J3490

== ENCOUNTER 2022-04-29 03:27 | Outpatient (CLI) | payer OTHER, SELFPAY ==
[2022-04-29 12:09] LABS: Abs Immature Grans 0.03 10^3/uL (0.0-0.06); Absolute Basophil Count 0.06 10^3/uL (0.0-0.2); Absolute Eosinophil Count 0.13 10^3/uL (0.0-0.7); Absolute Lymphocyte Count 1.08 10^3/uL (1.2-3.4); Absolute Monocyte Count 0.62 10^3/uL (0.1-0.8); Absolute Neutrophil Count 4.58 10^3/uL (1.2-6.7); Basophils % 0.9; Immature Grans % 0.5; Lymphocytes % 16.6; MCH 31.2 pg (27.0-33.0); MCHC 32.6 % (32.0-36.0); MCV 96 fL (80-95); MPV 10.1 fL (8.0-11.0); Monocytes % 9.5; Neutrophils % 70.5; Platelet Count 192 10^3/uL (130-400); RBC 6.54 10^6/uL (4.36-5.78); RDW 14.6 % (11.8-14.1); RDW-SD 50.6 fL
[2022-04-29 12:17] LABS: Hemoglobin A1C 5.6 % (<5.7)
[2022-04-29 12:28] LABS: Diff Comment Diff Reviewed; RBC Morphology Normal
[2022-04-29 12:47] LABS: Calculated LDL 89 mg/dL (<100); Cholesterol 162 mg/dL (<200); HDL Cholesterol 64 mg/dL (40-60); TSH (W/Ref FT4) 2.73 uIU/mL (0.36-3.74); Triglyceride 49 mg/dL (<150)
[2022-04-29 13:29] LABS: HGB 20.4 g/dL (13.5-17.5)
[2022-04-29 13:30] LABS: HCT 62.5 % (40.0-50.0)
== END 2022-04-29 03:28 | disposition home or self-care (01) ==
PROVIDERS: PCP Nurse Practitioner Family; Visit Provider Nurse Practitioner Family
DX: E78.5 Hyperlipidemia, unspecified (principal); R73.01 Impaired fasting glucose; D75.1 Secondary polycythemia
CPT/HCPCS: 80061; 83036; 84443; 85025

== ENCOUNTER 2022-05-04 04:28 | Outpatient (CLI) | payer OTHER, SELFPAY ==
[2022-05-04 14:28] LABS: ALT 17 U/L (16-63); AST 21 U/L (15-37); Albumin 3.7 g/dL (3.4-5.0); Alkaline Phosphatase 85 U/L (46-116); BUN 21 mg/dL (7-18); Bilirubin, Total 0.6 mg/dL (0.2-1.0); CREATININE 1.3 mg/dL (0.70-1.30); Calcium 9.6 mg/dL (8.5-10.1); Chloride 103 mmol/L (98-107); Estimated GFR 58.37 (mL/min/1.73m2); Glucose 110 mg/dL (74-106); Potassium 4.7 mmol/L (3.5-5.1); Sodium 139 mmol/L (136-145); Total Protein 7.8 g/dL (6.4-8.2)
[2022-05-05 14:32] LABS: Erythropoietin 17.2 mIU/mL (2.6 - 18.5)
[2022-05-07 18:33] LABS: JAK2 Result see interpretation
== END 2022-05-04 04:29 | disposition home or self-care (01) ==
PROVIDERS: PCP Nurse Practitioner Family; Visit Provider Nurse Practitioner Family
DX: D75.1 Secondary polycythemia (principal); I10 Essential (primary) hypertension
CPT/HCPCS: 36415; 80053; 82668; 81270

== ENCOUNTER 2022-05-24 22:19 | Outpatient (REF) | payer OTHER, SELFPAY | END 2022-05-24 22:20 | disposition home or self-care (01) | LOC: LBN 22:19 | PROVIDERS: PCP Nurse Practitioner Family; Visit Provider Nurse Practitioner Family | DX: N30.90 Cystitis, unspecified without hematuria (principal) | CPT/HCPCS: 87086 ==

== ENCOUNTER 2022-10-06 02:42 | Outpatient (CLI) | payer OTHER, SELFPAY ==
[2022-10-06 08:54] LABS: Abs Immature Grans 0.04 10^3/uL (0.0-0.06); Absolute Basophil Count 0.04 10^3/uL (0.0-0.2); Absolute Eosinophil Count 0.14 10^3/uL (0.0-0.7); Absolute Lymphocyte Count 1.15 10^3/uL (1.2-3.4); Absolute Monocyte Count 0.62 10^3/uL (0.1-0.8); Absolute Neutrophil Count 4.57 10^3/uL (1.2-6.7); Basophils % 0.6; Eosinophils % 2.1; Immature Grans % 0.6; Lymphocytes % 17.5; MCH 31.6 pg (27.0-33.0); MCV 96 fL (80-95); MPV 10.1 fL (8.0-11.0); Monocytes % 9.5; Neutrophils % 69.7; Platelet Count 180 10^3/uL (130-400); RDW-SD 52.5 fL; WBC 6.56 10^3/uL (4.4-10.8)
[2022-10-06 09:44] LABS: HCT 66.6 % (40.0-50.0)
[2022-10-06 09:45] LABS: Calculated LDL 52 mg/dL (<100); Cholesterol 114 mg/dL (<200); HDL Cholesterol 55 mg/dL (40-60); Triglyceride 38 mg/dL (<150)
[2022-10-06 09:51] LABS: Diff Comment Diff Reviewed
[2022-10-06 09:52] LABS: RBC Morphology Normal
[2022-10-06 09:53] LABS: RBC 6.96 10^6/uL (4.36-5.78)
== END 2022-10-06 02:43 | disposition home or self-care (01) ==
LOC: LBO 02:42
PROVIDERS: PCP Nurse Practitioner Family; Visit Provider Nurse Practitioner Family
DX: D75.1 Secondary polycythemia (principal); E78.5 Hyperlipidemia, unspecified
CPT/HCPCS: 36415; 80061; 85025

== ENCOUNTER → 2023-01-07 08:14 | Outpatient (BNVA) | payer MEDICARE, SELFPAY | PROVIDERS: PCP Nurse Practitioner Family; Referring Provider Nurse Practitioner Family; Visit Provider Student in an Organized Health Care Education/Training Program | DX: Z79.51 Long term (current) use of inhaled steroids (principal); Z79.899 Other long term (current) drug therapy; J43.2 Centrilobular emphysema; I27.20 Pulmonary hypertension, unspecified; J96.11 Chronic respiratory failure with hypoxia | CPT/HCPCS: 94618; 94664; 99214 ==

== ENCOUNTER → 2023-07-06 09:03 | Outpatient (BNVA) | payer MEDICARE, SELFPAY | PROVIDERS: PCP Nurse Practitioner Family; Referring Provider Nurse Practitioner Family; Visit Provider Physician Assistant Surgical | DX: J43.2 Centrilobular emphysema (principal); J96.11 Chronic respiratory failure with hypoxia; I27.20 Pulmonary hypertension, unspecified | CPT/HCPCS: 99214 ==

== ENCOUNTER → 2023-07-14 03:07 | Outpatient (CLI) | payer MEDICARE, SELFPAY ==
[2023-07-14 07:14] LABS: Abs Immature Grans 0.02 10^3/uL (0.0-0.06); Absolute Basophil Count 0.07 10^3/uL (0.0-0.2); Absolute Eosinophil Count 0.17 10^3/uL (0.0-0.7); Absolute Lymphocyte Count 1.05 10^3/uL (1.2-3.4); Absolute Neutrophil Count 4.42 10^3/uL (1.2-6.7); Basophils % 1.1; Eosinophils % 2.7; Immature Grans % 0.3; Lymphocytes % 16.9; MCH 31.7 pg (27.0-33.0); MCHC 33.6 % (32.0-36.0); MPV 9.9 fL (8.0-11.0); RDW 17.6 % (11.8-14.1); RDW-SD 54.6 fL; WBC 6.23 10^3/uL (4.4-10.8)
[2023-07-14 07:28] LABS: ALT 22 U/L (16-63); AST 24 U/L (15-37); Albumin 3.8 g/dL (3.4-5.0); Alkaline Phosphatase 70 U/L (46-116); Anion Gap 9.3 mmol/L (3-11); BUN 18 mg/dL (7-18); Bilirubin, Total 1.2 mg/dL (0.2-1.0); CO2 29.7 mmol/L (21.0-32.0); CREATININE 1.4 mg/dL (0.70-1.30); Calcium 9.7 mg/dL (8.5-10.1); Chloride 104 mmol/L (98-107); Estimated GFR 53.07 (mL/min/1.73m2); Glucose 105 mg/dL (74-106); MCV 94 fL (80-95); Potassium 4.7 mmol/L (3.5-5.1); Sodium 143 mmol/L (136-145); Total Protein 7.7 g/dL (6.4-8.2)
[2023-07-14] MEDS: Barium Sulfate 2% W/V-Berry Smoothie 450 ML BTL PO ×2 (07:28→07:29)
[2023-07-14 07:39] LABS: RBC 7.23 10^6/uL (4.36-5.78)
[2023-07-14 07:40] LABS: Platelet Count 160 10^3/uL (130-400)
[2023-07-14 07:43] LABS: Diff Comment Diff Reviewed; RBC Morphology Normal
[2023-07-14 08:20] LABS: HCT 68.1 % (40.0-50.0)
[2023-07-14 08:21] LABS: HGB 22.9 g/dL (13.5-17.5)
[2023-07-14] MEDS: Omnipaque 350 MG/ML 500 ML BTL-Imaging package 100 ML IJ (08:56)
[2023-07-14] MEDS: Normal Saline Flush 10 ML SYR IVP (08:57)
[2023-07-14] MEDS: Normal Saline - Diluent 50 ML VIAL IJ (08:57)
--- NOTE | 2023-07-14 09:21 | DI.CT_ITS ---
Exam(s) CT ABDOMEN PELVIS W EXAM: CT ABDOMEN PELVIS W CLINICAL HISTORY: ?recurrent hernia,Epigastric pain with palpable hernia,h/o repair TECHNIQUE: Imaging Protocol: Axial computed tomography images with coronal and sagittal reformatted images were created and reviewed. CONTRAST MATERIAL: Intravenous: Omnipaque 350 Contrast volume:100 mL Oral: Yes COMPARISON: CT CT CHEST PE ABD PELVIS W from 03/29/[address] CHEST PE CTA from 08/24/[address] CHEST/ABD/PEL W from 03/31/2022 FINDINGS: The examination is limited due to patient motion artifact. ABDOMEN: Lung Bases: Cardiomegaly. Moderately severe emphysematous changes are seen in the lung bases. There is stable opacities in the right middle lobe left lingula and right lower lobe likely reflecting sca rring or chronic atelectasis. Liver: Normal density. No measurable mass. Portal, Superior Mesenteric, and Splenic Veins: Unremarkable. Gallbladder and Biliary Tract: No radiodense calculus or dilation. Pancreas: Normal density, no abnormal calcifications or inflammatory process. Spleen: Normal. Adrenals: No masses seen. Kidneys: Normal size, contour and axis. No radiodense stones or obstructive uropathy. No masses seen. Abdominal Aorta: Abdominal portion non-dilated. Atherosclerotic calcification is present. There is e ctasia of the distal abdominal aorta measuring 2.8 cm. There is aneurysmal dilatation of the left co mmon iliac artery measuring up to 2.4 cm. Bowel: There is diverticulosis seen in the colon but no evidence of acute diverticulitis. No evidenc e of bowel obstruction or bowel wall thickening. Appendix is unremarkable. Peritoneal Cavity: No ascites, collection or mesenteric inflammatory response. No free air. Lymph Nodes: Within normal limits. Bones: Within normal limits for the patient's age. There are old healed left rib fracture deformitie s. Soft Tissues: Prior anterior abdominal wall surgery with mesh is in place. Superior to the surgery t here is a small fat containing midline anterior abdominal wall hernia. (Series 8, images [id number]). PELVIS: Bladder: There are several bladder diverticula present. Reproductive Organs: Prostate gland is mildly enlarged. Lymph Nodes: Within normal limits. Bones: Within normal limits for the patient's age. IMPRESSION: 1. Small fat containing midline anterior abdominal wall hernia (series 8, images [id number]). 2. Left common iliac artery aneurysm measuring up to 2.4 cm. 3. Incidental findings in the abdomen and pelvis as described above. RADIATION DOSE DELIVERED: 704.79mGy.cm Total DLP DATA REPOSITORY: All CT scans at this facility are submitted to the National Radiology Data Registry (NRDR) Dose Index Registry (DIR) with the [employer] (ACR). RADIATION OPTIMIZATION: All CT scans at this facility use at least one of these dose optimization te chniques: automated exposure control; mA and/or kV adjustment per patient size (includes targeted exa ms where dose is matched to clinical indication); or iterative reconstruction.
== END ==
PROVIDERS: PCP Nurse Practitioner Family; Visit Provider Nurse Practitioner Family
DX: R10.9 Unspecified abdominal pain (principal); Z98.890 Other specified postprocedural states; Z87.19 Personal history of other diseases of the digestive system; K46.9 Unspecified abdominal hernia without obstruction or gangrene; I72.3 Aneurysm of iliac artery
CPT/HCPCS: 36415; 80053; 74177; 85025

== ENCOUNTER 2023-10-17 18:54 | Emergency (ER) | payer MEDICARE, SELFPAY ==
[2023-10-17] VITALS (42 sets, daily range): BP systolic 154–206; BP diastolic 101–131; PULSE 83–105; RESP 12–30; TEMP 36.6; O2SAT 79–91
--- NOTE | 2023-10-17 19:30 | RT.EKG_ITS ---
APPROVED REPORT Exam: Resting ECG Reason for Exam: dizziness Patient Location: E HR:100 bpm ECG Measurements Heart Rate 100 AXIS NJ 155 P 15 QRSd 85 QRS 247 QT 376 T 100 QTc 485 Conclusion Sinus tachycardia...rate> 99 Atrial premature complexes...SV complexes w/ short R-R intvls Left atrial enlargement...P, P'>60mS, <-0.15mV V1 Left anterior fascicular block...axis(240,-40), init forces inf Abnormal T, consider ischemia, lateral leads...T <-0.20mV, I aVL V5 V6 sinus tachycardia, normal axis,t wave inversions anterior lead
--- NOTE | 2023-10-17 20:00 | DI.RAD_ITS ---
Exam(s) XR CHEST 2V PA LATERAL EXAM: XR CHEST 2V PA LATERAL CLINICAL HISTORY: sneezed multiple times, left arm numb, copd TECHNIQUE: 2D digital imaging was performed of the chest. Two images were obtained. PA and lateral views were obtained. COMPARISON: CR,XR XR CHEST 2V PA LATERAL from 03/29/2019 FINDINGS: MEDIASTINUM: Normal. HEART: Normal. PULMONARY VASCULATURE: Normal. LUNGS: There is COPD present. Stable chronic appearing scarring is seen in the lung bases bilaterall y. No new focal consolidating infiltrates are seen. PLEURAL SPACE: No pleural effusion or pneumothorax. BONE:Within normal limits for the patient's age. There is a left convex curvature of the thoracic sp ine. OTHER FINDINGS:Normal. IMPRESSION: No acute change in appearance of the chest x-ray. DATA REPOSITORY: RADIATION DOSE DELIVERED:
[2023-10-17 20:12] LABS: Abs Immature Grans 0.03 10^3/uL (0.0-0.06); Absolute Basophil Count 0.07 10^3/uL (0.0-0.2); Absolute Eosinophil Count 0.06 10^3/uL (0.0-0.7); Absolute Lymphocyte Count 1.06 10^3/uL (1.2-3.4); Absolute Monocyte Count 0.72 10^3/uL (0.1-0.8); Absolute Neutrophil Count 6.63 10^3/uL (1.2-6.7); Basophils % 0.8 %; Eosinophils % 0.7 %; Immature Grans % 0.4 %; Lymphocytes % 12.4 %; MCH 32.5 pg (27.0-33.0); MCV 96 fL (80-95); Monocytes % 8.4 %; Neutrophils % 77.3 %; Platelet Count 141 10^3/uL (130-400); RBC 6.98 10^6/uL (4.36-5.78); RDW 15.3 % (11.8-14.1); RDW-SD 50.5 fL; WBC 8.57 10^3/uL (4.4-10.8)
--- NOTE | 2023-10-17 20:23 | ED.GENADUL_ITS ---
Discharge Plan Disposition Patient Disposition: Home Condition: Improving Discharge Details Chief Complaint: GenMedical Clinical Impression: COPD (chronic obstructive pulmonary disease), Hypertension, Elevated troponin Primary Care Provider: Keena Alejo ED Provider: Andrea Miller Home Meds and New Rx's Prescriptions: No Action lisinopril 10 mg tablet 20 mg PO DAILY Qty: 90 3RF Eliquis 2.5 mg tablet 2.5 mg PO BID Qty: 180 3RF rosuvastatin 10 mg tablet 10 mg PO DAILY Qty: 90 3RF omeprazole 20 mg capsule,delayed release(DR/EC) 20 mg PO BID Qty: 180 3RF albuterol sulfate 90 mcg/actuation HFA aerosol inhaler 2 puff inhalation Q4H PRN (Reason: shortness of breath or wheezing) Qty: 8.5 12RF Stiolto Respimat 2.5-2.5 mcg/actuation mist 2 puff IH DAILY Qty: 4 12RF Discharge Instructions Instructions: Chronic obstructive pulmonary disease (COPD), High Blood Pressure ED Additional Instructions: Please follow-up with primary care and cardiology team. Return to the emergency department for any worsening symptoms HPI General Date/Time Provider Initiated Documentation: 10/17/23 19:53 . HPI Narrative: 73-year-old male history of COPD on 3 L nasal cannula at home presents with numbness to his left arm now resolved after sneezing multiple times. Denies headache neck pain nausea vomiting chest pain shortness of breath weakness or current numbness. No difficulty speaking or ambulating. Symptoms began around 5 PM have now completely resolved, lasted only a couple minutes Related Data Home Medications ?Medication ?Instructions ?Recorded ?Confirmed albuterol sulfate 90 mcg/actuation 2 puff inhalation Q4H PRN 04/04/23 10/17/23 aerosol inhaler shortness of breath or wheezing #8.5 grams tiotropium 2.5 mcg-olodaterol 2.5 2 puff inhalation DAILY #4 grams 04/04/23 10/17/23 mcg/actuation mist for inhalation (Stiolto Respimat) rosuvastatin 10 mg tablet 10 mg PO DAILY #90 tabs 04/25/23 10/17/23 omeprazole 20 mg capsule,delayed 20 mg PO BID #180 caps 05/27/23 10/17/23 release apixaban 2.5 mg tablet (Eliquis) 2.5 mg PO BID #180 tabs 09/19/23 10/17/23 lisinopril 10 mg tablet 20 mg (2 x 10 mg) PO DAILY #90 tabs 10/17/23 10/17/23 Previous Rx's ?Medication ?Instructions ?Recorded albuterol sulfate 90 mcg/actuation 2 puff inhalation Q4H PRN 04/04/23 aerosol inhaler shortness of breath or wheezing #8.5 grams tiotropium 2.5 mcg-olodaterol 2.5 2 puff inhalation DAILY #4 grams 04/04/23 mcg/actuation mist for inhalation (Stiolto Respimat) rosuvastatin 10 mg tablet 10 mg PO DAILY #90 tabs 04/25/23 omeprazole 20 mg capsule,delayed 20 mg PO BID #180 caps 05/27/23 release apixaban 2.5 mg tablet (Eliquis) 2.5 mg PO BID #180 tabs 09/19/23 lisinopril 10 mg tablet 20 mg (2 x 10 mg) PO DAILY #90 tabs 10/17/23 Allergies Allergy/AdvReac Type Severity Reaction Status Date / Time Penicillins Allergy Unknown unknown Verified 10/17/23 19:24 amlodipine AdvReac peripheral Verified 10/17/23 19:24 edema General Stated Complaint: GenMedical HE: 3 Exam Narrative Exam Narrative: Patient resting actively no acute distress Moist mucous membranes tolerating secretions noted to have perioral cyanosis Lungs clear bilaterally no rales rhonchi or wheezing Normal heart sounds no murmurs rubs or gallops Cranial nerves II through XII intact 5-5 strength upper and lower extremities bilaterally, no ataxia No midline spinal tenderness step-off crepitus or deformity Course Vital Signs Vital signs: Vital Signs Temperature 36.6 C 10/17/23 19:14 Pulse 105 H 10/17/23 19:14 Respiratory Rate 20 10/17/23 19:14 Blood Pressure 157/111 H 10/17/23 19:14 Pulse Oximetry 86 L 10/17/23 19:14 Temperature 36.6 C 10/17/23 19:14 Pulse 93 H 10/17/23 20:05 Pulse 91 H 10/17/23 20:10 Respiratory Rate 17 10/17/23 20:10 Respiratory Effort Normal 10/17/23 20:09 Respiratory Depth Normal 10/17/23 20:09 Respiratory Pattern Normal 10/17/23 20:09 Blood Pressure 186/120 H 10/17/23 20:05 Blood Pressure Mean 139 10/17/23 20:05 Pulse Oximetry 91 L 10/17/23 20:10 Oxygen Delivery Method Nasal Cannula 10/17/23 20:09 Oxygen Flow Rate 6 10/17/23 20:09 Pain Level 0 10/17/23 19:14 Medical Decision Making 73-year-old male history of COPD presents with resolved left arm numbness after a series of sneezes, patient is no chest pain or shortness of breath baseline hypoxia 86 to 90% on 3 L nasal cannula, baseline cyanosis per patient and his partner, neurologically intact moving all extremities without deficits, no midline spinal tenderness no headache no chest pain no nausea no vomiting; consider electrolyte derangement versus cervical radiculopathy muscles consider pneumothorax given extensive COPD lower suspicion for CVA ACS PE or pneumonia lower suspicion for aortic pathology. Patient resting comfortably, pending labs and imaging patient be discharged home with close follow 23: 28 erythrocytosis likely related to longstanding COPD, consider demand elevation of troponin in the setting of COPD and hypertension, no chest pain no shortness of breath no evidence of PE, patient has had no further episodes of arm numbness, patient feeling comfortable to go home, will provide referral to see cardiology for potential stress test and echocardiogram; given home care instructions and strict return precautions Quality:SDOH Health Related Social Needs: Health related social needs inadequate housing Health related social needs details none PFSH All Active Problems (Updated 10/17/23 @ 23:30 by Andrea Miller MD) Elevated troponin (Acute) Hypertension (Chronic) COPD (chronic obstructive pulmonary disease) (Chronic) Respiratory failure with hypoxia (Chronic) COPD (chronic obstructive pulmonary disease) (Chronic) Bullous emphysema (Chronic) Followed by pulmonary, O2 dependent Secondary erythrocytosis (Acute) Pulmonary hypertension (Chronic) Peripheral artery disease (Chronic) AAA (abdominal aortic aneurysm) (Chronic) 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) CKD (chronic kidney disease) stage 3, GFR 30-59 ml/min (Acute) Chronic anticoagulation (Chronic) History of venous thromboembolism (Chronic) Left leg DVT, PE 2019 History of pulmonary embolism (Chronic ~2020) Hypertension (Chronic) Hyperlipidemia (Chronic) GERD (gastroesophageal reflux disease) (Chronic) Recurrent ventral hernia (Chronic) Diverticulosis of colon (Chronic) Medical History (Updated 10/17/23 @ 23:30 by Andrea Miller MD) Left leg DVT (2019) Former cigarette smoker Tubular adenoma of colon Non-sustained ventricular tachycardia Pulmonary embolism (2019) Jensen's esophagus BPH without urinary obstruction Anxiety Surgical History (Updated 09/17/22 @ 07:23 by Keena Alejo NP) Status post ORIF of fracture of ankle Right S/P colonoscopy H/O ventral hernia repair Hx of cataract surgery S/P right rotator cuff repair Status post Elida fundoplication Family History (Updated 09/17/22 @ 07:22 by Keena Alejo NP) Mother Heart disease COPD (chronic obstructive pulmonary disease) Father Diabetes Metastatic primary lung cancer Sister Heart disease Sister Heart disease Brother Heart disease Diabetes Brother Heart disease Son Diabetes Hypertension Son No problems noted. Daughter Uterine cancer Maternal Grandfather No problems noted. Maternal Grandmother No problems noted. Paternal Grandfather No problems noted. Paternal Grandmother No problems noted. 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. Pets and animals: Yes Pets and animals: dog(s) Sexually active: Yes Do you think of yourself as: straight/heterosexual Current gender identity: male What is your relationship status?: How often do you talk on the phone with friends or family?: decline to answer How often do you get together with friends or relatives?: decline to answer How often do you attend yazidi or mandaeism services?: decline to answer Do you belong to any clubs or organized social groups?: yes Panel score (0-1 are the most socially isolated patients): 2 What type of physical activity do you participate in: walking Duration: > 90 minutes/day Frequency: daily Rosie/Protestant: Yarsanism Special rosie needs: No Do you feel safe at home: Yes Do you feel safe in your relationship?: Yes Additional Social history: Previously enjoyed bicycling.
[2023-10-17 20:24] LABS: Magnesium 1.6 mg/dL (1.8-2.4)
[2023-10-17 20:29] LABS: HGB 22.7 g/dL (13.5-17.5)
[2023-10-17 20:30] LABS: HCT 66.8 % (40.0-50.0)
[2023-10-17 20:33] LABS: ALT 60 U/L (16-63); AST 42 U/L (15-37); Albumin 3.5 g/dL (3.4-5.0); Alkaline Phosphatase 67 U/L (46-116); Anion Gap 8.7 mmol/L (3-11); BUN 33 mg/dL (7-18); Bilirubin, Total 1.28 mg/dL (0.2-1.0); CO2 28.3 mmol/L (21.0-32.0); CREATININE 1.6 mg/dL (0.70-1.30); Calcium 9.4 mg/dL (8.5-10.1); Chloride 106 mmol/L (98-107); Estimated GFR 45.21 (mL/min/1.73m2); Glucose 115 mg/dL (74-106); Potassium 4.3 mmol/L (3.5-5.1); Sodium 143 mmol/L (136-145); Total Protein 6.9 g/dL (6.4-8.2)
[2023-10-17 20:37] LABS: Troponin I 178 ng/L (< or =60)
[2023-10-17] MEDS: MAGNESIUM SULFATE 1 GM/100 ML BAG IVINF (20:39)
[2023-10-17] MEDS: Normal Saline 1,000 ML 1000 ML IV (20:40)
[2023-10-17 20:41] LABS: Diff Comment RBC Morph Reviewed
[2023-10-17 20:42] LABS: RBC Morphology Normal
[2023-10-17 21:08] LABS: INR 1.3 (0.9-1.1); PTT Activated 26.7 sec (23.6-32.8); Prothrombin Time 12.4 sec (9.1-11.1)
[2023-10-17] MEDS: Omnipaque 350 MG/ML 100 ML BTL IJ (21:12)
[2023-10-17] MEDS: Normal Saline - Diluent 50 ML VIAL IJ (21:15)
--- NOTE | 2023-10-17 21:30 | DI.CT_ITS ---
Exam(s) CT CHEST PE CTA EXAM: CT CHEST PE CTA CLINICAL HISTORY: hypoxia, rbbb, copd, concern for PE. TECHNIQUE: Imaging Protocol: Axial CT angiography was performed with multi-slice acquisition and mu lti-planar and/or 3D reconstructions. CONTRAST MATERIAL: Intravenous: Omnipaque 350 contrast volume:100 mL COMPARISON: CT CT CHEST/ABD/PEL W from 03/31/[address] ABDOMEN PELVIS W from 07/14/2023 CR,XR XR CHEST 2V PA LATERAL from 10/17/2023 FINDINGS: Tracheobronchial tree: Patent where visualized. There is mild bronchiectatic change associated with s carring in the right middle lobe. Pulmonary parenchyma: Marked centrilobular emphysematous changes are present. There is again seen an area of scarring in the right middle lobe with associated bronchiectasis. No new focal consolidatin g infiltrates are seen. No pulmonary nodules are present. Pulmonary Arteries: No evidence of filling defect to suggest pulmonary emboli. Mediastinum and Rocio: No dominant adenopathy or fluid collection. The esophagus is unremarkable. Visualized thyroid gland: Unremarkable. Pleura: No effusion or pneumothorax. Heart: Cardiomegaly. Coronary artery calcifications are present. No pericardial effusion. Aorta: Thoracic aorta non-dilated. Atherosclerotic calcification is present. Due to the timing of th e bolus, the thoracic aorta is not well opacified. Upper abdomen: Unremarkable. Soft tissues: Unremarkable. Bones: Within normal limits for the patient's age.Old rib fractures are present. IMPRESSION: 1. No evidence of pulmonary embolism or aneurysm. 2. No acute pulmonary process. RADIATION DOSE DELIVERED: Total DLP DATA REPOSITORY: All CT scans at this facility are submitted to the National Radiology Data Registry (NRDR) Dose Index Registry (DIR) with the [employer] (ACR). RADIATION OPTIMIZATION: All CT scans at this facility use at least one of these dose optimization te chniques: automated exposure control; mA and/or kV adjustment per patient size (includes targeted exa ms where dose is matched to clinical indication); or iterative reconstruction.
--- NOTE | 2023-10-17 21:38 | DI.VRAD_ITS ---
PROCEDURE INFORMATION: Exam: XR Chest Exam date and time: 10/17/2023 8:32 PM Age: 73 years old Clinical indication: Other: Sneezing, copd; Patient HX: Sneezed multiple times, left arm numb, copd TECHNIQUE: Imaging protocol: Radiologic exam of the chest. Views: 2 views. COMPARISON: CT CHEST/ABD/PEL W 03/31/2022 7:43 PM FINDINGS: Lungs: Mild basilar opacities left greater than right. Underlying hyperexpansion/bullous changes in keeping with COPD/emphysema Pleural spaces: No pleural effusion. No pneumothorax. Heart/Mediastinum: Tortuous aorta. No cardiomegaly. Bones/joints: Mild levoscoliosis of the spine. Gaseous distension in the upper abdomen IMPRESSION: Bibasilar subsegmental atelectasis suspected Non-specific bowel gas pattern. Further evaluation as clinically indicated Dictated and Authenticated by: Jass Jimenez MD. Ordering:SAUL Mendez MD
--- NOTE | 2023-10-17 21:38 | DI.VRAD_ITS ---
PROCEDURE INFORMATION: Exam: CTA Chest With Contrast Exam date and time: 10/17/2023 9:15 PM Age: 73 years old Clinical indication: Other: Hypoxia, rbbb, copd, concern for pe TECHNIQUE: Imaging protocol: Computed tomographic angiography of the chest with contrast. Exam focused on the arteries. 3D rendering (Not supervised by radiologist): MIP and/or 3D reconstructed images were created by the technologist. Contrast material: OMNIPAQUE 350; Contrast volume: 100 ml; Contrast route: INTRAVENOUS (IV); COMPARISON: CT CHEST PE CTA 08/24/2019 9:36 AM FINDINGS: Pulmonary arteries: No pulmonary emboli. Aorta: No aortic aneurysm. Lungs: Severe emphysema. Minimal subsegmental atelectasis No consolidation. No masses. Pleural spaces: Unremarkable. No pneumothorax. No pleural effusion. Heart: Unremarkable. No cardiomegaly. No pericardial effusion. Lymph nodes: Unremarkable. No enlarged lymph nodes. Bones/joints: Unremarkable. No acute fracture. Soft tissues: Unremarkable. IMPRESSION: No pulmonary emboli observed Severe emphysema Dictated and Authenticated by: Jass Jimenez MD. Ordering:SAUL Mendez MD
[2023-10-17 23:15] LABS: Troponin I 177 ng/L (< or =60)
--- NOTE | 2023-10-17 23:25 | NUR.NOTE ---
Referral faxed to [facility] to f/u in a week for elevated troponin, to determine if he needs a stress test.Nursing Note:
== END 2023-10-17 23:59 | disposition home or self-care (01) ==
PROVIDERS: Emergency Provider Emergency Medicine; PCP Nurse Practitioner Family
DX: R20.0 Anesthesia of skin (principal); I10 Essential (primary) hypertension; H90.42 Sensorineural hearing loss, unilateral, left ear, with unrestricted hearing on the contralateral side; R79.89 Other specified abnormal findings of blood chemistry; J44.9 Chronic obstructive pulmonary disease, unspecified; Z86.79 Personal history of other diseases of the circulatory system; Z86.711 Personal history of pulmonary embolism; Z79.01 Long term (current) use of anticoagulants
CPT/HCPCS: 36415; 71275; 80053; 93005; 96365; 99285; 71046; 83735; 84484; 85025; 85610; 85730; 93010; 99283; J3475; J3490

== ENCOUNTER 2023-11-04 00:31 | Outpatient (CLI) | payer MEDICARE, SELFPAY ==
--- NOTE | 2023-11-04 07:15 | DI.MRI_ITS ---
Exam(s) MR BRAIN WO EXAM: MR BRAIN WO CLINICAL HISTORY: left arm numbness,? INFARCT,R20.0 TECHNIQUE: Multiplanar multisequence MRI of the brain was performed. COMPARISON: CT CT HEAD CERVICAL SPINE WO from 03/31/2022 FINDINGS: CEREBRAL PARENCHYMA: There is no evidence of intracranial hemorrhage, mass effect, or shift of midline structures. There are no extra-axial fluid collections. Ventricular size is unchanged from CT scan of 03/31/2022 There is no significant focal signal abnormality in the cerebellar hemispheres nor within the gladys, m idbrain, and thalami. There is patchy and partially confluent relatively symmetrical bright signal abnormality in the Annabelle and supra ventricular white matter bilaterally, not associated with hemorrhage, surrounding edema, no r restricted diffusion. Probably related to chronic white matter ischemic changes There is no significant focal signal abnormality evident on diffusion imaging to suggest acute ischem ic event. SWI reveals no evidence of microhemorrhages PITUITARY GLAND: No mass nor parasellar abnormality. No obvious abnormality in the cavernous sinuses. FLOW VOIDS: The expected flow void are noted. No evidence of obvious aneurysm nor obvious vascular ma lformation. PARANASAL SINUSES: The visualized paranasal sinuses appear unremarkable. No obvious finding ORBITS: No obvious findings. IMPRESSION: There is relatively symmetrical abundant periventricular white matter signal abnormality consistent w ith chronic small vessel disease. No evidence of acute lacune are nor territorial infarct. No evide nce of intracranial hemorrhage. DATA REPOSITORY:
== END 2023-11-04 00:51 ==
PROVIDERS: PCP Nurse Practitioner Family; Visit Provider Nurse Practitioner Family
DX: R20.0 Anesthesia of skin (principal)
CPT/HCPCS: 70551

== ENCOUNTER 2023-11-07 01:56 | Outpatient (CLI) | payer MEDICARE, SELFPAY ==
--- NOTE | 2023-11-07 06:45 | DI.NM_ITS ---
APPROVED REPORT Exam: Pharmacologic Patient Location: Out-Patient Room/Bed: Stress Nurse: Ira Zhang RN Ordering Provider:BANDAR HOSKINS, Contact Number: [phone] BMI: 22.59 Baseline Rhythm: Sinus Rhythm Comment: Frequent PAC's, occasional PVC's Indications: Abnormal EKG, elevated troponin Medical History Medical History: LLL DVT, PE, anxiety, respiratory failure with hypoxia, COPD O2 dependent, PAD, AAA, pulmonary HTN, HTN, HLD, GERD, CKD, aneurysm of L common iliac artery, bullous emphysema Cardiac Medications: Albuterol sulfate, eliquis, lisinopril, omeprazole, rosuvastatin, stiolto respim at Allergies: Penicillins, amlodipine Cardiac Risk Factors: Family hx, HTN, HLD, COPD, PVD, former smoker Previous Cardiac Procedures: None Pretest Chest Pain Characteristics: None Exercise History: Sedentary Physical Disabilities: O2 dependent (5L) Lung Sounds: Clear to auscultation Heart Sounds: Irregular Stress Test Details Test: Pharmacologic stress testing performed using 0.4 mg of regadenoson per 5 mL given IV over 10 s econds. Reason for pharmacologic stress test: physical limitation. Nuclear Acquisition: Rest Tc-99m/Stress Tc-99m 1 day Rest Isotope: Tc-99m Sestamibi. Dose: 10.0 Date: 11/07/2023 Injection Time: 0910 Stress Isotope: Tc-99m Sestamibi. Dose: 30.0 Date: 11/07/2023 Injection Time: 1131 HR Resting HR Supine: 87 bpm Max Heart Rate (APMHR): 147.193499 bpm Target HR (85% APMHR): 124.176820 bpm Max HR Achieved: 98 bpm % of APMHR: 66.67 Recovery HR: 89 bpm BP Resting BP Supine: 154/80 mmHg Max BP: 172/98 mmHg Recovery BP: 134/100 mmHg ECG Resting ECG: Sinus Rhythm Ectopy: Occasional PAC's, occasional PVC's Stress ECG: Sinus Rhythm ST Change: Nondiagnostic low heart rate Arrhythmia: Occasional PAC's, occasional PVC's Recovery ECG: Sinus Rhythm Recovery ST Change: Nondiagnostic low heart rate Clinical Stress Symptoms: Mod SOB Angina Score: None Rate Pressure Product: 39811 Stress ECG Conclusion 1. Resting electrocardiogram showed right axis, early transition 2. Patient underwent testing using pharmacologic stress with regadenoson 3. Peak heart rate achieved was 67% of predicted for age 4. The electrocardiographic portion of the test was nondiagnostic 5. Atrial and ventricular ectopy was noted 6. See MPI report Stress Test Summary STAGE HR BP SpO2 Symptoms NOTES Supine 87 154/80 1 min post Lexiscan injection 88 172/98 91% 5L O2 3 min post Lexiscan injection 93 150/100 89% 5L O2 Mod SOB 6 min post Lexiscan injection 89 134/100 88% 5L O2 All symptoms resolved Patient on 5L O@ at baseline. Left ambulatory on home O2 in no apparent distress. MPI Conclusion Myocardial perfusion is normal. There is no ischemia or evidence of prior infarction Ejection fraction is 59% with normal wall motion Radiologist Interpretation Radiologist Interpretation by: Turner Nieves MD Interpretation Date/Time: 11/07/2023 16:33:21
[2023-11-07] MEDS: Regadenoson 0.4 MG/5 ML SYR IVP (11:40)
== END 2023-11-07 02:16 ==
LOC: DI 01:56
PROVIDERS: PCP Nurse Practitioner Family; Visit Provider Nurse Practitioner Family
DX: R94.31 Abnormal electrocardiogram [ECG] [EKG] (principal); R79.89 Other specified abnormal findings of blood chemistry
CPT/HCPCS: 78452; 93016; 93018; 93017; J2785

== ENCOUNTER 2023-11-10 04:39 | Outpatient (CLI) | payer MEDICARE, SELFPAY ==
[2023-11-10 09:46] LABS: ALT 39 U/L (16-63); AST 30 U/L (15-37); Albumin 3.5 g/dL (3.4-5.0); Alkaline Phosphatase 70 U/L (46-116); Anion Gap 8.1 mmol/L (3-11); BUN 27 mg/dL (7-18); Bilirubin, Total 0.95 mg/dL (0.2-1.0); CO2 30.9 mmol/L (21.0-32.0); CREATININE 1.4 mg/dL (0.70-1.30); Calcium 9.3 mg/dL (8.5-10.1); Chloride 104 mmol/L (98-107); Estimated GFR 53.07 (mL/min/1.73m2); Glucose 94 mg/dL (74-106); Magnesium 1.9 mg/dL (1.8-2.4); Potassium 4.3 mmol/L (3.5-5.1); Sodium 143 mmol/L (136-145)
[2023-11-10 20:56] LABS: PSA, Screening 0.5 ng/mL (<=6.5)
[2023-11-11 09:05] LABS: HIV-1/2 Ag & Ab Screen Negative (Negative)
[2023-11-11 11:08] LABS: HBs Antibody, Quant <3.1 mIU/mL (See Note); Hep B Surface Ab Negative (See Note); Hepatitis B Core Antibody Negative (Negative); Hepatitis B Surface Antigen Negative (Negative)
[2023-11-11 11:56] LABS: Hepatitis C Ab w Rflx HCV PCR Negative (Negative)
[2023-11-14 13:16] LABS: Lab Add On Test DONE
[2023-11-14 13:39] LABS: TSH (W/Ref FT4) 3.23 uIU/mL (0.36-3.74)
== END 2023-11-10 04:40 | disposition home or self-care (01) ==
PROVIDERS: PCP Nurse Practitioner Family; Visit Provider Nurse Practitioner Family
DX: Z11.4 Encounter for screening for human immunodeficiency virus [HIV] (principal); D75.1 Secondary polycythemia; Z00.00 Encounter for general adult medical examination without abnormal findings; Z12.5 Encounter for screening for malignant neoplasm of prostate; Z11.59 Encounter for screening for other viral diseases; I10 Essential (primary) hypertension; R79.0 Abnormal level of blood mineral; R63.4 Abnormal weight loss
CPT/HCPCS: 36415; 80053; 84153; 86704; 86706; 86803; 87340; 87389; 83735; 84443

== ENCOUNTER 2023-11-25 12:46 | Outpatient (CLI) | payer MEDICARE, SELFPAY ==
--- NOTE | 2023-11-25 12:45 | RT.EKG_ITS ---
APPROVED REPORT Exam: Resting ECG Reason for Exam: NPW Baseline needed Patient Location: O HR:89 bpm ECG Measurements Heart Rate 89 AXIS IN 158 P 70 QRSd 91 QRS 202 QT 375 T -52 QTc 457 Conclusion Sinus rhythm...normal P axis, V-rate 50- 99 Nonspecific T abnormalities, lateral leads...T <-0.10mV, I aVL V5 V6 Rate decreased from previous
== END 2023-11-25 12:47 | disposition home or self-care (01) ==
LOC: DI.CARD 12:53
PROVIDERS: PCP Nurse Practitioner Family; Referring Provider Nurse Practitioner Family; Visit Provider Internal Medicine Cardiovascular Disease
DX: J43.2 Centrilobular emphysema (principal); Z99.81 Dependence on supplemental oxygen; I71.40 Abdominal aortic aneurysm, without rupture, unspecified; I73.9 Peripheral vascular disease, unspecified
CPT/HCPCS: 93010

== ENCOUNTER → 2023-11-25 12:46 | Outpatient (BNVA) | payer MEDICARE, SELFPAY | PROVIDERS: PCP Nurse Practitioner Family; Referring Provider Nurse Practitioner Family; Visit Provider Internal Medicine Cardiovascular Disease | DX: I42.2 Other hypertrophic cardiomyopathy (principal); I25.10 Atherosclerotic heart disease of native coronary artery without angina pectoris; I73.9 Peripheral vascular disease, unspecified; J43.9 Emphysema, unspecified | CPT/HCPCS: 93005; 99214 ==

== ENCOUNTER → 2023-11-30 13:47 | Outpatient (BNVA) | payer MEDICARE, SELFPAY | PROVIDERS: PCP Nurse Practitioner Family; Referring Provider Nurse Practitioner Family; Visit Provider Internal Medicine | DX: J96.11 Chronic respiratory failure with hypoxia (principal); J43.9 Emphysema, unspecified; Z99.81 Dependence on supplemental oxygen; R63.4 Abnormal weight loss; I27.20 Pulmonary hypertension, unspecified; D75.1 Secondary polycythemia; Z86.711 Personal history of pulmonary embolism | CPT/HCPCS: 94618; 99215 ==

== ENCOUNTER 2023-12-06 03:06 | Outpatient (CLI) | payer MEDICARE, SELFPAY ==
[2023-12-06 09:24] LABS: BE 2 mmol/L (-2-3); HCO3 27 mmol/L (22-26); pCO2 45 mmHg (35-45); pO2 42 mmHg (80-105); sO2 77 % (95-98); tCO2 22 mmol/L (23-27)
[2023-12-06 09:25] LABS: FIO2L 5 L; Site Right Radial
== END 2023-12-06 03:07 | disposition home or self-care (01) ==
LOC: RT 03:06
PROVIDERS: PCP Nurse Practitioner Family; Visit Provider Internal Medicine
DX: J96.11 Chronic respiratory failure with hypoxia (principal)
CPT/HCPCS: 82805; 36600

== ENCOUNTER → 2024-01-09 08:58 | Outpatient (BNVA) | payer MEDICARE, SELFPAY | PROVIDERS: PCP Nurse Practitioner Family; Referring Provider Nurse Practitioner Family; Visit Provider Physician Assistant Surgical | DX: J43.2 Centrilobular emphysema (principal); I27.20 Pulmonary hypertension, unspecified; J96.11 Chronic respiratory failure with hypoxia | CPT/HCPCS: 99214 ==

== ENCOUNTER 2024-03-15 09:19 | Outpatient (CLI) | payer MEDICARE, SELFPAY ==
[2024-03-15 12:51] LABS: Anion Gap 7.7 mmol/L (3-11); BUN 34 mg/dL (7-18); CO2 34.3 mmol/L (21.0-32.0); CREATININE 1.6 mg/dL (0.70-1.30); Calcium 10.1 mg/dL (8.5-10.1); Chloride 103 mmol/L (98-107); Estimated GFR 45.21 (mL/min/1.73m2); Glucose 110 mg/dL (74-106); Potassium 3.7 mmol/L (3.5-5.1); Sodium 145 mmol/L (136-145)
== END 2024-03-15 09:20 | disposition home or self-care (01) ==
LOC: LOS 09:19
PROVIDERS: PCP Nurse Practitioner Family; Referring Provider Nurse Practitioner Family; Visit Provider Nurse Practitioner Family
DX: I10 Essential (primary) hypertension (principal); N18.30 Chronic kidney disease, stage 3 unspecified; N40.1 Benign prostatic hyperplasia with lower urinary tract symptoms; N13.8 Other obstructive and reflux uropathy
CPT/HCPCS: 36415; 80048

== ENCOUNTER 2024-04-26 14:17 | Outpatient (REF) | payer MEDICARE, SELFPAY | END 2024-04-26 14:18 | disposition home or self-care (01) | LOC: LBN 14:17 | PROVIDERS: PCP Nurse Practitioner Family; Visit Provider Physician Assistant | DX: N39.0 Urinary tract infection, site not specified (principal); R82.89 Other abnormal findings on cytological and histological examination of urine | CPT/HCPCS: 87086 ==

== ENCOUNTER 2024-05-02 22:04 | Outpatient (REF) | payer MEDICARE, SELFPAY ==
[2024-05-02 21:57] LABS: Bilirubin Negative (Negative); Blood Negative (Negative); Clarity Clear (Clear); Glucose Negative (Negative); Ketones Negative (Negative); Leukocyte Esterase Small (Negative); Nitrite Negative (Negative); Urobilinogen 0.2 mg/dL (Up to 0.2)
[2024-05-02 22:04] LABS: Bacteria Negative HPF (Negative); C & S Indicated? C&S Done As Ordered; Crystals Negative HPF (Negative); Epithelial Cells Rare HPF (Negative); Mucus Negative (Negative); RBC 0-2 HPF (0-2)
== END 2024-05-02 22:05 | disposition home or self-care (01) ==
LOC: LBN 22:04
PROVIDERS: PCP Nurse Practitioner Family; Visit Provider Nurse Practitioner Family
DX: R30.0 Dysuria (principal); R39.15 Urgency of urination
CPT/HCPCS: 87077; 81003; 81015; 87086; 87186

== ENCOUNTER 2024-05-07 02:48 | Outpatient (CLI) | payer MEDICARE, SELFPAY ==
[2024-05-07 11:50] LABS: PHOSPHORUS 3.7 mg/dL (2.6-4.7)
[2024-05-07 19:46] LABS: Parathyroid Hormone,Intact 51.8 pg/mL (19.0-88.0)
== END 2024-05-07 02:49 | disposition home or self-care (01) ==
LOC: LBO 02:48
PROVIDERS: PCP Nurse Practitioner Family; Visit Provider Nurse Practitioner Family
DX: N18.30 Chronic kidney disease, stage 3 unspecified (principal)
CPT/HCPCS: 36415; 83970; 84100

== ENCOUNTER → 2024-07-10 08:27 | Outpatient (BNVA) | payer MEDICARE, SELFPAY | PROVIDERS: PCP Nurse Practitioner Family; Referring Provider Nurse Practitioner Family; Visit Provider Physician Assistant Surgical | DX: J43.2 Centrilobular emphysema (principal); I27.20 Pulmonary hypertension, unspecified; J96.11 Chronic respiratory failure with hypoxia; Z79.01 Long term (current) use of anticoagulants | CPT/HCPCS: 99214 ==

== ENCOUNTER 2025-01-11 11:25 | Outpatient (REF) | payer MEDICARE, SELFPAY | END 2025-01-11 11:26 | disposition home or self-care (01) | LOC: LBN 11:25 | PROVIDERS: PCP Nurse Practitioner Family; Visit Provider Physician Assistant | DX: N39.0 Urinary tract infection, site not specified (principal) | CPT/HCPCS: 87086 ==

== ENCOUNTER 2025-02-18 10:35 | Inpatient (IN) | payer OTHER, SELFPAY ==
[2025-02-18] VITALS (127 sets, daily range): BP systolic 111–187; BP diastolic 83–119; PULSE 53–105; RESP 5–30; TEMP 36–37; O2SAT 69–96
--- NOTE | 2025-02-18 10:30 | RT.EKG_ITS ---
APPROVED REPORT Exam: Resting ECG Reason for Exam: SOB Patient Location: E HR:75 bpm ECG Measurements Heart Rate 75 AXIS [place] 163 P 94 QRSd 101 QRS 167 QT 431 T -78 QTc 482 Conclusion Sinus rhythm...normal P axis, V-rate 60- 99 Multiform ventricular premature complexes...short R-R, variable morphology Left atrial enlargement...P, P'>60mS, <-0.15mV V1
--- NOTE | 2025-02-18 10:45 | DI.RAD_ITS ---
Exam(s) XR PORTABLE CHEST AP EXAM: XR PORTABLE CHEST AP CLINICAL HISTORY: SHORTNESS OF BREATH TECHNIQUE: 2D digital imaging was performed of the chest. Two images were obtained. AP views were obtained. COMPARISON: CR,XR XR PORTABLE CHEST AP from 03/31/[address] CHEST PE CTA from 10/17/2023 CR,XR XR CHEST 2V PA LATERAL from 10/17/2023 FINDINGS: MEDIASTINUM: Normal. HEART: Normal. PULMONARY VASCULATURE: Normal. LUNGS: There are marked emphysematous changes in the lungs. The pulmonary densities appears stable compared to the prior CT scan of the chest from 10/17/2023 and the chest x-ray from 10/17/2023. No definite new focal consolidating infiltrates are present. PLEURAL SPACE: No pleural effusion or pneumothorax. BONE:Within normal limits for the patient's age. OTHER FINDINGS:Normal. IMPRESSION: 1. Marked emphysema and chronic basilar changes in the lungs. 2. No definite acute superimposed pneumonia is seen at this time. Follow-up as clinically appropriate. DATA REPOSITORY: RADIATION DOSE DELIVERED:
--- NOTE | 2025-02-18 10:57 | W.ED.GENAD ---
Discharge Plan Disposition Patient Disposition: Admit to [facility] Condition: Serious Discharge Details Clinical Impression: COPD (chronic obstructive pulmonary disease), Acute and chronic respiratory failure with hypoxia, Acute exacerbation of CHF (congestive heart failure) Admit Date/Time: 02/18/25 13:12 Admit Provider: Don Doe Attending Provider: Don Doe Primary Care Provider: Yesenia Willson ED Provider: Scott Payton Discharge Data Discharge Date/Time-TO BE ENTERED AT DEPARTURE: 02/18/25 14:33 HPI General Date/Time Provider Initiated Documentation: 02/18/25 10:54. Limitations to Documentation: no limitations. Information obtained by: patient. HPI Narrative: HISTORY OF PRESENT ILLNESS 74-year-old male with COPD presenting with increased shortness of breath. Usual oxygen saturation 87-88%, on home oxygen at 6 L/min. Increased dyspnea attributed to fluid accumulation. BP medication discontinued due to hypotension; BP normalized after cessation of diuretic therapy, but edema developed. Patient notes increased leg swelling over the past 4-5 days. No current pain. No recent chest pain. Shortness of breath worse with exertion. Related Data Home Medications ?Medication ?Instructions ?Recorded ?Confirmed apixaban 2.5 mg tablet (Eliquis) 2.5 mg PO BID #180 tabs 09/19/23 02/18/25 tiotropium 2.5 mcg-olodaterol 2.5 2 puff inhalation DAILY #4 grams 12/26/23 02/18/25 mcg/actuation mist for inhalation (Stiolto Respimat) tamsulosin 0.4 mg capsule 0.4 mg PO DAILY #90 caps 02/03/24 02/18/25 rosuvastatin 10 mg tablet 10 mg PO DAILY #90 tabs 03/15/24 02/18/25 albuterol sulfate 90 mcg/actuation 2 puff inhalation Q4H PRN 07/10/24 02/18/25 aerosol inhaler shortness of breath or wheezing #8.5 grams omeprazole 20 mg capsule,delayed 20 mg PO BID PRN 07/10/24 02/18/25 release furosemide 20 mg tablet (Lasix) 20 mg PO DAILY #30 tabs 02/20/25 Previous Rx's ?Medication ?Instructions ?Recorded apixaban 2.5 mg tablet (Eliquis) 2.5 mg PO BID #180 tabs 09/19/23 tiotropium 2.5 mcg-olodaterol 2.5 2 puff inhalation DAILY #4 grams 12/26/23 mcg/actuation mist for inhalation (Stiolto Respimat) tamsulosin 0.4 mg capsule 0.4 mg PO DAILY #90 caps 02/03/24 rosuvastatin 10 mg tablet 10 mg PO DAILY #90 tabs 03/15/24 albuterol sulfate 90 mcg/actuation 2 puff inhalation Q4H PRN 07/10/24 aerosol inhaler shortness of breath or wheezing #8.5 grams furosemide 20 mg tablet (Lasix) 20 mg PO DAILY #30 tabs 02/20/25 Allergies Allergy/AdvReac Type Severity Reaction Status Date / Time Penicillins Allergy Unknown unknown Verified 02/18/25 10:40 amlodipine AdvReac peripheral Verified 02/18/25 10:40 edema General Stated Complaint: SOB HE: 2 Review of Systems All systems reviewed & are unremarkable except as noted in HPI and below Constitutional Constitutional: Denies fever(s) Exam Const General: cooperative Nutritional Appearance: thin Orientation: alert HENMT Mouth: moist mucous membranes Eyes Conjunctivae: normal conjunctivae Sclera: normal sclerae Neck Neck: trachea midline and supple Resp Effort & Inspection: labored, respiratory distress and tachypneic Auscultation: rales, no rhonchi and no wheezes Cardio Rate: regular rate and not tachycardic Rhythm: regular rhythm GI Palpation: soft, not firm, no guarding, no masses, not rigid and nontender Skin Other: cyanosis Neuro General: patient alert, patient awake and tone normal Extrem General: edema Laterality: bilateral Psych Appearance: grossly normal Mental Status: mental status grossly normal Course Vital Signs Vital signs: Vital Signs Temperature 37 C 02/18/25 10:42 Pulse 105 H 02/18/25 10:42 Respiratory Rate 30 H 02/18/25 10:42 Pulse Oximetry 69 L 02/18/25 10:42 Temperature 37 C 02/18/25 10:48 Temperature Source Tympanic 02/18/25 10:48 Pulse 105 H 02/18/25 10:48 Pulse 89 02/18/25 10:50 Respiratory Rate 23 02/18/25 10:50 Respiratory Effort Short of Breath, Labored, Tripod, Incrsd Work of Breathing 02/18/25 10:48 Blood Pressure 142/102 H 02/18/25 10:48 Blood Pressure Mean 114 02/18/25 10:46 Blood Pressure Position Sitting 02/18/25 10:48 Pulse Oximetry 69 L 02/18/25 10:48 Oxygen Delivery Method Nasal Cannula 02/18/25 10:48 Oxygen Flow Rate 6 02/18/25 10:48 Medical Decision Making ASSESSMENT AND PLAN Initial Assessment: 74-year-old male with history of COPD, coronary artery disease, pulmonary hypertension, history of PE, now on apixaban, chronic kidney disease, oxygen dependent, here with increased dyspnea and leg swelling over 4-5 days. Off diuretic for weeks, contributing to fluid accumulation. Patient has respiratory distress, mildly hypertensive and tachycardic. Patient saturating in the 70s on 5 L nasal cannula. Differential Diagnosis: - COPD exacerbation: Increased dyspnea. Trial of BiPAP. - Fluid overload: Leg swelling. Diuresis needed. - Respiratory failure ED Course: - VBG checked - Respiratory therapy consulted to initiate BiPAP I reviewed past medical record, echocardiogram from 09/16: Conclusion Normal left ventricular wall thickness and chamber size. Estimated ejection fraction is 60 to 65%. Wall motion is normal Right ventricle is normal in size and systolic function Both atria are normal in size The aortic valve is trileaflet with trace regurgitation Mildly thickened mitral leaflets. There is trace mitral regurgitation Normal tricuspid valve with trace to mild regurgitation. Estimated right ventricular systolic pressure is 45 mmHg Mildly dilated ascending aorta measuring 3.68 cm - VBG reviewed, patient is compensating. Respiratory therapy notes tolerating BiPAP well. - Chest x-ray reviewed and interpreted by radiology: 1. Marked emphysema and chronic basilar changes in the lungs. 2. No definite acute superimposed pneumonia is seen at this time. Follow-up as clinically appropriate. - Labs reviewed and BNP is elevated. Plan to give Lasix 40 mg IV. Nitroglycerin infusion initiated and titrated. - Trop elevated. EKG was reviewed and intepreted by me: please see report, no STEMI. - Case reviewed with hospitalist who will admit the patient. Care transitioned at time of admission. Clinical Impression: -Acute CHF exacerbation - Acute hypoxic respiratory failure Disposition: Admission for further management This document was written with the assistance of JUSTINA Oliver. The patient consented to its use. Lab Data Lab results reviewed: Yes I reviewed the patient's lab results. Quality:SDOH Health Related Social Needs: Health related social needs details none Critical Care Time Critical Care Time Critical Care Time: Yes Total Critical Care Time: 45 Attestation: Due to a high probability of clinically significant, life threatening deterioration, the patient required my highest level of preparedness to intervene emergently and I personally spent this critical care time directly and personally managing the patient. This critical care time included obtaining a history; examining the patient; pulse oximetry; ordering and review of studies; arranging urgent treatment with development of a management plan; evaluation of patient's response to treatment; frequent reassessment; and, discussions with other providers. This critical care time was performed to assess and manage the high probability of imminent, life-threatening deterioration that could result in multi-organ failure. It was exclusive of separately billable procedures and treating other patients and teaching time. Please see MDM section and the rest of the note for further information on patient assessment and treatment. 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) CKD (chronic kidney disease) stage 3, GFR 30-59 ml/min (Acute) Chronic anticoagulation (Chronic) History of venous thromboembolism (Chronic) Left leg DVT, PE 2019 BPH w urinary obs/LUTS (Chronic) Hyperlipidemia (Chronic) GERD (gastroesophageal reflux disease) (Chronic) Recurrent ventral hernia (Chronic) Diverticulosis of colon (Chronic) Medical History Left leg DVT (2019) Former cigarette smoker Tubular adenoma of colon Non-sustained ventricular tachycardia Pulmonary embolism (2019) Jensen's esophagus Anxiety Surgical History Status post ORIF of fracture of ankle Right S/P colonoscopy H/O ventral hernia repair Hx of cataract surgery S/P right rotator cuff repair Status post Elida fundoplication Family History Mother Heart disease COPD (chronic obstructive pulmonary disease) Father Diabetes Metastatic primary lung cancer Sister Heart disease Sister Heart disease Brother Heart disease Diabetes Brother Heart disease Son Diabetes Hypertension Son No problems noted. Daughter Uterine cancer Maternal Grandfather No problems noted. Maternal Grandmother No problems noted. Paternal Grandfather No problems noted. Paternal Grandmother No problems noted. 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 Pets and animals: Yes Pets and animals: dog(s) Sexually active: Yes Do you think of yourself as: straight/heterosexual Current gender identity: male What is your relationship status?: How often do you talk on the phone with friends or family?: decline to answer How often do you get together with friends or relatives?: decline to answer How often do you attend buddhism or zoroastrianism services?: decline to answer Do you belong to any clubs or organized social groups?: yes Panel score (0-1 are the most socially isolated patients): 2 What type of physical activity do you participate in: walking Duration: > 90 minutes/day Frequency: daily Rosie/Buddhism: Judaism Special rosie needs: No Do you feel safe at home: Yes Do you feel safe in your relationship?: Yes Additional Social history: Previously enjoyed bicycling.
[2025-02-18 11:04] LABS: Abs Immature Grans 0.03 10^3/uL (0.0-0.06); Immature Grans % 0.5 %; MCH 32.5 pg (27.0-33.0); MCHC 33.1 % (32.0-36.0); MCV 98 fL (80-95); MPV 10.7 fL (8.0-11.0); Platelet Count 118 10^3/uL (130-400); RBC 6.04 10^6/uL (4.36-5.78); RDW 14.9 % (11.8-14.1); RDW-SD 53.6 fL; WBC 6.32 10^3/uL (4.4-10.8)
[2025-02-18 11:06] LABS: HCT 59.3 % (40.0-50.0); HGB 19.6 g/dL (13.5-17.5)
[2025-02-18 11:15] LABS: BE (Venous) 3 mmol/L (-2-3); HCO3 (Venous) 29 mmol/L (23-28); O2 Sat (Venous) 53 %; TCO2 (Venous) 24 mmol/L (24-29); pCO2 (Venous) 52 mmHg (41-51); pO2 (Venous) 31 mmHg
[2025-02-18 11:47] LABS: Magnesium 1.6 mg/dL (1.6-2.6)
[2025-02-18 11:48] LABS: ALT 32 U/L (10-49); AST 36 U/L (<34); Albumin 3.3 g/dL (3.4-5.0); Alkaline Phosphatase 89 U/L (46-116); Anion Gap 9.9 mmol/L (3-11); BUN 16 mg/dL (9-23); Bilirubin, Total 1.10 mg/dL (0.2-1.2); CO2 28.1 mmol/L (20.0-31.0); Calcium 8.6 mg/dL (8.3-10.6); Chloride 103 mmol/L (98-107); Glucose 161 mg/dL (74-106); Potassium 4.2 mmol/L (3.5-5.1); Sodium 141 mmol/L (136-145); Total Protein 5.9 g/dL (5.7-8.2)
[2025-02-18] MEDS: Furosemide 40 MG/4 ML VIAL IVP (12:07)
[2025-02-18 12:16] LABS: Troponin I 347 ng/L (<54)
[2025-02-18 13:02] LABS: Troponin I 343 ng/L (<54)
[2025-02-18] MEDS: nitroGLYcerin in D5W 50 MG/250 ML BTL 15 MG IV (13:03)
--- NOTE | 2025-02-18 13:13 | W.PM.HP.N ---
Date of service: 02/18/25 Time of Service: 13:13 Assessment and Plan Assessment and plan (1) Acute and chronic respiratory failure with hypoxia: Status: Acute Assessment and plan: - Patient desaturated to low 70s on his baseline 6 L nasal cannula - Was initially placed on BiPAP in the emergency department - On arrival to the ICU he is on 8 L high flow nasal cannula saturating at 88% - Continue to wean oxygen as tolerated with goal SpO2 88 to 92% - Is likely secondary to CHF exacerbation as noted below (2) Acute exacerbation of CHF (congestive heart failure): Status: Acute Assessment and plan: - Patient has history of heart failure and recently having his chlorthalidone discontinued - This resulted in likely acute on chronic hypoxic respiratory failure as noted above as well as bilateral lower extremity edema - Status post 40 mg IV Lasix in the emergency department; patient has had 1600 mL out since - Will order 40 mg IV Lasix twice daily to begin tomorrow morning - Also started on nitroglycerin in the emergency department to help with afterload, will continue - Will obtain follow-up echocardiogram (3) Coronary artery disease: Status: Chronic Assessment and plan: - History of coronary artery disease - Continue home statin (4) Bullous emphysema: Status: Chronic Assessment and plan: -History of, likely contributing to patient's significant baseline oxygen requirement - Without acute exacerbation - Continue home inhaler regimen (5) Secondary erythrocytosis: Status: Acute Assessment and plan: - Secondary to bullous emphysema as noted above as well as chronic hypoxic respiratory failure (6) History of pulmonary embolism: Status: Chronic Assessment and plan: - Continue home Eliquis (7) Pulmonary hypertension: Status: Chronic Assessment and plan: - Secondary to bullous emphysema and CHF as noted above History of Present Illness History of Present Illness Chief Complaint: SOB Narrative: 74-year-old gentleman with a past medical history of COPD, chronic hypoxic respiratory failure on 6 L nasal cannula, coronary artery disease, pulmonary hypertension, history of PE on Eliquis, CKD and CHF who presents to the emergency department with complaints of shortness of breath. Patient states that he began increasingly short of breath and noticed increased swelling in his bilateral lower extremities of the last 4 to 5 days. He states that a few weeks ago his chlorthalidone was discontinued. He denies any fever, headache, lightheadedness, dizziness, chest pain, nausea vomiting or diarrhea. In the emergency department the patient was noted as saturating down to the low 70s on his baseline 6 L nasal cannula and appeared volume overloaded with +3 pitting edema in bilateral lower extremities and crackles and bilateral bases. Additionally, his blood pressure was elevated as high as 187/118 however chest x-ray did not show any acute findings. CBC was remarkable for known polycythemia with a hemoglobin of 19.6 (which is roughly baseline), CMP was unremarkable, patient troponin was 347 which is roughly his baseline, and proBNP was 18,000. Patient was placed on BiPAP, was given 40 mg of IV Lasix, and placed on nitroglycerin drip. At which time emergency room provider paged hospitalist for admission for patient with acute on chronic hypoxic respiratory failure secondary to an acute exacerbation of congestive heart failure. Review of Systems All systems reviewed & are unremarkable except as noted in HPI and below PFSH All Active Problems (Updated 02/18/25 @ 11:59 by Scott Payton MD) Acute exacerbation of CHF (congestive heart failure) (Acute) Acute and chronic respiratory failure with hypoxia (Acute) Respiratory failure with hypoxia (Chronic) COPD (chronic obstructive pulmonary disease) (Chronic) Coronary artery disease (Chronic) Bullous emphysema (Chronic) Followed by pulmonary, O2 dependent Weight loss, unintentional (Acute) Secondary erythrocytosis (Acute) History of pulmonary embolism (Chronic ~2019) Oxygen dependent (Chronic) Pulmonary hypertension (Chronic) Peripheral artery disease (Chronic) AAA (abdominal aortic aneurysm) (Chronic) Hypertension (Chronic) 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) CKD (chronic kidney disease) stage 3, GFR 30-59 ml/min (Acute) Chronic anticoagulation (Chronic) History of venous thromboembolism (Chronic) Left leg DVT, PE 2019 BPH w urinary obs/LUTS (Chronic) Hyperlipidemia (Chronic) GERD (gastroesophageal reflux disease) (Chronic) Recurrent ventral hernia (Chronic) Diverticulosis of colon (Chronic) Medical History Left leg DVT (2019) Former cigarette smoker Tubular adenoma of colon Non-sustained ventricular tachycardia Pulmonary embolism (2019) Jensen's esophagus Anxiety Surgical History Status post ORIF of fracture of ankle Right S/P colonoscopy H/O ventral hernia repair Hx of cataract surgery S/P right rotator cuff repair Status post Elida fundoplication Family History Mother Heart disease COPD (chronic obstructive pulmonary disease) Father Diabetes Metastatic primary lung cancer Sister Heart disease Sister Heart disease Brother Heart disease Diabetes Brother Heart disease Son Diabetes Hypertension Son No problems noted. Daughter Uterine cancer Maternal Grandfather No problems noted. Maternal Grandmother No problems noted. Paternal Grandfather No problems noted. Paternal Grandmother No problems noted. 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 Pets and animals: Yes Pets and animals: dog(s) Sexually active: Yes Do you think of yourself as: straight/heterosexual Current gender identity: male What is your relationship status?: How often do you talk on the phone with friends or family?: decline to answer How often do you get together with friends or relatives?: decline to answer How often do you attend sabianist or confucianism services?: decline to answer Do you belong to any clubs or organized social groups?: yes Panel score (0-1 are the most socially isolated patients): 2 What type of physical activity do you participate in: walking Duration: > 90 minutes/day Frequency: daily Rosie/Jainism: Shinto Special rosie needs: No Do you feel safe at home: Yes Do you feel safe in your relationship?: Yes Additional Social history: Previously enjoyed bicycling. Meds Allergies and Home Medications Allergies Allergy/AdvReac Type Severity Reaction Status Date / Time Penicillins Allergy Unknown unknown Verified 02/18/25 10:40 amlodipine AdvReac peripheral Verified 02/18/25 10:40 edema Home Medications ?Medication ?Instructions ?Recorded ?Confirmed ?Type apixaban 2.5 mg tablet (Eliquis) 2.5 mg PO BID #180 tabs 09/19/23 02/18/25 Rx tiotropium 2.5 mcg-olodaterol 2.5 2 puff inhalation DAILY #4 grams 12/26/23 02/18/25 Rx mcg/actuation mist for inhalation (Stiolto Respimat) tamsulosin 0.4 mg capsule 0.4 mg PO DAILY #90 caps 02/03/24 02/18/25 Rx rosuvastatin 10 mg tablet 10 mg PO DAILY #90 tabs 03/15/24 02/18/25 Rx albuterol sulfate 90 mcg/actuation 2 puff inhalation Q4H PRN 07/10/24 02/18/25 Rx aerosol inhaler shortness of breath or wheezing #8.5 grams omeprazole 20 mg capsule,delayed 20 mg PO BID PRN 07/10/24 02/18/25 History release Exam Narrative Exam Narrative: Fatigued, slender but otherwise well-appearing older gentleman sitting up in the bed in no acute distress, ANO x 4, 8 L high flow nasal cannula in place, lungs with mildly diminished breath sounds throughout, heart regular rhythm, abdomen soft, nontender, nondistended, +2-3 pitting edema in bilateral lower extremities Results Labs 02/18/25 10:50 02/18/25 10:50 Labs: Laboratory Results - last 24 hr 02/18/25 02/18/25 02/18/25 10:50 11:00 12:18 WBC 6.32 RBC 6.04 H Hgb 19.6 H* Hct 59.3 H* MCV 98 H MCH 32.5 MCHC 33.1 RDW 14.9 H Plt Count 118 L MPV 10.7 Immature Gran % 0.5 Neutrophils % 73.4 Lymphocytes % 16.8 Monocytes % 7.3 Eosinophils % 1.4 Basophils % 0.6 Nucleated RBC % 0.0 Absolute Neutrophils 4.64 Absolute Lymphocytes 1.06 L Absolute Monocytes 0.46 Absolute Eosinophils 0.09 Absolute Basophils 0.04 VBG pH 7.35 VBG pCO2 52 H VBG pO2 31 VBG HCO3 29 H VBG Total CO2 24 VBG O2 Saturation 53 VBG Base Excess 3 Sodium 141 Potassium 4.2 Chloride 103 Carbon Dioxide 28.1 Anion Gap 9.9 BUN 16 Creatinine 1.14 Est GFR (CKD-EPI 2021) 62.64 Glucose 161 H Calcium 8.6 Magnesium 1.6 Total Bilirubin 1.10 AST 36 H ALT 32 Alkaline Phosphatase 89 Troponin I 347 H* 343 H* NT-Pro-B Natriuret Pep 99307 H Total Protein 5.9 Albumin 3.3 L Last Vital Signs Temp 98.6 F 02/18/25 10:48 Pulse 68 02/18/25 11:30 Resp 20 02/18/25 11:30 BP 174/111 H 02/18/25 11:30 Pulse Ox 87 L 02/18/25 11:15 VTE Prohylaxis Risk Level: Moderate/High Risk Contraindications: None Prophylaxis: Patient anticoagulated Time Spent Time spent with Patient: >75 minutes Time was spent: preparing to see the patient(eg.review tests), obtaining and/or reviewing separately otained hiistory, ordering medications,tests, procedures, referring, communicating with other health care aid, indepentently interpreting results, counseling the patient and care coordination
[2025-02-18 13:27] LABS: COVID-19 PCR Negative (Negative); RSV PCR Negative (Negative)
[2025-02-18 16:22] LABS: Troponin I 369 ng/L (<54)
[2025-02-18] MEDS: Normal Saline Flush 10 ML SYR IVP (20:51)
[2025-02-18] MEDS: Apixaban 2.5 MG TAB PO (20:51)
[2025-02-19] VITALS (113 sets, daily range): BP systolic 113–163; BP diastolic 81–112; PULSE 43–99; RESP 12–25; TEMP 36.8–37.2; O2SAT 78–93
--- NOTE | 2025-02-19 | DI.US_ITS ---
APPROVED REPORT EXAM: Comprehensive 2D, Doppler, and color-flow Echocardiogram Patient Location: In-Patient Room/Bed: [id number] Systems Mgr: Adrienne Garcia RDCS (AE) Indications: Acute exaerbation CHF Other Information Study Quality: Adequate. Technically limited study due to inability to position patient exam done supine bedside. Conclusion Normal left ventricular chamber size and systolic function. EF is 60 to 65%. There is asymmetric septal hypertrophy Dilated right ventricle. Diastolic septal flattening suggest right ventricular pressure and volume overload Dilated right atrium. Normal left atrial size The aortic valve is trileaflet and sclerotic with mild regurgitation Wall motion Left Ventricle The left ventricle is normal size. The left ventricular systolic function is normal. The left ventricular ejection fraction is within the normal range. Mild basal septal hypertrophy is present. Flattened septum consistent with right ventricular volume and pressure overload. There is no ventricular septal defect visualized. LVEF is 60-65%. Right Ventricle Right ventricle is dilated. Right ventricular systolic function is grossly normal. Atria The left atrium size is normal. The right atrium is mildly dilated The interatrial septum is intact with no evidence for an atrial septal defect. Aortic Valve The Aortic valve is sclerotic. Aortic valve is trileaflet. There is no aortic valvular stenosis. Mild aortic regurgitation. Mitral Valve The mitral valve is normal in structure. No evidence of mitral valve stenosis. Trace mitral regurgitation. Tricuspid Valve The tricuspid valve is normal in structure. There is no tricuspid valve stenosis. Trace tricuspid regurgitation. Unable to assess PA pressure. Unable to get a complete doppler envelope of regurgitation. Pulmonic Valve The pulmonary valve is normal in structure. There is no pulmonic valvular stenosis. There is no pulmonic valvular regurgitation. Great Vessels Aortic root is mildly dilated. The ascending aorta is normal in size. IVC is normal in size and collapses >50% with inspiration. Pericardium There is no pericardial effusion. 2D Dimensions IVSD d PLAX 1.40 cm M: 0.6-1.2 Ao Root d 3.80 cm M: 3.1 - 3.7 LVPW d PLAX 1.21 cm M: 0.6 - 1.2 Ao Asc Diam d 3.42 cm M: 2.6 - 3.4 LVID d PLAX 3.80 cm M: 4.2 - 5.8 LVDs 2.60 cm M: 2.5 - 4.0 LV EF Teichholz 59.4 % FS 30.93 % LV EDV (Teich) 60.5 mL LV ESV (Teich) 24.6 mL M-Mode TAPSE 1.21 cm (M/F) >1.7 Auto EF LV EDV A4C 57.9 mL LV EDV A2C 111.2 mL LV EDV BP 81.6 mL LV ESV A4C 20.4 mL LV ESV A2C 43.8 mL LV ESV BP 30.1 mL LVEF(%) A4C 64.7 % LVEF(%) A2C 60.6 % LVEF(%) BP 63.1 % LV SV A4C 37.4 ml LV SV A2C 67.4 ml LV SV BP 51.5 ml LV CO A4C 3.0 L/min LV CO A2C 5.1 L/min LV CO BP 4.1 L/min HR A4C 81.08 BPM HR A2C 75.76 BPM LV EDV Index (BP) RV Strain Global Peak Long. Strain A4C 9.25 Global Peak Long. Strain A4C FW 7.95 LA Volume LA Length A4C 6.3 cm LA Length A2C 5.5 cm LA Area A4C s 17.60 cm2 LA Area A2C s 14.00 cm2 LA Vol A4C A-L 41.69 mL LA Vol A2C A-L 30.30 mL LA Vol Biplane A-L 38.1 mL LA Vol/BSA A4C A-L LA Vol/BSA A2C A-L LA Vol/BSA BP A-L 22.7 mL/m2 LA Vol A4C MOD 39.0 mL LA Vol A2C MOD 28.7 mL LA Vol BP MOD 35.8 mL RA Volume RA Area A4C 21.8 cm2 RA ESV A4C (A-L) 62.2mL RA Vol/BSA A4C A-L RA Length A4C 6.5 cm RA ESV A4C (MOD) 60.2mL LV Diastology MV E' medial 0.045 (>0.07 m/s) MV E Vmax 0.41 (0.4-1.3 m/s) MV E/E' MED 9.03 (<14) MV A Vmax 1.00 (0.4-1.3 m/s) MV E' lateral 0.067 (>0.1 m/s) E/A Ratio 0.4 MV E/E' LAT 6.11 (<14) MV E' Average 0.056 m/s MV E/E'(average) 7.29 Aortic Valve AoV Vmax 1.36 m/s LVOT Vmax 1.04 m/s AoV Peak Grad 7.4 mmHg LVOT Peak Grad 4.3 mmHg AoV Area (Vmax) 2.75 cm2 LVOT VTI 0.173 m AoV VTI 0.270 m LVOT Mean Grad 2.5 mmHg AoV Mean Herb. 0.98 m/s LVOT SV 62.24 mL AoV Mean Grad 4.4 mmHg LVOT Diam s 2.10 cm AoV Area (VTI) 2.31 cm2 AV Regurg Peak Gr. 7.37 mmHg Velocity Ratio 0.76 Mitral Valve MV DT 206 (160-240 msec) MV Vmax TIPS 0.94 m/s MV Mean Grad 1.2 (<2mmHg) MV VTI 0.175 m Pulmonary Valve PV Vmax 0.67 (0.5-1.5 m/s) RVOT Vmax 0.57 m/s PV Peak Grad 1.8 mmHg RVOT Peak Gr. 1.3 mmHg PV Mean Herb 0.51 m/s RVOT VTI 0.094 m PV Mean Grad 1.1 mmHg RVOT Mean Gr. 0.7 mmHg Tricuspid Valve RA Pressure 3.00 mmHg TR Vmax 0.00 m/s TV S' 0.12 m/s TR Peak Grad 0.0 mmHg RVSP (TR) 0.0 mmHg
[2025-02-19 06:35] LABS: HCT 53.4 % (40.0-50.0); HGB 17.8 g/dL (13.5-17.5); MCH 32.2 pg (27.0-33.0); MCHC 33.3 % (32.0-36.0); MCV 97 fL (80-95); MPV 11.2 fL (8.0-11.0); Platelet Count 110 10^3/uL (130-400); RBC 5.53 10^6/uL (4.36-5.78); RDW 14.4 % (11.8-14.1); RDW-SD 51.7 fL; WBC 6.20 10^3/uL (4.4-10.8)
[2025-02-19 06:47] LABS: Anion Gap 4.8 mmol/L (3-11); BUN 15 mg/dL (9-23); CO2 35.2 mmol/L (20.0-31.0); Calcium 8.9 mg/dL (8.3-10.6); Chloride 102 mmol/L (98-107); Glucose 75 mg/dL (74-106); Potassium 3.8 mmol/L (3.5-5.1); Sodium 142 mmol/L (136-145)
[2025-02-19] MEDS: Tamsulosin 0.4 MG CAPCR PO (08:36)
[2025-02-19] MEDS: Furosemide 40 MG/4 ML VIAL IVP ×2 (08:36→16:05)
[2025-02-19] MEDS: Normal Saline Flush 10 ML SYR IVP ×2 (08:37→20:21)
[2025-02-19] MEDS: Apixaban 2.5 MG TAB PO ×2 (08:37→20:21)
[2025-02-19] MEDS: Rosuvastatin 10 MG TAB PO (08:37)
--- NOTE | 2025-02-19 08:55 | RESPIRATORY ---
Pt has Rhythm POC in room, charged at 96%. Machine is set to highest setting of 5L PULSE DOSE. DME: [employer]. Pt states that at baseline at home he uses 6L at rest and 10L with ambulation. Pt uses POC when in his car and walking from building to building. Pt uses regular continuous home concentrator at 6L when he is home.
[2025-02-19] MEDS: Tiotropium/Olodaterol 10 PUFF INHALER 2 PUFF IH (09:02)
--- NOTE | 2025-02-19 09:03 | W.PULMCC ---
General Date of Service Date of service: 02/19/25 Reason for Admission to ICU: Respiratory failure Recommendations Pulmonary: Assessment: 1. Acute on chronic hypoxemic respiratory failure 2. COPD - Gold class 2 3. CHF exacerbation I&O: Intake & Output 02/16/25 02/17/25 02/18/25 02/19/25 23:59 23:59 23:59 23:59 Intake Total 520.70 / 520.70 Output Total 4275 / 4475 850 / 850 Balance -3754.30 / -3954.30 -850 / -850 Weight 60 kg 55.6 kg Code Status: Resuscitation Status Full Code Subjective Critical and life-threatening events over the past 24 hours: Patient is a 74 yo with a history of COPD, chronic hypoxemic respiratory failure, PE, and CKD who was admitted on 02/18 for acute on chronic hypoxemic respiratory failure. He had worsening dyspnea and LE swelling for 4-5 days prior to admission. Initially required BiPAP, then was transitioned to heated/high flow O2. He was started on IV diuresis. VBG showed pH 7.35, PCO2 52. BNP was > 98773. He uses stiolto and PRN albuterol for COPD management. At baseline he requires 6 L O2 at rest and 10 L with exertion. He is currently on 45L, 49% FiO2 via AIRVO. Diuresed 4.6 L since admission. ROS: [] Most Recent VS/Results Last Vital Signs Temp 37.2 C 02/19/25 03:00 Pulse 76 02/19/25 03:00 Resp 14 02/19/25 02:30 BP 157/106 H 02/19/25 03:00 Pulse Ox 90 L 02/19/25 03:00 Laboratory Results - last 24 hr 02/18/25 02/18/25 02/18/25 10:50 11:00 12:18 WBC 6.32 RBC 6.04 H Hgb 19.6 H* Hct 59.3 H* MCV 98 H MCH 32.5 MCHC 33.1 RDW 14.9 H Plt Count 118 L MPV 10.7 Immature Gran % 0.5 Neutrophils % 73.4 Lymphocytes % 16.8 Monocytes % 7.3 Eosinophils % 1.4 Basophils % 0.6 Nucleated RBC % 0.0 Absolute Neutrophils 4.64 Absolute Lymphocytes 1.06 L Absolute Monocytes 0.46 Absolute Eosinophils 0.09 Absolute Basophils 0.04 VBG pH 7.35 VBG pCO2 52 H VBG pO2 31 VBG HCO3 29 H VBG Total CO2 24 VBG O2 Saturation 53 VBG Base Excess 3 Sodium 141 Potassium 4.2 Chloride 103 Carbon Dioxide 28.1 Anion Gap 9.9 BUN 16 Creatinine 1.14 Est GFR (CKD-EPI 2020) 62.64 Glucose 161 H Calcium 8.6 Magnesium 1.6 Total Bilirubin 1.10 AST 36 H ALT 32 Alkaline Phosphatase 89 Troponin I 347 H* 343 H* NT-Pro-B Natriuret Pep 21630 H Total Protein 5.9 Albumin 3.3 L COVID-19 Source SARS-CoV-2 (PCR) Influenza Type A (PCR) Influenza Type B (PCR) RSV (PCR) 02/18/25 02/18/25 02/19/25 12:40 15:30 05:30 WBC 6.20 RBC 5.53 Hgb 17.8 H Hct 53.4 H MCV 97 H MCH 32.2 MCHC 33.3 RDW 14.4 H Plt Count 110 L MPV 11.2 H Immature Gran % Neutrophils % Lymphocytes % Monocytes % Eosinophils % Basophils % Nucleated RBC % Absolute Neutrophils Absolute Lymphocytes Absolute Monocytes Absolute Eosinophils Absolute Basophils VBG pH VBG pCO2 VBG pO2 VBG HCO3 VBG Total CO2 VBG O2 Saturation VBG Base Excess Sodium 142 Potassium 3.8 Chloride 102 Carbon Dioxide 35.2 H Anion Gap 4.8 BUN 15 Creatinine 1.20 H Est GFR (CKD-EPI 2020) 59.04 Glucose 75 Calcium 8.9 Magnesium Total Bilirubin AST ALT Alkaline Phosphatase Troponin I 369 H* NT-Pro-B Natriuret Pep Total Protein Albumin COVID-19 Source Nasopharynx SARS-CoV-2 (PCR) Negative Influenza Type A (PCR) Negative Influenza Type B (PCR) Negative RSV (PCR) Negative PFT personally reviewed 03/2021: ratio 43, FEV1 66, FVC 110, TLC 112, DLCO 30
--- NOTE | 2025-02-19 10:21 | PDOC.CMIN ---
Date of service: 02/19/25 Time of Service: 10:21 Care Management Initial Assmt Initial Assessment Reason for Hospitalization: COPD exacerbation, CHF exacerbation, acute on chronic respiratory failure Functional Status/Living Situation Patient Presentation: Darrell presented to the ED yesterday with c/o increased shortness of breath, and increased leg swelling for 4-5 days. He is on chronic O2 at 6-10L. He has a history of heart failure, and recently his chlorthalidone was discontinued, this is what is believed to have contributed to his respiratory failure and his lower extremity edema. Darrell was sitting up in the bedside chair when CM met with him today. He was very pleasant, and stated that he was feeling a lot better. He was almost at his O2 baseline, and is really hoping to be discharged tomorrow. Darrell and his Yesi are independent in the community at baseline and he declined the need for any increased supports. 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) Instrumental Activities of Daily Living (ADLs): Independent Medications Medication Management: No Issues/Barriers identified Advance Directives Advance Directives: Do you have an Advance Directive: Y 10/19/23, 09:55 AD On File at [employer] [employer]: Y 10/19/23, 09:55 Date Asked 05/27/23 Today, 03:32 AD Date Reviewed 02/18/25 Today, 03:32 COLST On File at [facility] [employer] [facility] COLST Date Scanned Code Status Resuscitation Status Full Code Insurance Coverage/Financial Issues Insurance: [facility] [id number] Care Team Visit Care Team Role Provider Type Dio Ball MD MD [employer] [employer] [employer] STAFF PHYSICIAN Keena Alejo NP Primary Care Provider NURSE PRACTITIONER Zoltan Sands MD Other Providers [employer] [employer] STAFF PHYSICIAN Scott Payton MD Emergency Provider [employer] [employer] STAFF PHYSICIAN Don Doe MD Admit Provider [employer] [employer] STAFF PHYSICIAN Attending Provider Discharge Potential Discharge Needs: PCP F/U Appt and Other (pulmonology consult) Anticipated Barriers to Discharge: None Identified Patient/Family Education Needs: Review discharge instructions, discuss Ask Me Three Transportation: Private vehicle Plan: Anticipate that Darrell will discharge home with no new services. He will f/u with his PCP and pulmonology and continue per his plan of care. CM will continue to follow closely. Social Determinants of Health Screening Social Determinants of health last assessed in clinic: 02/19/25 Will the Patient Participate in the Screening?: Yes Do you worry about having a steady place to live?: no Problems where you live: no known problems In the past 12 months, have you had to go without electric, gas, oil or water in your home?: no 1. Within the past 12 months, we worried whether our food would run out before we got money to buy more.: Don't know/refused 2. Within the past 12 months, the food we bought just didn't last and we didn't have money to get more.: Don't know/refused Has lack of transportation kept you from medical appointments or from doing things needed for daily living?: no Has anyone in your life made you feel unsafe or unsupported?: no How hard is it for you to pay for the very basics like food, housing, medical care, and heating? Would you say it is:: Not hard at all Do you want help finding or keeping work or a job?: I do not need or want help If for any reason you need help with day-to-day activities such as bathing, preparing meals, shopping, managing finances, etc., do you get the help you need?: I don?t need any help How often do you feel lonely or isolated from those around you?: Never Do you speak a language other than Cuban at home?: No Does the patient want assistance with any of the above?: No PFSH All Active Problems (Updated 02/18/25 @ 11:59 by Scott Payton MD) Acute exacerbation of CHF (congestive heart failure) (Acute) Acute and chronic respiratory failure with hypoxia (Acute) Respiratory failure with hypoxia (Chronic) COPD (chronic obstructive pulmonary disease) (Chronic) Coronary artery disease (Chronic) Bullous emphysema (Chronic) Followed by pulmonary, O2 dependent Weight loss, unintentional (Acute) Secondary erythrocytosis (Acute) History of pulmonary embolism (Chronic ~2020) Oxygen dependent (Chronic) Pulmonary hypertension (Chronic) Peripheral artery disease (Chronic) AAA (abdominal aortic aneurysm) (Chronic) Hypertension (Chronic) 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) CKD (chronic kidney disease) stage 3, GFR 30-59 ml/min (Acute) Chronic anticoagulation (Chronic) History of venous thromboembolism (Chronic) Left leg DVT, PE 2019 BPH w urinary obs/LUTS (Chronic) Hyperlipidemia (Chronic) GERD (gastroesophageal reflux disease) (Chronic) Recurrent ventral hernia (Chronic) Diverticulosis of colon (Chronic) Medical History Left leg DVT (2019) Former cigarette smoker Tubular adenoma of colon Non-sustained ventricular tachycardia Pulmonary embolism (2019) Jensen's esophagus Anxiety Surgical History Status post ORIF of fracture of ankle Right S/P colonoscopy H/O ventral hernia repair Hx of cataract surgery S/P right rotator cuff repair Status post Elida fundoplication Family History Mother Heart disease COPD (chronic obstructive pulmonary disease) Father Diabetes Metastatic primary lung cancer Sister Heart disease Sister Heart disease Brother Heart disease Diabetes Brother Heart disease Son Diabetes Hypertension Son No problems noted. Daughter Uterine cancer Maternal Grandfather No problems noted. Maternal Grandmother No problems noted. Paternal Grandfather No problems noted. Paternal Grandmother No problems noted. 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 Pets and animals: Yes Pets and animals: dog(s) Sexually active: Yes Do you think of yourself as: straight/heterosexual Current gender identity: male What is your relationship status?: How often do you talk on the phone with friends or family?: decline to answer How often do you get together with friends or relatives?: decline to answer How often do you attend taoism or anabaptism services?: decline to answer Do you belong to any clubs or organized social groups?: yes Panel score (0-1 are the most socially isolated patients): 2 What type of physical activity do you participate in: walking Duration: > 90 minutes/day Frequency: daily Rosie/Tenriism: Scientologist Special rosie needs: No Do you feel safe at home: Yes Do you feel safe in your relationship?: Yes Additional Social history: Previously enjoyed bicycling.
--- NOTE | 2025-02-19 12:28 | PUCON_ITS ---
General Date Of Service Date of service: 02/19/25 Time of Service: 12:00 Requesting physician: Dio Ball Reason for Consult: Hypoxia Recommendations: Assessment: 1. Acute on chronic hypoxemic respiratory failure - acute worsening related to pulmonary edema. Chronic hypoxia related to COPD. Currently on 6 L O2 at baseline. Currently on 7 L O2 2. COPD - Gold class 2B - not in exacerbation 3. CHF exacerbation - improved with IV diuresis. Echo pending Recommendations: - agree with IV diuresis. Can likely change to PO tomorrow - follow up on echo results - continue bronchodilators. I do not see a need for systemic steroids or antibiotics from a respiratory standpoint - can transfer out of ICU History of Present Illness Narrative: Patient is a 74 yo with a history of COPD, chronic hypoxemic respiratory failure, PE, and CKD who was admitted on 02/18 for acute on chronic hypoxemic respiratory failure. He had worsening dyspnea and LE swelling for 4-5 days prior to admission. Initially required BiPAP, then was transitioned to heated/high flow O2. He was started on IV diuresis. VBG showed pH 7.35, PCO2 52. BNP was > 63812. He uses stiolto and PRN albuterol for COPD management. At baseline he requires 6 L O2 at rest and 10 L with exertion. He is currently on 7 L O2. Diuresed > 4 L since admission. Dyspnea improved. Denied significant cough. No fevers. LE swelling has improved. ROS: 10 pt ROS negative except as above Family history reviewed Social history reviewed PFS All Active Problems (Updated 02/18/25 @ 11:59 by Scott Payton MD) Acute exacerbation of CHF (congestive heart failure) (Acute) Acute and chronic respiratory failure with hypoxia (Acute) Respiratory failure with hypoxia (Chronic) COPD (chronic obstructive pulmonary disease) (Chronic) Coronary artery disease (Chronic) Bullous emphysema (Chronic) Followed by pulmonary, O2 dependent Weight loss, unintentional (Acute) Secondary erythrocytosis (Acute) History of pulmonary embolism (Chronic ~2019) Oxygen dependent (Chronic) Pulmonary hypertension (Chronic) Peripheral artery disease (Chronic) AAA (abdominal aortic aneurysm) (Chronic) Hypertension (Chronic) 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) CKD (chronic kidney disease) stage 3, GFR 30-59 ml/min (Acute) Chronic anticoagulation (Chronic) History of venous thromboembolism (Chronic) Left leg DVT, PE 2019 BPH w urinary obs/LUTS (Chronic) Hyperlipidemia (Chronic) GERD (gastroesophageal reflux disease) (Chronic) Recurrent ventral hernia (Chronic) Diverticulosis of colon (Chronic) Medical History Left leg DVT (2019) Former cigarette smoker Tubular adenoma of colon Non-sustained ventricular tachycardia Pulmonary embolism (2019) Jensen's esophagus Anxiety Surgical History Status post ORIF of fracture of ankle Right S/P colonoscopy H/O ventral hernia repair Hx of cataract surgery S/P right rotator cuff repair Status post Elida fundoplication Family History Mother Heart disease COPD (chronic obstructive pulmonary disease) Father Diabetes Metastatic primary lung cancer Sister Heart disease Sister Heart disease Brother Heart disease Diabetes Brother Heart disease Son Diabetes Hypertension Son No problems noted. Daughter Uterine cancer Maternal Grandfather No problems noted. Maternal Grandmother No problems noted. Paternal Grandfather No problems noted. Paternal Grandmother No problems noted. 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 Pets and animals: Yes Pets and animals: dog(s) Sexually active: Yes Do you think of yourself as: straight/heterosexual Current gender identity: male What is your relationship status?: How often do you talk on the phone with friends or family?: decline to answer How often do you get together with friends or relatives?: decline to answer How often do you attend samaritan or shinto services?: decline to answer Do you belong to any clubs or organized social groups?: yes Panel score (0-1 are the most socially isolated patients): 2 What type of physical activity do you participate in: walking Duration: > 90 minutes/day Frequency: daily Rosie/Catholic: Sabianist Special rosie needs: No Do you feel safe at home: Yes Do you feel safe in your relationship?: Yes Additional Social history: Previously enjoyed bicycling. Visit Medication and Allergies Active Medications Generic Name Dose Route Start Last Admin Trade Name Freq PRN Reason Stop Dose Admin Albuterol Sulfate 2 puff 02/18/25 14:34 Albuterol Hfa 8 Gm 60 Puff Inh IH Q4H PRN PRN shortness of breath or wheezing Apixaban 2.5 mg 02/18/25 20:00 02/19/25 08:37 Apixaban 2.5 Mg Tab PO 2.5 mg BID LIMA Administration Furosemide 40 mg 02/19/25 08:00 02/19/25 08:36 Furosemide 40 Mg/4 Ml Vial IVP 40 mg BID@0800,1600 LIMA Administration Nitroglycerin/Dextrose 50 mg in 250 mls @ 15 mls/hr 02/18/25 13:00 02/18/25 19:30 IV 0 mcg/min INFUSION LIMA 0 mls/hr Protocol Titration 50 MCG/MIN Omeprazole 20 mg 02/18/25 14:34 Omeprazole 20 Mg Capcr PO BID PRN PRN Polyethylene Glycol 17 gm 02/18/25 14:34 Polyethylene Glycol 3350 17 Gm Packet PO DAILY PRN PRN Constipation Rosuvastatin Calcium 10 mg 02/19/25 08:30 02/19/25 08:37 Rosuvastatin 10 Mg Tab PO 10 mg DAILY LIMA Administration Sodium Chloride 0 ml 02/18/25 14:34 Normal Saline Flush 10 Ml Syr IVP PRN PRN Sodium Chloride 0 ml 02/18/25 20:00 02/19/25 08:37 Normal Saline Flush 10 Ml Syr IVP 20 ml BID LMIA Administration Sodium Chloride 0 ml 02/18/25 14:34 Normal Saline 10 Ml Vial IJ DIRECTED PRN Tamsulosin HCl 0.4 mg 02/19/25 08:30 02/19/25 08:36 Tamsulosin 0.4 Mg Capcr PO 0.4 mg DAILY LIMA Administration Tiotropium [place]/Olodaterol 2 puff 02/19/25 08:30 02/19/25 09:02 Tiotropium/Olodaterol 10 Puff Inhaler IH 2 inh DAILY LIMA Administration Allergies Penicillins Allergy (Unknown, Verified 02/18/25 10:40) unknown amlodipine Adverse Reaction (Verified 02/18/25 10:40) peripheral edema Exam Narrative Exam Narrative: General: alert, no acute distress Head: normocephalic ENT: no stridor, trachea midline CV: normal rate, regular rhythm Respiratory: no wheezing, no crackles, no rhonchi, no prolonged expiration GI: abd soft, non-tender, non-distended Skin: no rashes Extremities: +1 edema, no digital clubbing Psych: normal affect Results Last Vital Signs Temp 36.9 C 02/19/25 08:10 Pulse 61 02/19/25 12:01 Resp 12 02/19/25 12:20 BP 143/112 H 02/19/25 12:01 Pulse Ox 89 L 02/19/25 12:11 Labs 02/19/25 05:30 02/19/25 05:30 Labs: Laboratory Results - last 24 hr 02/18/25 02/18/25 02/18/25 12:18 12:40 15:30 WBC RBC Hgb Hct MCV MCH MCHC RDW Plt Count MPV Sodium Potassium Chloride Carbon Dioxide Anion Gap BUN Creatinine Est GFR (CKD-EPI 2020) Glucose Calcium Troponin I 343 H* 369 H* COVID-19 Source Nasopharynx SARS-CoV-2 (PCR) Negative Influenza Type A (PCR) Negative Influenza Type B (PCR) Negative RSV (PCR) Negative 02/19/25 05:30 WBC 6.20 RBC 5.53 Hgb 17.8 H Hct 53.4 H MCV 97 H MCH 32.2 MCHC 33.3 RDW 14.4 H Plt Count 110 L MPV 11.2 H Sodium 142 Potassium 3.8 Chloride 102 Carbon Dioxide 35.2 H Anion Gap 4.8 BUN 15 Creatinine 1.20 H Est GFR (CKD-EPI 2020) 59.04 Glucose 75 Calcium 8.9 Troponin I COVID-19 Source SARS-CoV-2 (PCR) Influenza Type A (PCR) Influenza Type B (PCR) RSV (PCR) Imaging Chest x-ray: report reviewed and image reviewed
--- NOTE | 2025-02-19 16:25 | PGE_ITS ---
Date of Service Date of service: 02/19/25 Time of Service: 08:00 Assessment and Plan Assessment and plan (1) Acute and chronic respiratory failure with hypoxia: Status: Acute Assessment and plan: - Patient desaturated to low 70s on his baseline 6 L nasal cannula - Was initially placed on BiPAP in the emergency department - On arrival to the ICU he is on 8 L high flow nasal cannula saturating at 88% - Continue to wean oxygen as tolerated with goal SpO2 88 to 92% - Is likely secondary to CHF exacerbation as noted below Feb 19: off high flow, on 7L O2, at baseline. Downgraded to the floor. Appreciate pulm evaluation. (2) Acute exacerbation of CHF (congestive heart failure): Status: Acute Assessment and plan: - Patient has history of heart failure and recently having his chlorthalidone discontinued - This resulted in likely acute on chronic hypoxic respiratory failure as noted above as well as bilateral lower extremity edema - Status post 40 mg IV Lasix in the emergency department; patient has had 1600 mL out since - Will order 40 mg IV Lasix twice daily to begin tomorrow morning - Also started on nitroglycerin in the emergency department to help with afterload, will continue - Will obtain follow-up echocardiogram Feb 19: improving with diuresis, echo read pending (3) Coronary artery disease: Status: Chronic Assessment and plan: - History of coronary artery disease - Continue home statin (4) Bullous emphysema: Status: Chronic Assessment and plan: -History of, likely contributing to patient's significant baseline oxygen requirement - Without acute exacerbation - Continue home inhaler regimen (5) Secondary erythrocytosis: Status: Acute Assessment and plan: - Secondary to bullous emphysema as noted above as well as chronic hypoxic respiratory failure (6) History of pulmonary embolism: Status: Chronic Assessment and plan: - Continue home Eliquis (7) Pulmonary hypertension: Status: Chronic Assessment and plan: - Secondary to bullous emphysema and CHF as noted above Subjective Subjective Interval history since last seen: Mr. Rawls is comfortable in bed, no overnight events, no new complaints. Exam Narrative Exam Narrative: General: This is a pleasant man in no distress HEENT: Normocephalic, atraumatic CV: RRR. BLE +1 pitting edema Resp: CTAB Abd: soft, NTND MSK: voluntary motion x4 Neuro: awake, alert, no focal deficits Objective Last Vital Signs Temp 36.9 C 02/19/25 08:10 Pulse 75 02/19/25 15:20 Resp 22 02/19/25 15:20 BP 132/87 02/19/25 15:01 Pulse Ox 87 L 02/19/25 15:20 Laboratory Results - last 24 hr 02/19/25 05:30 WBC 6.20 RBC 5.53 Hgb 17.8 H Hct 53.4 H MCV 97 H MCH 32.2 MCHC 33.3 RDW 14.4 H Plt Count 110 L MPV 11.2 H Sodium 142 Potassium 3.8 Chloride 102 Carbon Dioxide 35.2 H Anion Gap 4.8 BUN 15 Creatinine 1.20 H Est GFR (CKD-EPI 2020) 59.04 Glucose 75 Calcium 8.9 VTE Prohylaxis Risk Level: Moderate/High Risk Contraindications: None Prophylaxis: Patient anticoagulated Time Spent with Patient Time Spent with Patient: 25-34 minutes Time was spent: preparing to see the patient(eg.review tests), obtaining and/or reviewing separately otained hiistory, ordering medications,tests, procedures, referring, communicating with other health lead caregiver, indepentently interpreting results, counseling the patient and care coordination
--- NOTE | 2025-02-19 16:51 | W.PC.ACHO ---
Registration Status: ADM IN Primary Language: Preferred Language: Tajik ED Information & Data Chief Complaint SOB 02/18/25 11:06 Triage Note Pt reports filling up with 02/18/25 10:42 fluid. Increased edema, difficulty breathing. Has been getting worse over the past 4-5 days. Used to take chlorthalidone, not on this anymore. Reports 5-6 lb weight gain daily. COPD, cyanotic. Medical / Surgical History (Last Reviewed 05/02/24 @ 11:59 by JEANNIE Walters) Left leg DVT (2019) Former cigarette smoker Tubular adenoma of colon Non-sustained ventricular tachycardia Pulmonary embolism (2019) Jensen's esophagus Anxiety (Last Reviewed 05/02/24 @ 11:59 by JEANNIE Walters) Status post ORIF of fracture of ankle S/P colonoscopy H/O ventral hernia repair Hx of cataract surgery S/P right rotator cuff repair Status post Elida fundoplication Most Recent Vital Signs Temperature 36.9 C 02/19/25 08:10 Temperature Source Temporal Artery Scan 02/19/25 08:10 Pulse 75 02/19/25 15:20 Pulse 78 02/19/25 15:20 Respiratory Rate 22 02/19/25 15:20 Respiratory Effort Incrsd Work of Breathing 02/18/25 14:20 Respiratory Depth Normal 02/18/25 14:20 Respiratory Pattern Normal 02/18/25 14:20 Blood Pressure 132/87 02/19/25 15:01 Blood Pressure Mean 99 02/19/25 15:01 Blood Pressure Position Supine 02/18/25 14:20 Pulse Oximetry 87 L 02/19/25 15:20 Oxygen Delivery Method High Flow Nasal Cannula 02/19/25 12:11 Oxygen Flow Rate 7 02/19/25 12:11 Fraction of Inspired Oxygen (FIO2) 44 02/19/25 09:07 Pain Level 0 02/19/25 03:00 Allergies Penicillins Allergy (Unknown, Verified 02/18/25 10:40) unknown amlodipine Adverse Reaction (Verified 02/18/25 10:40) peripheral edema Active Medications Generic Name Dose Route Start Last Admin Trade Name Freq PRN Reason Stop Dose Admin Apixaban 2.5 mg 02/18/25 20:00 02/19/25 08:37 Apixaban 2.5 Mg Tab PO 2.5 mg BID LIMA Administration Furosemide 40 mg 02/19/25 08:00 02/19/25 16:05 Furosemide 40 Mg/4 Ml Vial IVP 40 mg BID@0800,1600 LIMA Administration Nitroglycerin/Dextrose 50 mg in 250 mls @ 15 mls/hr 02/18/25 13:00 02/18/25 19:30 IV 0 mcg/min INFUSION LIMA 0 mls/hr Protocol Titration 50 MCG/MIN Rosuvastatin Calcium 10 mg 02/19/25 08:30 02/19/25 08:37 Rosuvastatin 10 Mg Tab PO 10 mg DAILY LIMA Administration Sodium Chloride 0 ml 02/18/25 20:00 02/19/25 08:37 Normal Saline Flush 10 Ml Syr IVP 20 ml BID LIMA Administration Tamsulosin HCl 0.4 mg 02/19/25 08:30 02/19/25 08:36 Tamsulosin 0.4 Mg Capcr PO 0.4 mg DAILY LIMA Administration Tiotropium Adrian/Olodaterol 2 puff 02/19/25 08:30 02/19/25 09:02 Tiotropium/Olodaterol 10 Puff Inhaler IH 2 inh DAILY LIMA Administration IV IV Catheter Type [Left Forearm Saline Lock ] IV Catheter Gauge [Left 18 Forearm] Diagnostics 02/19/25 02/19/25 Range/Units Unknown 05:30 WBC 6.20 (4.4-10.8) 10^3/uL RBC 5.53 (4.36-5.78) 10^6/uL Hgb 17.8 H (13.5-17.5) g/dL Hct 53.4 H (40.0-50.0) % MCV 97 H (80-95) fL MCH 32.2 (27.0-33.0) pg MCHC 33.3 (32.0-36.0) % RDW 14.4 H (11.8-14.1) % Plt Count 110 L (130-400) 10^3/uL MPV 11.2 H (8.0-11.0) fL ABG Sample Site Pending ABG pH Pending ABG pCO2 Pending ABG pO2 Pending ABG HCO3 Pending ABG Total CO2 Pending ABG O2 Saturation Pending ABG Base Excess Pending Sodium 142 (136-145) mmol/L Potassium 3.8 (3.5-5.1) mmol/L Chloride 102 (98-107) mmol/L Carbon Dioxide 35.2 H (20.0-31.0) mmol/L Anion Gap 4.8 (3-11) mmol/L BUN 15 (9-23) mg/dL Creatinine 1.20 H (0.73-1.18) mg/dL Est GFR (CKD-EPI 2020) 59.04 (mL/min/1.73m2) Glucose 75 (74-106) mg/dL Calcium 8.9 (8.3-10.6) mg/dL Intake and Output - 24 Hour Total 02/18/25 10:35 thru 02/19/25 16:28 Intake Total 1020.70 Output Total 7625 Balance -6604.30 Weight 55.6 kg Intake: IV 120.70 Oral 900 Output: Urine 7625 Other: Urine Color Pale Yellow Urine Appearance Clear Urine Odor Normal # Voids 2 Falls Risk Assessment History of Falls No History 02/18/25 14:20 Contributing Factors Medications 02/18/25 14:20 Ambulatory Aids Independent 02/18/25 14:20 Tubes/Lines With any additional score 02/18/25 14:20 Gait Evaluation No gait disturbance 02/18/25 14:20 Cognition No cognitive impairment 02/18/25 14:20 Fall Total Score 23 02/18/25 14:20 Level of Risk Standard/Low Risk 02/18/25 14:20 Problems (Last Reviewed 05/02/24 @ 11:59 by JEANNIE Walters) Acute exacerbation of CHF (congestive heart failure) (Acute) Acute and chronic respiratory failure with hypoxia (Acute) Coronary artery disease (Chronic) Bullous emphysema (Chronic) Secondary erythrocytosis (Acute) History of pulmonary embolism (Chronic ~2019) Pulmonary hypertension (Chronic) Notes 02/19/25 08:55 Respiratory by Leif Moya Pt has Rhythm POC in room, charged at 96%. Machine is set to highest setting of 5L PULSE DOSE. DME: [employer]. Pt states that at baseline at home he uses 6L at rest and 10L with ambulation. Pt uses POC when in his car and walking from building to building. Pt uses regular continuous home concentrator at 6L when he is home. Initialized on 02/19/25 08:55 - END OF NOTE Attestation Statement: By documenting the first initial, last name, and credentials of the reporting nurse below, both parties acknowledge that all relevant information regarding the patient handoff has been communicated, and that all questions have been addressed to ensure continuity and safety of care. Additional Patient Information/Comments: Patient admitted for increased fluid accumulation and sob due to change of meds. patient sent to ICU due to NITRO drip for HTN, >5000 ml output since yesterday w/ IVP lasix. A&O x4, clear lung sounds, 7L NC at baseline 6-8 at home, NSR on tele, HTN, has since come down some, BLE 1-2+ pitting edema, was 4+ edema, +bs, uses urinal at bedside, independent, does not need alarms, has dentures but they are not here at the hospital at this time, plan is to d/c home tomorrow. Report Received From: Ernesto PROFESSIONAL NURSING ASSISTANT at [id number]
[2025-02-20 00:20] VITALS: O2SAT 90
[2025-02-20 03:21] VITALS: BP 108/80; PULSE 78; RESP 16; TEMP 36.8; O2SAT 91
[2025-02-20 05:50] VITALS: O2SAT 91
--- NOTE | 2025-02-20 06:33 | PGE_ITS ---
Assessment and Plan Assessment and plan (1) Pulmonary hypertension: Status: Chronic (2) Respiratory failure with hypoxia: Status: Chronic Qualifiers: Chronicity: chronic Qualified Code(s): J96.11 - Chronic respiratory failure with hypoxia (3) History of pulmonary embolism: Status: Chronic (4) COPD (chronic obstructive pulmonary disease): Status: Chronic Qualifiers: COPD type: emphysema Emphysema type: centrilobular Qualified Code(s): J43.2 - Centrilobular emphysema (5) Acute exacerbation of CHF (congestive heart failure): Status: Acute General Date Of Service Date of service: 02/20/25 Time of Service: 07:00 Requesting physician: Dio Ball Reason for Consult: Hypoxia Recommendations: Assessment: 1. Acute on chronic hypoxemic respiratory failure - acute worsening related to pulmonary edema. Chronic hypoxia related to COPD. Back to his baseline 6 L O2 requirements 2. COPD - Gold class 2B - not in exacerbation 3. CHF exacerbation - improved with diuresis. 4. Hx pulmonary embolism - unprovoked episode in 03/2019. Bilateral segmental and subsegmental pulmonary emboli at that time 5. Pulmonary hypertension - ddx: WHO groups II, III, or IV. Sleep study in 01/2025 showed an eAHI of 3.2. No significant desaturations on 6 L O2. Has underlying COPD, but not convinced this explains his echo findings. Recommendations: - can cointinue with lasix 20 mg PO daily upon discharge - will arrange for a V:Q scan / pulm HTN workup as outpatient - continue stiolto and PRN albuterol upon discharge - will see in clinic for follow up - I will sign off Discussed with Dr. Ball Subjective Note Note: Patient is a 74 yo with a history of COPD, chronic hypoxemic respiratory failure, PE, and CKD who was admitted on 02/18 for acute on chronic hypoxemic respiratory failure. He had worsening dyspnea and LE swelling for 4-5 days prior to admission. Initially required BiPAP, then was transitioned to heated/high flow O2. He was started on IV diuresis. VBG showed pH 7.35, PCO2 52. BNP was > 455[address]. He uses stiolto and PRN albuterol for COPD management. At baseline he requires 6 L O2 at rest and 10 L with exertion. Doing well this AM. Dyspnea is back to baseline. Oxygen requirments also back to baseline. Has minimal cough. LE swelling has resolved. ROS: 6 pt ROS negative except as above Exam Narrative Exam Narrative: General: alert, no acute distress Head: normocephalic ENT: no stridor, trachea midline CV: normal rate, regular rhythm Respiratory: no wheezing, no crackles, no rhonchi, no prolonged expiration GI: abd soft, non-tender, non-distended Skin: no rashes Extremities: no edema, no digital clubbing Psych: normal affect Objective Last Vital Signs Temp 36.8 C 02/20/25 03:21 Pulse 78 02/20/25 03:21 Resp 16 02/20/25 03:21 BP 108/80 02/20/25 03:21 Pulse Ox 91 L 02/20/25 05:50 Laboratory Results - last 24 hr 02/19/25 02/19/25 05:30 Unknown WBC 6.20 RBC 5.53 Hgb 17.8 H Hct 53.4 H MCV 97 H MCH 32.2 MCHC 33.3 RDW 14.4 H Plt Count 110 L MPV 11.2 H ABG Sample Site Cancelled ABG pH Cancelled ABG pCO2 Cancelled ABG pO2 Cancelled ABG HCO3 Cancelled ABG Total CO2 Cancelled ABG O2 Saturation Cancelled ABG Base Excess Cancelled Oxygen Liter Flow Cancelled FiO2 Cancelled Sodium 142 Potassium 3.8 Chloride 102 Carbon Dioxide 35.2 H Anion Gap 4.8 BUN 15 Creatinine 1.20 H Est GFR (CKD-EPI 2020) 59.04 Glucose 75 Calcium 8.9 Echo 02/19/25: EF 60-65, dilated RV, mild aortic regurg. Results Medications Medications: Active Medications Generic Name Dose Route Start Last Admin Trade Name Freq PRN Reason Stop Dose Admin Albuterol Sulfate 2 puff 02/18/25 14:34 Albuterol Hfa 8 Gm 60 Puff Inh IH Q4H PRN PRN shortness of breath or wheezing Apixaban 2.5 mg 02/18/25 20:00 02/19/25 20:21 Apixaban 2.5 Mg Tab PO 2.5 mg BID LIMA Administration Furosemide 40 mg 02/19/25 08:00 02/19/25 16:05 Furosemide 40 Mg/4 Ml Vial IVP 40 mg BID@0800,1600 LIMA Administration Nitroglycerin/Dextrose 50 mg in 250 mls @ 15 mls/hr 02/18/25 13:00 02/19/25 21:57 IV Infused INFUSION LIMA Titration Protocol 50 MCG/MIN Omeprazole 20 mg 02/20/25 07:30 Omeprazole 20 Mg Capcr PO DAILY@0730 LIMA Polyethylene Glycol 17 gm 02/18/25 14:34 Polyethylene Glycol 3350 17 Gm Packet PO DAILY PRN PRN Constipation Rosuvastatin Calcium 10 mg 02/19/25 08:30 02/19/25 08:37 Rosuvastatin 10 Mg Tab PO 10 mg DAILY LIMA Administration Sodium Chloride 0 ml 02/18/25 14:34 Normal Saline Flush 10 Ml Syr IVP PRN PRN Sodium Chloride 0 ml 02/18/25 20:00 02/19/25 20:21 Normal Saline Flush 10 Ml Syr IVP 10 ml BID LIMA Administration Sodium Chloride 0 ml 02/18/25 14:34 Normal Saline 10 Ml Vial IJ DIRECTED PRN Tamsulosin HCl 0.4 mg 02/19/25 08:30 02/19/25 08:36 Tamsulosin 0.4 Mg Capcr PO 0.4 mg DAILY LIMA Administration Tiotropium [place]/Olodaterol 2 puff 02/19/25 08:30 02/19/25 09:02 Tiotropium/Olodaterol 10 Puff Inhaler IH 2 inh DAILY LIMA Administration Allergies Penicillins Allergy (Unknown, Verified 02/18/25 10:40) unknown amlodipine Adverse Reaction (Verified 02/18/25 10:40) peripheral edema Labs 02/19/25 05:30 02/19/25 05:30 Labs: Laboratory Tests Range/Units 02/18/25 02/18/25 02/18/25 10:50 11:00 12:18 WBC (4.4-10.8) 10^3/uL 6.32 RBC (4.36-5.78) 10^6/uL 6.04 H Hgb (13.5-17.5) g/dL 19.6 H* Hct (40.0-50.0) % 59.3 H* MCV (80-95) fL 98 H MCH (27.0-33.0) pg 32.5 MCHC (32.0-36.0) % 33.1 RDW (11.8-14.1) % 14.9 H Plt Count (130-400) 10^3/uL 118 L MPV (8.0-11.0) fL 10.7 Immature Gran % % 0.5 Neutrophils % % 73.4 Lymphocytes % % 16.8 Monocytes % % 7.3 Eosinophils % % 1.4 Basophils % % 0.6 Nucleated RBC % (0.0-0.3) % 0.0 Absolute Neutrophils (1.2-6.7) 10^3/uL 4.64 Absolute Lymphocytes (1.2-3.4) 10^3/uL 1.06 L Absolute Monocytes (0.1-0.8) 10^3/uL 0.46 Absolute Eosinophils (0.0-0.7) 10^3/uL 0.09 Absolute Basophils (0.0-0.2) 10^3/uL 0.04 ABG Sample Site ABG pH ABG pCO2 ABG pO2 ABG HCO3 ABG Total CO2 ABG O2 Saturation ABG Base Excess VBG pH (7.31-7.41) 7.35 VBG pCO2 (41-51) mmHg 52 H VBG pO2 mmHg 31 VBG HCO3 (23-28) mmol/L 29 H VBG Total CO2 (24-29) mmol/L 24 VBG O2 Saturation % 53 VBG Base Excess (-2-3) mmol/L 3 Oxygen Liter Flow FiO2 Sodium (136-145) mmol/L 141 Potassium (3.5-5.1) mmol/L 4.2 Chloride (98-107) mmol/L 103 Carbon Dioxide (20.0-31.0) mmol/L 28.1 Anion Gap (3-11) mmol/L 9.9 BUN (9-23) mg/dL 16 Creatinine (0.73-1.18) mg/dL 1.14 Est GFR (CKD-EPI 2020) (mL/min/1.73m2) 62.64 Glucose (74-106) mg/dL 161 H Calcium (8.3-10.6) mg/dL 8.6 Magnesium (1.6-2.6) mg/dL 1.6 Total Bilirubin (0.2-1.2) mg/dL 1.10 AST (<34) U/L 36 H ALT (10-49) U/L 32 Alkaline Phosphatase (46-116) U/L 89 Troponin I (<54) ng/L 347 H* 343 H* NT-Pro-B Natriuret Pep (<300) pg/mL 67613 H Total Protein (5.7-8.2) g/dL 5.9 Albumin (3.4-5.0) g/dL 3.3 L COVID-19 Source SARS-CoV-2 (PCR) (Negative) Influenza Type A (PCR) (Negative) Influenza Type B (PCR) (Negative) RSV (PCR) (Negative) Range/Units 02/18/25 02/18/25 02/19/25 12:40 15:30 05:30 WBC (4.4-10.8) 10^3/uL 6.20 RBC (4.36-5.78) 10^6/uL 5.53 Hgb (13.5-17.5) g/dL 17.8 H Hct (40.0-50.0) % 53.4 H MCV (80-95) fL 97 H MCH (27.0-33.0) pg 32.2 MCHC (32.0-36.0) % 33.3 RDW (11.8-14.1) % 14.4 H Plt Count (130-400) 10^3/uL 110 L MPV (8.0-11.0) fL 11.2 H Immature Gran % % Neutrophils % % Lymphocytes % % Monocytes % % Eosinophils % % Basophils % % Nucleated RBC % (0.0-0.3) % Absolute Neutrophils (1.2-6.7) 10^3/uL Absolute Lymphocytes (1.2-3.4) 10^3/uL Absolute Monocytes (0.1-0.8) 10^3/uL Absolute Eosinophils (0.0-0.7) 10^3/uL Absolute Basophils (0.0-0.2) 10^3/uL ABG Sample Site ABG pH ABG pCO2 ABG pO2 ABG HCO3 ABG Total CO2 ABG O2 Saturation ABG Base Excess VBG pH (7.31-7.41) VBG pCO2 (41-51) mmHg VBG pO2 mmHg VBG HCO3 (23-28) mmol/L VBG Total CO2 (24-29) mmol/L VBG O2 Saturation % VBG Base Excess (-2-3) mmol/L Oxygen Liter Flow FiO2 Sodium (136-145) mmol/L 142 Potassium (3.5-5.1) mmol/L 3.8 Chloride (98-107) mmol/L 102 Carbon Dioxide (20.0-31.0) mmol/L 35.2 H Anion Gap (3-11) mmol/L 4.8 BUN (9-23) mg/dL 15 Creatinine (0.73-1.18) mg/dL 1.20 H Est GFR (CKD-EPI 2020) (mL/min/1.73m2) 59.04 Glucose (74-106) mg/dL 75 Calcium (8.3-10.6) mg/dL 8.9 Magnesium (1.6-2.6) mg/dL Total Bilirubin (0.2-1.2) mg/dL AST (<34) U/L ALT (10-49) U/L Alkaline Phosphatase (46-116) U/L Troponin I (<54) ng/L 369 H* NT-Pro-B Natriuret Pep (<300) pg/mL Total Protein (5.7-8.2) g/dL Albumin (3.4-5.0) g/dL COVID-19 Source Nasopharynx SARS-CoV-2 (PCR) (Negative) Negative Influenza Type A (PCR) (Negative) Negative Influenza Type B (PCR) (Negative) Negative RSV (PCR) (Negative) Negative Range/Units 02/19/25 Unknown WBC (4.4-10.8) 10^3/uL RBC (4.36-5.78) 10^6/uL Hgb (13.5-17.5) g/dL Hct (40.0-50.0) % MCV (80-95) fL MCH (27.0-33.0) pg MCHC (32.0-36.0) % RDW (11.8-14.1) % Plt Count (130-400) 10^3/uL MPV (8.0-11.0) fL Immature Gran % % Neutrophils % % Lymphocytes % % Monocytes % % Eosinophils % % Basophils % % Nucleated RBC % (0.0-0.3) % Absolute Neutrophils (1.2-6.7) 10^3/uL Absolute Lymphocytes (1.2-3.4) 10^3/uL Absolute Monocytes (0.1-0.8) 10^3/uL Absolute Eosinophils (0.0-0.7) 10^3/uL Absolute Basophils (0.0-0.2) 10^3/uL ABG Sample Site Cancelled ABG pH Cancelled ABG pCO2 Cancelled ABG pO2 Cancelled ABG HCO3 Cancelled ABG Total CO2 Cancelled ABG O2 Saturation Cancelled ABG Base Excess Cancelled VBG pH (7.31-7.41) VBG pCO2 (41-51) mmHg VBG pO2 mmHg VBG HCO3 (23-28) mmol/L VBG Total CO2 (24-29) mmol/L VBG O2 Saturation % VBG Base Excess (-2-3) mmol/L Oxygen Liter Flow Cancelled FiO2 Cancelled Sodium (136-145) mmol/L Potassium (3.5-5.1) mmol/L Chloride (98-107) mmol/L Carbon Dioxide (20.0-31.0) mmol/L Anion Gap (3-11) mmol/L BUN (9-23) mg/dL Creatinine (0.73-1.18) mg/dL Est GFR (CKD-EPI 2020) (mL/min/1.73m2) Glucose (74-106) mg/dL Calcium (8.3-10.6) mg/dL Magnesium (1.6-2.6) mg/dL Total Bilirubin (0.2-1.2) mg/dL AST (<34) U/L ALT (10-49) U/L Alkaline Phosphatase (46-116) U/L Troponin I (<54) ng/L NT-Pro-B Natriuret Pep (<300) pg/mL Total Protein (5.7-8.2) g/dL Albumin (3.4-5.0) g/dL COVID-19 Source SARS-CoV-2 (PCR) (Negative) Influenza Type A (PCR) (Negative) Influenza Type B (PCR) (Negative) RSV (PCR) (Negative) Imaging Chest x-ray: report reviewed and image reviewed
[2025-02-20] MEDS: Omeprazole 20 MG CAPCR PO (07:31)
[2025-02-20] MEDS: Rosuvastatin 10 MG TAB PO (07:31)
[2025-02-20] MEDS: Normal Saline Flush 10 ML SYR IVP (07:31)
[2025-02-20] MEDS: Furosemide 40 MG/4 ML VIAL IVP (07:31)
[2025-02-20] MEDS: Apixaban 2.5 MG TAB PO (07:31)
[2025-02-20] MEDS: Tamsulosin 0.4 MG CAPCR PO (07:31)
[2025-02-20 08:00] VITALS: BP 119/73; PULSE 71; RESP 16; TEMP 36.6; O2SAT 90
[2025-02-20] MEDS: Tiotropium/Olodaterol 10 PUFF INHALER 2 PUFF IH (08:12)
[2025-02-20 08:14] VITALS: O2SAT 90
[2025-02-20 11:15] VITALS: BP 103/65; PULSE 77; RESP 16; TEMP 36.9; O2SAT 89
--- NOTE | 2025-02-20 11:35 | DSE_ITS ---
Date of service: 02/20/25 Time of Service: 08:00 DS: Diagnosis Discharge Diagnosis (1) Respiratory failure with hypoxia: Status: Chronic Asessment and Plan: On arrival, SpO2 in low 70's on baseline 6L O2 On bipap in ED Admitted to ICU, on HFNC 8L Goal 88-92% Exacerbation of COPD vs CHF exacerbation Much improved by Feb 19, persisting at baseline for discharge (2) Acute exacerbation of CHF (congestive heart failure): Status: Resolved Asessment and Plan: History of HF, recent discontinuation of chlorthalidone Acute respiratory failure and BLE edema, CHF vs COPD exacerbation vs both Diuresed furosemide 40 IV in ED with UO 1600 Continuing scheduled diuresis Echo showing dilated right heart chambers with diastolic septal flattening. EF 60-65% Outpatient followup, focus on pulmonary hypertension Appreciate pulmonology consult and care (3) Pulmonary hypertension: Status: Chronic Asessment and Plan: Reportedly secondary to bullous emphysema Outpatient followup as above (4) History of pulmonary embolism: Status: Chronic Asessment and Plan: Continue home DOAC (5) COPD (chronic obstructive pulmonary disease): Status: Chronic Asessment and Plan: Continue home regimen, outpatient followup Discharge Plan Disposition Patient Disposition: Home Condition: Improving Discharge Details Reason For Visit: Acute Exacerbation CHF,Acute on Chron Hypox Resp F Admit Date/Time: 02/18/25 13:12 Admit Provider: Don Doe Attending Provider: Don Doe Primary Care Provider: Yesenia Willson Hospital Course Hospital Course: Darrell Rawls is a 74 year old man presenting February 18 with shortness of breath. He was admitted for exacerbation of right heart failure, initially requiring ICU care for noninvasive ventilation. Echo showed worsening right heart failure. He improved with diuresis and is now on his baseline oxygen 6- 7L. Additional workup of his right-sided heart disease will be managed in the outpatient setting; he may need right heart catheterization in the near future. He is safe to discharge home without services at this time, continuing need for 6-10L oxygen at home. Home Meds and New Rx's Prescriptions: New furosemide [Lasix] 20 mg tablet 20 mg PO DAILY Qty: 30 3RF Continued rosuvastatin 10 mg tablet 10 mg PO DAILY Qty: 90 3RF Eliquis 2.5 mg tablet 2.5 mg PO BID Qty: 180 3RF tamsulosin 0.4 mg capsule 0.4 mg PO DAILY Qty: 90 3RF omeprazole 20 mg capsule,delayed release(DR/EC) 20 mg PO BID PRN albuterol sulfate 90 mcg/actuation HFA aerosol inhaler 2 puff inhalation Q4H PRN (Reason: shortness of breath or wheezing) Qty: 8.5 12RF Stiolto Respimat 2.5-2.5 mcg/actuation mist 2 puff inhalation DAILY Qty: 4 12RF Discharge Instructions Instructions: Pulmonary hypertension, Heart Failure, Adult (DC) Stand Alone Forms: Portal Information, Nursing Discharge Form Referrals: [facility] [Outside] Referral Note: PCP office will give you a call to set up a follow up appointment. If you don't hear from them, please give them a call. Zoltan Sands MD [ [facility] STAFF PHYSICIAN, Pulmonology] Referral Note: Office will contact you to set up a follow up appointment. Activity:: Activity as Tolerated Equipment/Supplies:: No Equipment Needed Diet:: As Tolerated Discharge Orders Discharge Orders: Discharge Order (Routine); Ordered 02/20/25 Ordered By: Dio Ball Discharge Data Discharge Date/Time-TO BE ENTERED AT DEPARTURE: 02/20/25 13:10 DS: Summary Time Spent with Patient providing and/or coordinating discharge services: Less than 30 minutes Status at Discharge Functional status at discharge: independent ambulation Overall status at discharge: patient is back to baseline Mental Status: mental status grossly normal Speech and Movement: speech and movement normal Mood: congruent mood Affect: normal affect Quality:SDOH Health Related Social Needs: Health related social needs details none Exam Psych Mental Status: mental status grossly normal Speech and Movement: speech and movement normal Mood: congruent mood Affect: normal affect DS: Data Vitals/I&O Vitals and I&O: Vital Signs Temperature 36.9 C 02/20/25 11:15 Temperature Source Temporal Artery Scan 02/20/25 11:15 Pulse 77 02/20/25 11:15 Pulse 78 02/19/25 15:20 Respiratory Rate 16 02/20/25 11:15 Respiratory Effort Incrsd Work of Breathing 02/18/25 14:20 Respiratory Depth Normal 02/18/25 14:20 Respiratory Pattern Normal 02/18/25 14:20 Blood Pressure 103/65 02/20/25 11:15 Blood Pressure Mean 77 02/20/25 11:15 Blood Pressure Position Supine 02/18/25 14:20 Pulse Oximetry 89 L 02/20/25 11:15 Oxygen Delivery Method Nasal Cannula 02/20/25 11:15 Oxygen Flow Rate 6 02/20/25 11:15 Fraction of Inspired Oxygen (FIO2) 44 02/19/25 09:07 Pain Level 0 02/20/25 08:00 Intake & Output 02/19/25 02/19/25 02/20/25 11:59 23:59 11:59 Intake Total 500 / 510 10 / 510 340 / 340 Output Total 1850 / 5350 3500 / 5350 1220 / 1220 Balance -1350 / -4840 -3490 / -4840 -880 / -880 Weight 55.6 kg Intake: IV Oral 500 / 500 340 / 340 Output: Urine 1850 / 5350 3500 / 5350 1220 / 1220 Other: Urine Color Yellow Yellow Yellow Urine Appearance Clear Clear Clear Urine Odor None Normal Strong Comment pt voids in urinal. Data Completed and Pending Pending Labs at Discharge: 02/18/25 02/18/25 02/18/25 10:50 11:00 12:18 WBC 6.32 RBC 6.04 H Hgb 19.6 H* Hct 59.3 H* MCV 98 H MCH 32.5 MCHC 33.1 RDW 14.9 H Plt Count 118 L MPV 10.7 Immature Gran % 0.5 Neutrophils % 73.4 Lymphocytes % 16.8 Monocytes % 7.3 Eosinophils % 1.4 Basophils % 0.6 Nucleated RBC % 0.0 Absolute Neutrophils 4.64 Absolute Lymphocytes 1.06 L Absolute Monocytes 0.46 Absolute Eosinophils 0.09 Absolute Basophils 0.04 ABG Sample Site ABG pH ABG pCO2 ABG pO2 ABG HCO3 ABG Total CO2 ABG O2 Saturation ABG Base Excess VBG pH 7.35 VBG pCO2 52 H VBG pO2 31 VBG HCO3 29 H VBG Total CO2 24 VBG O2 Saturation 53 VBG Base Excess 3 Oxygen Liter Flow FiO2 Sodium 141 Potassium 4.2 Chloride 103 Carbon Dioxide 28.1 Anion Gap 9.9 BUN 16 Creatinine 1.14 Est GFR (CKD-EPI 2020) 62.64 Glucose 161 H Calcium 8.6 Magnesium 1.6 Total Bilirubin 1.10 AST 36 H ALT 32 Alkaline Phosphatase 89 Troponin I 347 H* 343 H* NT-Pro-B Natriuret Pep 87957 H Total Protein 5.9 Albumin 3.3 L COVID-19 Source SARS-CoV-2 (PCR) Influenza Type A (PCR) Influenza Type B (PCR) RSV (PCR) 02/18/25 02/18/25 02/19/25 12:40 15:30 05:30 WBC 6.20 RBC 5.53 Hgb 17.8 H Hct 53.4 H MCV 97 H MCH 32.2 MCHC 33.3 RDW 14.4 H Plt Count 110 L MPV 11.2 H Immature Gran % Neutrophils % Lymphocytes % Monocytes % Eosinophils % Basophils % Nucleated RBC % Absolute Neutrophils Absolute Lymphocytes Absolute Monocytes Absolute Eosinophils Absolute Basophils ABG Sample Site ABG pH ABG pCO2 ABG pO2 ABG HCO3 ABG Total CO2 ABG O2 Saturation ABG Base Excess VBG pH VBG pCO2 VBG pO2 VBG HCO3 VBG Total CO2 VBG O2 Saturation VBG Base Excess Oxygen Liter Flow FiO2 Sodium 142 Potassium 3.8 Chloride 102 Carbon Dioxide 35.2 H Anion Gap 4.8 BUN 15 Creatinine 1.20 H Est GFR (CKD-EPI 2020) 59.04 Glucose 75 Calcium 8.9 Magnesium Total Bilirubin AST ALT Alkaline Phosphatase Troponin I 369 H* NT-Pro-B Natriuret Pep Total Protein Albumin COVID-19 Source Nasopharynx SARS-CoV-2 (PCR) Negative Influenza Type A (PCR) Negative Influenza Type B (PCR) Negative RSV (PCR) Negative 02/19/25 Unknown WBC RBC Hgb Hct MCV MCH MCHC RDW Plt Count MPV Immature Gran % Neutrophils % Lymphocytes % Monocytes % Eosinophils % Basophils % Nucleated RBC % Absolute Neutrophils Absolute Lymphocytes Absolute Monocytes Absolute Eosinophils Absolute Basophils ABG Sample Site Cancelled ABG pH Cancelled ABG pCO2 Cancelled ABG pO2 Cancelled ABG HCO3 Cancelled ABG Total CO2 Cancelled ABG O2 Saturation Cancelled ABG Base Excess Cancelled VBG pH VBG pCO2 VBG pO2 VBG HCO3 VBG Total CO2 VBG O2 Saturation VBG Base Excess Oxygen Liter Flow Cancelled FiO2 Cancelled Sodium Potassium Chloride Carbon Dioxide Anion Gap BUN Creatinine Est GFR (CKD-EPI 2020) Glucose Calcium Magnesium Total Bilirubin AST ALT Alkaline Phosphatase Troponin I NT-Pro-B Natriuret Pep Total Protein Albumin COVID-19 Source SARS-CoV-2 (PCR) Influenza Type A (PCR) Influenza Type B (PCR) RSV (PCR) 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) CKD (chronic kidney disease) stage 3, GFR 30-59 ml/min (Acute) Chronic anticoagulation (Chronic) History of venous thromboembolism (Chronic) Left leg DVT, PE 2019 BPH w urinary obs/LUTS (Chronic) Hyperlipidemia (Chronic) GERD (gastroesophageal reflux disease) (Chronic) Recurrent ventral hernia (Chronic) Diverticulosis of colon (Chronic) Medical History Left leg DVT (2019) Former cigarette smoker Tubular adenoma of colon Non-sustained ventricular tachycardia Pulmonary embolism (2019) Jensen's esophagus Anxiety Surgical History Status post ORIF of fracture of ankle Right S/P colonoscopy H/O ventral hernia repair Hx of cataract surgery S/P right rotator cuff repair Status post Elida fundoplication Family History Mother Heart disease COPD (chronic obstructive pulmonary disease) Father Diabetes Metastatic primary lung cancer Sister Heart disease Sister Heart disease Brother Heart disease Diabetes Brother Heart disease Son Diabetes Hypertension Son No problems noted. Daughter Uterine cancer Maternal Grandfather No problems noted. Maternal Grandmother No problems noted. Paternal Grandfather No problems noted. Paternal Grandmother No problems noted. 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 Pets and animals: Yes Pets and animals: dog(s) Sexually active: Yes Do you think of yourself as: straight/heterosexual Current gender identity: male What is your relationship status?: How often do you talk on the phone with friends or family?: decline to answer How often do you get together with friends or relatives?: decline to answer How often do you attend hindu or roman catholic services?: decline to answer Do you belong to any clubs or organized social groups?: yes Panel score (0-1 are the most socially isolated patients): 2 What type of physical activity do you participate in: walking Duration: > 90 minutes/day Frequency: daily Rosie/Samaritan: Faith Special rosie needs: No Do you feel safe at home: Yes Do you feel safe in your relationship?: Yes Additional Social history: Previously enjoyed bicycling. Time Spent with Patient Time Spent with Patient: <45 minutes Time was spent: preparing to see the patient(eg.review tests), obtaining and/or reviewing separately otained hiistory, ordering medications,tests, procedures, referring, communicating with other health career development director, indepentently interpreting results, counseling the patient and care coordination
--- NOTE | 2025-02-20 12:25 | PDOC.CMDIS ---
Date of service: 02/20/25 Time of Service: 12:25 LACE Index Scoring Tool Questions: Length of Stay (in days): 2 Was the patient admitted via the E.D.?: Yes Comorbidities: Congestive Heart Failure, Chronic Pulmonary Disease and Liver or Renal Disease E.D. Visits: 1 Answers: Total Score: 11 Risk of Readmission: High Risk Care Management Discharge Plan Reason for Hospitalization: CHF and COPD exacerbations Discharge Plan: Darrell is discharged today with no new home care services. He is discharged on furosemide, and this was verifed that his copay is $0 and is being covered under his Medicare benefit. Darrell was happy with that. He will f/u with his PCP and with his specialists and continue per his plan of care. Darrell will transport home with his . Patient/Family Education Needs: Review of discharge instructions, activity, limitations SDOH Health Related Social Needs: Health related social needs details none
--- NOTE | 2025-02-20 13:21 | CHAPLAIN ---
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 He said he didn't recognize too many of the housekeepers. He retired in the summer of .
== END 2025-02-20 13:10 | disposition home or self-care (01) | DRG 291 ==
LOC: ER 11:59 → ICU 14:17 → MS 02-19 16:36
PROVIDERS: Admitting Provider Family Medicine; Emergency Provider Student in an Organized Health Care Education/Training Program; PCP Occupational Therapist; Responsible Provider Family Medicine; Visit Provider Family Medicine
DX: I13.0 Hypertensive heart and chronic kidney disease with heart failure and stage 1 through stage 4 chronic kidney disease, or unspecified chronic kidney disease (principal); J96.21 Acute and chronic respiratory failure with hypoxia; I25.10 Atherosclerotic heart disease of native coronary artery without angina pectoris; D75.1 Secondary polycythemia; Z86.711 Personal history of pulmonary embolism; I27.20 Pulmonary hypertension, unspecified; J43.2 Centrilobular emphysema; I50.9 Heart failure, unspecified; N18.30 Chronic kidney disease, stage 3 unspecified; Z99.81 Dependence on supplemental oxygen; I73.9 Peripheral vascular disease, unspecified; Z79.01 Long term (current) use of anticoagulants; K57.30 Diverticulosis of large intestine without perforation or abscess without bleeding; K21.9 Gastro-esophageal reflux disease without esophagitis; Z86.718 Personal history of other venous thrombosis and embolism; Z87.891 Personal history of nicotine dependence; I50.813 Acute on chronic right heart failure
CPT/HCPCS: 00123; 36415; 80048; 80053; 82805; 85027; 87637; 93005; 94640; 96365; 96375; 99285; 99291; 71045; 83735; 83880; 84484; 85025; 93010; 93306; 94660; 94664; 94760; 99223; 99232; 99238; J1938; J2305

== ENCOUNTER 2025-03-10 21:57 | Emergency (ER) | payer OTHER, SELFPAY ==
[2025-03-10] VITALS (62 sets, daily range): BP systolic 120–162; BP diastolic 86–114; PULSE 64–104; RESP 12–23; TEMP 36.1; O2SAT 84–100
--- NOTE | 2025-03-10 21:30 | RT.EKG_ITS ---
APPROVED REPORT Exam: Resting ECG Reason for Exam: SOB Patient Location: E HR:91 bpm ECG Measurements Heart Rate 91 AXIS CO 169 P 68 QRSd 103 QRS 143 QT 411 T -69 QTc 504 Conclusion Sinus rhythm...normal P axis, V-rate 60- 99 Ventricular premature complex...V complex w/ short R-R interval Probable left atrial enlargement...P >50mS, <-0.10mV V1 Right ventricular hypertrophy...prominent R or R' w/ RAD or JANICE Inferior infarct, age indeterminate...Q>35mS, T neg, II III aVF Abnormal T, consider ischemia, anterior leads...T <-0.20mV, V2-V4 Prolonged QT interval...QTc >500mS NSR at 91 w/ PVC Right [place] Prolong QTc T wave changes in V3 - V6 changed compared to 02/18/25 but similar in appearance compared to 11/25/2023
--- NOTE | 2025-03-10 22:00 | DI.RAD_ITS ---
Exam(s) XR CHEST 2V PA LATERAL EXAM: XR CHEST 2V PA LATERAL CLINICAL HISTORY: SOB TECHNIQUE: 2D digital imaging was performed. Two views. COMPARISON: CR,XR XR CHEST 2V PA LATERAL from 10/17/2023 CR XR PORTABLE CHEST AP from 02/18/2025 FINDINGS: HEART: Normal size. Aorta: Not dilated. PULMONARY VASCULATURE: Normal. MEDIASTINUM: Unremarkable. LUNGS: Severe emphysematous changes again noted in the upper lobes. There underlying chronic interstitial changes, greater at the lower lung cade. There are increased densities at the left lower lobe which appear new compared with previous chest x-ray which could represent atelectasis versus infiltrate.. PLEURAL SPACE: No pleural effusion or pneumothorax. BONE:Unremarkable for age. SOFT TISSUES: Unremarkable. IMPRESSION: Left basilar atelectasis versus infiltrate. Severe underlying emphysematous and fibrotic changes. The preliminary [facility] report was reviewed. DATA REPOSITORY: RADIATION DOSE DELIVERED:
--- NOTE | 2025-03-10 22:02 | W.ED.GENAD ---
Discharge Plan Disposition Patient Disposition: Transfer-Acute Inpatient Care Specific Acute Inpt Facility: Other Condition: Stable Discharge Details Clinical Impression: ACS (acute coronary syndrome) Primary Care Provider: Yesenia Willson ED Provider: Turner Chester and New Rx's Prescriptions: No Action rosuvastatin 10 mg tablet 10 mg PO DAILY Qty: 90 3RF Eliquis 2.5 mg tablet 2.5 mg PO BID Qty: 180 3RF tamsulosin 0.4 mg capsule 0.4 mg PO DAILY Qty: 90 3RF omeprazole 20 mg capsule,delayed release(DR/EC) 20 mg PO BID PRN albuterol sulfate 90 mcg/actuation HFA aerosol inhaler 2 puff inhalation Q4H PRN (Reason: shortness of breath or wheezing) Qty: 8.5 12RF Stiolto Respimat 2.5-2.5 mcg/actuation mist 2 puff inhalation DAILY Qty: 4 12RF furosemide [Lasix] 20 mg tablet 20 mg PO DAILY Qty: 30 3RF HPI General Mode of arrival: EMS. Date/Time Provider Initiated Documentation: 03/10/25 22:02. Limitations to Documentation: no limitations. Information obtained by: patient, RN notes reviewed and old records reviewed. HPI Narrative: Patient presents to ED by ambulance with complaint of some increase shortness of breath, feeling dizzy and weak with exertion. Patient was admitted here at the end of January with CHF that responded to diuretics. He had been taken off HCTZ prior to that because of low blood pressure. He was discharged home on furosemide which he is still taking. He has been fine and was actually seen in the pulmonary clinic here on the . His ECHO during admission showed normal LV function and size but dilated right ventricle/atrium. He is being worked up now for presumed pulmonary HTN. He does have hx of DVT and is on Eliquis. He was fine until this morning when he noticed some increased SOB as well as weakness and dizziness with exertion. He does have a new cough as of today. He denies any fever, URI symptoms, chest pain/tightness, leg swelling. He is on oxygen at baseline 6L at rest and 10L with exertion though he does not typically bother with that and just manages with his baseline oxygen. 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 Related Data Home Medications ?Medication ?Instructions ?Recorded ?Confirmed apixaban 2.5 mg tablet (Eliquis) 2.5 mg PO BID #180 tabs 09/19/23 03/05/25 tiotropium 2.5 mcg-olodaterol 2.5 2 puff inhalation DAILY #4 grams 12/26/23 03/05/25 mcg/actuation mist for inhalation (Stiolto Respimat) tamsulosin 0.4 mg capsule 0.4 mg PO DAILY #90 caps 02/03/24 03/05/25 rosuvastatin 10 mg tablet 10 mg PO DAILY #90 tabs 03/15/24 03/05/25 albuterol sulfate 90 mcg/actuation 2 puff inhalation Q4H PRN 07/10/24 03/05/25 aerosol inhaler shortness of breath or wheezing #8.5 grams omeprazole 20 mg capsule,delayed 20 mg PO BID PRN 07/10/24 03/05/25 release furosemide 20 mg tablet (Lasix) 20 mg PO DAILY #30 tabs 02/20/25 03/05/25 Previous Rx's ?Medication ?Instructions ?Recorded apixaban 2.5 mg tablet (Eliquis) 2.5 mg PO BID #180 tabs 09/19/23 tiotropium 2.5 mcg-olodaterol 2.5 2 puff inhalation DAILY #4 grams 12/26/23 mcg/actuation mist for inhalation (Stiolto Respimat) tamsulosin 0.4 mg capsule 0.4 mg PO DAILY #90 caps 02/03/24 rosuvastatin 10 mg tablet 10 mg PO DAILY #90 tabs 03/15/24 albuterol sulfate 90 mcg/actuation 2 puff inhalation Q4H PRN 07/10/24 aerosol inhaler shortness of breath or wheezing #8.5 grams furosemide 20 mg tablet (Lasix) 20 mg PO DAILY #30 tabs 02/20/25 Allergies Allergy/AdvReac Type Severity Reaction Status Date / Time Penicillins Allergy Unknown unknown Verified 03/05/25 08:35 amlodipine AdvReac peripheral Verified 03/05/25 08:35 edema General HE: 2 Exam Narrative Exam Narrative: Const: Thin elderly male in NAD. VS per triage. HEENT: NC/AT. Normal facial exam. Neck: Supple. Trachea midline. Lungs: Normal respiratory effort. Lungs are clear. Cor: RRR without murmur. Good radial pulses. GI: Soft/ND/NT. Neuro: A+O x 3. Normal speech, mentation, gait. Cranial nerves II - XII grossly intact. No gross motor or sensory deficit. Ext: No C/C/E. Medical Decision Making Patient presenting to ED with shortness of breath, weakness and dizziness since this morning. EMS reports saturations in the high 70s/low 80s on NC and placed him on simple face mask. He also had SBP in the upper 80s/low 90s for them. Here he is comfortable with sats between 88 - 92%, no increased work of breathing and normal blood pressure. His EKG shows sinus with PVC, right axis, prolong QTc and some T wave abnormalities in V2 - V6 that were not present in January but were in October of last year. He did have a MIBI at that time with normal perfusion on imaging. He does have a new cough but no other complaints. Will proceed with work up including labs and CXR to evaluate for increase oxygen requirement and weakness/dizziness. Patient's VBG is baseline with normal pH and a pCO2 in the 50 which is similar to last month. His WBC is normal. Hgb elevated but baseline. Chemistries and kidney function is normal. Liver function is normal. [place] [address] [place] [address] in January. Initial troponin is 431 previous in January was 347, 343 and 369 presumed related to demand. His CXR tonight is suggestive of increased markings in the LLL compared to prior per my read. Prelim radiology read concurs. Will start antibiotics for presumed pneumonia. Repeat troponin is now 591. Patient unchanged clinically and vitals are stable. Have sent EKGs from October 2023, last month and tonight to [facility] and requested a cardiology consult. 01:15 - Spoke with cardiology at [facility], Dr. Hale. He does not think this is related to ACS and is still likely demand and related to some pulmonary process. Does recommend trending of toponins until peak. Will get CTA of chest just to be sure no PE despite negative d-dimer and medication compliance. This will also help with delineating significance of his pneumonia. 03:20 - Patient's CTA is negative for PE and there is no pneumonia. He has extensive COPD changes and he has reflux of contrast into the IVC and hepatic veins. His three hour troponin came back at 947. I reached back out to cardiology, Dr. Hale to discuss the rise in troponin. [place] that at this point should treat as ACS/NSTEMI despite lack of pain. As such patient was started on a heparin drip without a bolus. He received loading doses of aspirin and clopidogrel. [facility] currently at capacity and not able to take until Tuesday or Tuesday. Dr. Hale felt that this was probably a little too long of a wait given the troponin rise. Case therefore discussed with transfer at [facility] and [facility]. [facility] is also unable to take until Tuesday or Tuesday. [facility] does have capacity. I spoke to cardiology, Dr. Myers and to hospitalist, Dr. Mitchell. Patient accepted to hospitalist service, telemetry bed. Patient updated on findings and need for transfer which he consents to. Will plan urgent transfer at wireless telegrapher level once a bed has been confirmed by [facility]. Medical Records Medical records reviewed: Yes I reviewed the patient's medical records. Medical records narrative: outpatient notes, test as well as last admission Imaging Data Radiologic Study: Attestation: I personally reviewed and interpreted this imaging study as follows: Imaging: X-Ray My impression: see [facility] Radiologic Study #2: Imaging: CT Scan Radiologist's impression: IMPRESSION: 1. No pulmonary embolus. 2. Refluxing contrast into the IVC and hepatic veins suggest some degree of heart dysfunction/failure. Correlate clinically. 3. COPD without acute infiltrate. Thank you for allowing us to participate in the care of your patient. Dictated and Authenticated by: Jimmy Owens DO Lab Data Lab results reviewed: Yes I reviewed the patient's lab results. Lab results narrative: see [facility] ECG Data Attestation: I personally reviewed and interpreted this ECG (s) as follows: Prior ECG tracings: available for review Interpretation: see EKG/[facility] Critical Care Time Critical Care Time Critical Care Time: Yes Total Critical Care Time: 75 Attestation: Upon my evaluation, this patient had a high probability of imminent or life-threatening deterioration, which required my direct attention, intervention, and personal management. I have personally provided 75 minutes of critical care time exclusive of time spent on separately billable procedures. Time includes monitoring for potential decompensation, ordering of tests and medications, review of laboratory and radiology results, discussion with consultants and documentation . Interventions were performed as documented above in procedures. [facility] All Active Problems (Updated 03/11/25 @ 03:27 by Turner Chester MD) ACS (acute coronary syndrome) (Acute) Respiratory failure with hypoxia (Chronic) COPD (chronic obstructive pulmonary disease) (Chronic) Coronary artery disease (Chronic) Bullous emphysema (Chronic) Followed by pulmonary, O2 dependent Weight loss, unintentional (Acute) Secondary erythrocytosis (Acute) History of pulmonary embolism (Chronic ~2020) Oxygen dependent (Chronic) Pulmonary hypertension (Chronic) Peripheral artery disease (Chronic) AAA (abdominal aortic aneurysm) (Chronic) Hypertension (Chronic) 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) CKD (chronic kidney disease) stage 3, GFR 30-59 ml/min (Acute) Chronic anticoagulation (Chronic) History of venous thromboembolism (Chronic) Left leg DVT, PE 2019 BPH w urinary obs/LUTS (Chronic) Hyperlipidemia (Chronic) GERD (gastroesophageal reflux disease) (Chronic) Recurrent ventral hernia (Chronic) Diverticulosis of colon (Chronic) Medical History Left leg DVT (2019) Former cigarette smoker Tubular adenoma of colon Non-sustained ventricular tachycardia Pulmonary embolism (2019) Jensen's esophagus Anxiety Surgical History Status post ORIF of fracture of ankle Right S/P colonoscopy H/O ventral hernia repair Hx of cataract surgery S/P right rotator cuff repair Status post Elida fundoplication Family History Mother Heart disease COPD (chronic obstructive pulmonary disease) Father Diabetes Metastatic primary lung cancer Sister Heart disease Sister Heart disease Brother Heart disease Diabetes Brother Heart disease Son Diabetes Hypertension Son No problems noted. Daughter Uterine cancer Maternal Grandfather No problems noted. Maternal Grandmother No problems noted. Paternal Grandfather No problems noted. Paternal Grandmother No problems noted. 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 Pets and animals: Yes Pets and animals: dog(s) Sexually active: Yes Do you think of yourself as: straight/heterosexual Current gender identity: male What is your relationship status?: How often do you talk on the phone with friends or family?: decline to answer How often do you get together with friends or relatives?: decline to answer How often do you attend anabaptism or pentecostalism services?: decline to answer Do you belong to any clubs or organized social groups?: yes Panel score (0-1 are the most socially isolated patients): 2 What type of physical activity do you participate in: walking Duration: > 90 minutes/day Frequency: daily Rosie/Scientologist: Shinto Special rosie needs: No Do you feel safe at home: Yes Do you feel safe in your relationship?: Yes Additional Social history: Previously enjoyed bicycling.
[2025-03-10 22:20] LABS: BE (Venous) 11 mmol/L (-2-3); HCO3 (Venous) 36 mmol/L (23-28); O2 Sat (Venous) 32 %; TCO2 (Venous) 31 mmol/L (24-29); pCO2 (Venous) 59 mmHg (41-51); pO2 (Venous) 21 mmHg
[2025-03-10 22:23] LABS: Abs Immature Grans 0.06 10^3/uL (0.0-0.06); HCT 54.4 % (40.0-50.0); HGB 18.1 g/dL (13.5-17.5); Immature Grans % 0.7 %; MCH 32.6 pg (27.0-33.0); MCHC 33.3 % (32.0-36.0); MCV 98 fL (80-95); MPV 10.0 fL (8.0-11.0); Platelet Count 190 10^3/uL (130-400); RBC 5.56 10^6/uL (4.36-5.78); RDW 13.4 % (11.8-14.1); RDW-SD 49.1 fL; WBC 8.75 10^3/uL (4.4-10.8)
[2025-03-10 22:40] LABS: Magnesium 1.7 mg/dL (1.6-2.6)
[2025-03-10 22:41] LABS: ALT 25 U/L (10-49); AST 32 U/L (<34); Albumin 3.6 g/dL (3.2-5.0); Alkaline Phosphatase 101 U/L (46-116); Anion Gap 6.4 mmol/L (3-11); BUN 23 mg/dL (9-23); Bilirubin, Total 0.9 mg/dL (0.2-1.2); CO2 34.5 mmol/L (20.0-31.0); Calcium 8.6 mg/dL (8.3-10.6); Chloride 99 mmol/L (98-107); Glucose 122 mg/dL (74-106); Potassium 4.0 mmol/L (3.5-5.1); Sodium 140 mmol/L (136-145); Total Protein 6.8 g/dL (5.7-8.2)
[2025-03-10 22:49] LABS: D-Dimer 475 ng/mlFEU (<500)
[2025-03-10 22:58] LABS: Troponin I 431 ng/L (<54)
[2025-03-10 23:06] LABS: COVID-19 PCR Negative (Negative); RSV PCR Negative (Negative)
--- NOTE | 2025-03-10 23:20 | DI.VRAD_ITS ---
PROCEDURE INFORMATION: Exam: XR Chest Exam date and time: 03/10/2025 11:00 PM Age: 74 years old Clinical indication: Shortness of breath; SOB TECHNIQUE: Imaging protocol: Radiologic exam of the chest. Views: 2 views. COMPARISON: CR XR PORTABLE CHEST AP 02/18/2025 11:08 AM FINDINGS: Lungs: COPD. Questionable basilar infiltrates which appear increased from prior comparison. Pleural spaces: Unremarkable. No pleural effusion. No pneumothorax. Heart/Mediastinum: Unremarkable. No cardiomegaly. Vasculature: Atherosclerotic disease of the aortic arch. Bones/joints: Unremarkable. IMPRESSION: 1. Question of pneumonia particularly of the left lung base/retrocardiac region. 2. Superimposed COPD. Dictated and Authenticated by: Jimmy Owens MD. Orderin Henrik Tompkins MD
[2025-03-10 23:56] LABS: Troponin I 591 ng/L (<54)
[2025-03-11] VITALS (107 sets, daily range): BP systolic 113–161; BP diastolic 59–109; PULSE 64–108; RESP 13–25; TEMP 36.6; O2SAT 92–100
[2025-03-11] MEDS: cefTRIAXone 1 GM/50 ML BAG IVPB
[2025-03-11] MEDS: Azithromycin 250 MG TAB 500 MG PO
[2025-03-11 00:23] LABS: Glucose Negative (Negative)
--- NOTE | 2025-03-11 01:15 | DI.CT_ITS ---
Exam(s) CT CHEST PE CTA EXAM: CT CHEST PE CTA CLINICAL HISTORY: history of PE; increased oxygen requirement. TECHNIQUE: Imaging Protocol: Axial CT angiography was performed with multi- slice acquisition and multi-planar reconstructions as well as axial, coronal and sagittal MIP reconstructions. Computer aided detection (CAD) was utilized. CONTRAST MATERIAL: Intravenous: Omnipaque 350 Contrast volume:65 ml COMPARISON: CT CT CHEST/ABD/PEL W from 03/31/[address] CHEST PE CTA from 10/17/2023 CR,XR XR CHEST 2V PA LATERAL from 03/10/2025 FINDINGS: Pulmonary Arteries: Well opacified with IV contrast. No evidence of filling defect to suggest pulmonary emboli. Mediastinum and Rocio: No dominant adenopathy or fluid collection. Pulmonary parenchyma: Severe emphysematous changes, greater in the upper lobes. No consolidation or dominant measurable mass. Pleura: No effusion or pneumothorax. Heart: Right atrial enlargement. Severe coronary artery calcifications are seen. Aorta: Thoracic aorta non-dilated. No dissection. Calcification at arch. Upper abdomen: No acute findings. Bones: Old left 11th rib fracture. Tubes, Catheters, and Lines: None Soft tissues: Cachexia peer IMPRESSION: No evidence of pulmonary embolism. Severe emphysematous changes. No superimposed pneumonia. The preliminary [facility] report was reviewed. RADIATION DOSE DELIVERED: Total DLP DATA REPOSITORY: All CT scans at this facility are submitted to the National Radiology Data Registry (NRDR) Dose Index Registry (DIR) with the [employer] (ACR). RADIATION OPTIMIZATION: All CT scans at this facility use at least one of these dose optimization techniques: automated exposure control; mA and/or kV adjustment per patient size (includes targeted exams where dose is matched to clinical indication); or iterative reconstruction.
[2025-03-11] MEDS: Normal Saline Flush 10 ML SYR IVP (01:32)
[2025-03-11] MEDS: Omnipaque 350 MG/ML 100 ML BTL IJ (01:32)
[2025-03-11] MEDS: Normal Saline - Diluent 50 ML VIAL IJ (01:32)
[2025-03-11 01:57] LABS: Troponin I 947 ng/L (<54)
--- NOTE | 2025-03-11 02:00 | RT.EKG_ITS ---
APPROVED REPORT Exam: Resting ECG Reason for Exam: rising troponin Patient Location: E HR:88 bpm ECG Measurements Heart Rate 88 AXIS NV 161 P 59 QRSd 106 QRS 138 QT 387 T -79 QTc 469 Conclusion Sinus rhythm...normal P axis, V-rate 60- 99 Probable left atrial enlargement...P >50mS, <-0.10mV V1 Abnrm T, consider ischemia, anterolateral lds...T <-0.20mV, I aVL V2-V6 There are no significant changes except for normal QTc now compared to prior EKG performed on 03/10/2025 at 22:12.
--- NOTE | 2025-03-11 02:01 | DI.VRAD_ITS ---
PROCEDURE INFORMATION: Exam: CTA Chest With Contrast Exam date and time: 03/11/2025 1:43 AM Age: 74 years old Clinical indication: Shortness of breath; History of pe; Increased oxygen requirement TECHNIQUE: Imaging protocol: Computed tomographic angiography of the chest with contrast. Exam focused on the arteries. 3D rendering (Not supervised by radiologist): MIP and/or 3D reconstructed images were created by the technologist. Radiation optimization: All CT scans at this facility use at least one of these dose optimization techniques: automated exposure control; mA and/or kV adjustment per patient size (includes targeted exams where dose is matched to clinical indication); or iterative reconstruction. Contrast material: OMNIPAQUE 350; Contrast volume: 65 ml; Contrast route: INTRAVENOUS (IV); COMPARISON: CT CHEST PE CTA 10/17/2023 9:15 PM FINDINGS: Pulmonary arteries: Normal. No pulmonary emboli. Aorta: Advanced atherosclerotic disease of the aorta. Veins: Contrast is seen refluxing into the IVC and hepatic veins. Lungs: COPD. Pleural spaces: Unremarkable. No pneumothorax. No pleural effusion. Heart: Unremarkable. No cardiomegaly. No pericardial effusion. Coronary arteries: Advanced atherosclerotic disease of the coronary arteries. Lymph nodes: Unremarkable. No enlarged lymph nodes. Bones/joints: Old posterior left 11th rib fracture deformity. Soft tissues: Cachexia. IMPRESSION: 1. No pulmonary embolus. 2. Refluxing contrast into the IVC and hepatic veins suggest some degree of heart dysfunction/failure. Correlate clinically. 3. COPD without acute infiltrate. Dictated and Authenticated by: Jimmy Owens MD. Orderin Henrik Tompkins MD
[2025-03-11] MEDS: Aspirin 81 MG CHEW 324 MG CH (02:32)
[2025-03-11] MEDS: Clopidogrel 300 MG TAB PO (02:32)
[2025-03-11] MEDS: Heparin in 0.45% NaCl 25,000 UNIT/250 ML BAG 7.5 UNIT IVINF (02:43)
[2025-03-11 02:56] LABS: INR 1.2 (0.9-1.1); PTT Activated 28.3 sec (20.6-30.2); Prothrombin Time 11.6 sec (9.1-11.1)
[2025-03-11 07:21] LABS: Troponin I 1284 ng/L (<54)
--- NOTE | 2025-03-11 07:47 | W.EDPROG ---
Date of service: 03/11/25 Time of Service: 07:47 Medical Decision Making This patient was in the department on arrival. He is pending transfer to [facility] in setting of ACS. His troponins were climbing. He had no chest pain. I will place him n.p.o. order. 12:30 PM I will try to transfer center from [facility]. They gave me the name of Dr. Pappas as the accepting physician to the ED. 3 PM Patient was transferred via [place]. Quality:SDOH Health Related Social Needs: Health related social needs details none Discharge Plan Disposition Patient Disposition: Transfer-Acute Inpatient Care Specific Acute Inpt Facility: Other Condition: Stable Discharge Details Clinical Impression: ACS (acute coronary syndrome) Primary Care Provider: Yesenia Willson ED Provider: Augustine Jimenes Girard Meds and New Rx's Prescriptions: No Action rosuvastatin 10 mg tablet 10 mg PO DAILY Qty: 90 3RF Eliquis 2.5 mg tablet 2.5 mg PO BID Qty: 180 3RF tamsulosin 0.4 mg capsule 0.4 mg PO DAILY Qty: 90 3RF omeprazole 20 mg capsule,delayed release(DR/EC) 20 mg PO BID PRN albuterol sulfate 90 mcg/actuation HFA aerosol inhaler 2 puff inhalation Q4H PRN (Reason: shortness of breath or wheezing) Qty: 8.5 12RF Stiolto Respimat 2.5-2.5 mcg/actuation mist 2 puff inhalation DAILY Qty: 4 12RF furosemide [Lasix] 20 mg tablet 20 mg PO DAILY Qty: 30 3RF
--- NOTE | 2025-03-11 10:19 | W.PCEDHO ---
Registration Status: REG ER Primary Language: Preferred Language: Ukrainian ED Information & Data Chief Complaint SOB 03/10/25 22:11 Chief Complaint SOB 03/10/25 21:57 Triage Note BIBA from home, c/o SOB. 03/10/25 21:57 normally on 6L at home. arrives on 10L NRB. Recent hospitalization here for same. CHF, Medical / Surgical History (Last Reviewed 05/02/24 @ 11:59 by JEANNIE Walters) Anxiety Jensen's esophagus Former cigarette smoker Left leg DVT (2019) Non-sustained ventricular tachycardia Pulmonary embolism (2019) Tubular adenoma of colon (Last Reviewed 05/02/24 @ 11:59 by JEANNIE Walters) H/O ventral hernia repair Hx of cataract surgery S/P colonoscopy S/P right rotator cuff repair Status post Elida fundoplication Status post ORIF of fracture of ankle Most Recent Vital Signs Temperature 36.1 C L 03/10/25 21:57 Pulse 72 03/11/25 08:31 Pulse 70 03/11/25 08:31 Respiratory Rate 17 03/11/25 08:31 Respiratory Effort Normal, Short of Breath 03/10/25 22:15 Respiratory Depth Normal 03/10/25 22:15 Respiratory Pattern Normal 03/10/25 22:15 Blood Pressure 154/97 H 03/11/25 08:31 Blood Pressure Mean 117 03/11/25 08:31 Blood Pressure Position Supine 03/10/25 21:57 Pulse Oximetry 98 03/11/25 08:31 Oxygen Delivery Method Non-Rebreather 03/11/25 07:56 Oxygen Flow Rate 15 03/11/25 07:56 Pain Level 0 03/10/25 21:57 Allergies Penicillins Allergy (Unknown, Verified 03/11/25 07:21) unknown amlodipine Adverse Reaction (Verified 03/11/25 07:21) peripheral edema Precautions Isolation Standard precaution 03/10/25 22:11 Active Medications Generic Name Dose Route Start Last Admin Trade Name Freq PRN Reason Stop Dose Admin Heparin Sodium/Sodium Chloride 25,000 unit in 250 mls @ 7.5 mls/hr 03/11/25 02:30 03/11/25 10:15 IVINF 0 units/hr INFUSION LIMA 0 mls/hr Protocol Titration 750 UNITS/HR Iohexol 100 ml 03/11/25 01:45 03/11/25 01:32 Omnipaque 350 Mg/Ml 100 Ml Btl IJ 04/10/25 23:59 65 ml DIRECTED LIMA Administration Sodium Chloride 0 ml 03/11/25 08:30 03/11/25 08:50 Normal Saline Flush 10 Ml Syr IVP Not Given BID LIMA Sodium Chloride 50 ml 03/11/25 01:45 03/11/25 01:32 Normal Saline - Diluent 50 Ml Vial IJ 50 ml DIRECTED LIMA Administration Sodium Chloride 0 ml 03/11/25 01:31 03/11/25 01:32 Normal Saline Flush 10 Ml Syr IVP 10 ml PRN PRN Administration IV IV Catheter Type [Left Forearm Saline Lock ] IV Catheter Type [Right Saline Lock Antecubital] IV Catheter Gauge [Left 20 Forearm] IV Catheter Gauge [Right 20 Antecubital] Diet Orders Category Date Time Status npo [Nothing Per Oral] [DIET] Nutrition 03/11/25 07:47 Active Diagnostics 03/11/25 03/11/25 03/11/25 Range/Units 09:15 08:48 05:55 WBC (4.4-10.8) 10^3/uL RBC (4.36-5.78) 10^6/uL Hgb (13.5-17.5) g/dL Hct (40.0-50.0) % MCV (80-95) fL MCH (27.0-33.0) pg MCHC (32.0-36.0) % RDW (11.8-14.1) % Plt Count (130-400) 10^3/uL MPV (8.0-11.0) fL Immature Gran % % Neutrophils % % Lymphocytes % % Monocytes % % Eosinophils % % Basophils % % Nucleated RBC % (0.0-0.3) % Absolute Neutrophils (1.2-6.7) 10^3/uL Absolute Lymphocytes (1.2-3.4) 10^3/uL Absolute Monocytes (0.1-0.8) 10^3/uL Absolute Eosinophils (0.0-0.7) 10^3/uL Absolute Basophils (0.0-0.2) 10^3/uL PT (9.1-11.1) sec INR (0.9-1.1) APTT > 155.0 H* Cancelled (20.6-30.2) sec D-Dimer (<500) ng/mlFEU VBG pH (7.31-7.41) VBG pCO2 (41-51) mmHg VBG pO2 mmHg VBG HCO3 (23-28) mmol/L VBG Total CO2 (24-29) mmol/L VBG O2 Saturation % VBG Base Excess (-2-3) mmol/L Sodium (136-145) mmol/L Potassium (3.5-5.1) mmol/L Chloride (98-107) mmol/L Carbon Dioxide (20.0-31.0) mmol/L Anion Gap (3-11) mmol/L BUN (9-23) mg/dL Creatinine (0.73-1.18) mg/dL Est GFR (CKD-EPI 2020) (mL/min/1.73m2) Glucose (74-106) mg/dL Calcium (8.3-10.6) mg/dL Magnesium (1.6-2.6) mg/dL Total Bilirubin (0.2-1.2) mg/dL AST (<34) U/L ALT (10-49) U/L Alkaline Phosphatase (46-116) U/L Troponin I 1284 H* (<54) ng/L NT-Pro-B Natriuret Pep (<300) pg/mL Total Protein (5.7-8.2) g/dL Albumin (3.2-5.0) g/dL Urine Color (Yellow) Urine Clarity (Clear) Urine pH (5-8) Ur Specific [place] (1.005-1.025) Urine Protein (Neg-Trace) mg/dL Urine Ketones (Negative) mg/dL Urine Blood (Negative) Urine Nitrite (Negative) Urine Bilirubin (Negative) Urine Urobilinogen (Up to 0.2) mg/dL Ur Leukocyte Esterase (Negative) Urine Glucose (Negative) mg/dL COVID-19 Source SARS-CoV-2 (PCR) (Negative) Influenza Type A (PCR) (Negative) Influenza Type B (PCR) (Negative) RSV (PCR) (Negative) 03/11/25 03/11/25 03/11/25 Range/Units 02:38 01:20 00:05 WBC (4.4-10.8) 10^3/uL RBC (4.36-5.78) 10^6/uL Hgb (13.5-17.5) g/dL Hct (40.0-50.0) % MCV (80-95) fL MCH (27.0-33.0) pg MCHC (32.0-36.0) % RDW (11.8-14.1) % Plt Count (130-400) 10^3/uL MPV (8.0-11.0) fL Immature Gran % % Neutrophils % % Lymphocytes % % Monocytes % % Eosinophils % % Basophils % % Nucleated RBC % (0.0-0.3) % Absolute Neutrophils (1.2-6.7) 10^3/uL Absolute Lymphocytes (1.2-3.4) 10^3/uL Absolute Monocytes (0.1-0.8) 10^3/uL Absolute Eosinophils (0.0-0.7) 10^3/uL Absolute Basophils (0.0-0.2) 10^3/uL PT 11.6 H (9.1-11.1) sec INR 1.2 H (0.9-1.1) APTT 28.3 (20.6-30.2) sec D-Dimer (<500) ng/mlFEU VBG pH (7.31-7.41) VBG pCO2 (41-51) mmHg VBG pO2 mmHg VBG HCO3 (23-28) mmol/L VBG Total CO2 (24-29) mmol/L VBG O2 Saturation % VBG Base Excess (-2-3) mmol/L Sodium (136-145) mmol/L Potassium (3.5-5.1) mmol/L Chloride (98-107) mmol/L Carbon Dioxide (20.0-31.0) mmol/L Anion Gap (3-11) mmol/L BUN (9-23) mg/dL Creatinine (0.73-1.18) mg/dL Est GFR (CKD-EPI 2020) (mL/min/1.73m2) Glucose (74-106) mg/dL Calcium (8.3-10.6) mg/dL Magnesium (1.6-2.6) mg/dL Total Bilirubin (0.2-1.2) mg/dL AST (<34) U/L ALT (10-49) U/L Alkaline Phosphatase (46-116) U/L Troponin I 947 H* (<54) ng/L NT-Pro-B Natriuret Pep (<300) pg/mL Total Protein (5.7-8.2) g/dL Albumin (3.2-5.0) g/dL Urine Color Yellow (Yellow) Urine Clarity Clear (Clear) Urine pH 6.0 (5-8) Ur Specific [place] 1.010 (1.005-1.025) Urine Protein Negative (Neg-Trace) mg/dL Urine Ketones Negative (Negative) mg/dL Urine Blood Negative (Negative) Urine Nitrite Negative (Negative) Urine Bilirubin Negative (Negative) Urine Urobilinogen 0.2 (Up to 0.2) mg/dL Ur Leukocyte Esterase Negative (Negative) Urine Glucose Negative (Negative) mg/dL COVID-19 Source SARS-CoV-2 (PCR) (Negative) Influenza Type A (PCR) (Negative) Influenza Type B (PCR) (Negative) RSV (PCR) (Negative) 03/10/25 03/10/25 03/10/25 Range/Units 23:16 22:22 22:09 WBC 8.75 (4.4-10.8) 10^3/uL RBC 5.56 (4.36-5.78) 10^6/uL Hgb 18.1 H (13.5-17.5) g/dL Hct 54.4 H (40.0-50.0) % MCV 98 H (80-95) fL MCH 32.6 (27.0-33.0) pg MCHC 33.3 (32.0-36.0) % RDW 13.4 (11.8-14.1) % Plt Count 190 (130-400) 10^3/uL MPV 10.0 (8.0-11.0) fL Immature Gran % 0.7 % Neutrophils % 84.8 % Lymphocytes % 7.1 % Monocytes % 6.4 % Eosinophils % 0.7 % Basophils % 0.3 % Nucleated RBC % 0.0 (0.0-0.3) % Absolute Neutrophils 7.42 H (1.2-6.7) 10^3/uL Absolute Lymphocytes 0.62 L (1.2-3.4) 10^3/uL Absolute Monocytes 0.56 (0.1-0.8) 10^3/uL Absolute Eosinophils 0.06 (0.0-0.7) 10^3/uL Absolute Basophils 0.03 (0.0-0.2) 10^3/uL PT (9.1-11.1) sec INR (0.9-1.1) APTT (20.6-30.2) sec D-Dimer 475 (<500) ng/mlFEU VBG pH 7.39 (7.31-7.41) VBG pCO2 59 H (41-51) mmHg VBG pO2 21 mmHg VBG HCO3 36 H (23-28) mmol/L VBG Total CO2 31 H (24-29) mmol/L VBG O2 Saturation 32 % VBG Base Excess 11 H (-2-3) mmol/L Sodium 140 (136-145) mmol/L Potassium 4.0 (3.5-5.1) mmol/L Chloride 99 (98-107) mmol/L Carbon Dioxide 34.5 H (20.0-31.0) mmol/L Anion Gap 6.4 (3-11) mmol/L BUN 23 (9-23) mg/dL Creatinine 1.18 (0.73-1.18) mg/dL Est GFR (CKD-EPI 2020) 60.19 (mL/min/1.73m2) Glucose 122 H (74-106) mg/dL Calcium 8.6 (8.3-10.6) mg/dL Magnesium 1.7 (1.6-2.6) mg/dL Total Bilirubin 0.9 (0.2-1.2) mg/dL AST 32 (<34) U/L ALT 25 (10-49) U/L Alkaline Phosphatase 101 (46-116) U/L Troponin I 591 H* 431 H* (<54) ng/L NT-Pro-B Natriuret Pep 63414 H (<300) pg/mL Total Protein 6.8 (5.7-8.2) g/dL Albumin 3.6 (3.2-5.0) g/dL Urine Color (Yellow) Urine Clarity (Clear) Urine pH (5-8) Ur Specific [place] (1.005-1.025) Urine Protein (Neg-Trace) mg/dL Urine Ketones (Negative) mg/dL Urine Blood (Negative) Urine Nitrite (Negative) Urine Bilirubin (Negative) Urine Urobilinogen (Up to 0.2) mg/dL Ur Leukocyte Esterase (Negative) Urine Glucose (Negative) mg/dL COVID-19 Source Nasopharynx SARS-CoV-2 (PCR) Negative (Negative) Influenza Type A (PCR) Negative (Negative) Influenza Type B (PCR) Negative (Negative) RSV (PCR) Negative (Negative) Intake and Output - 24 Hour Total 03/10/25 21:41 thru 03/11/25 10:15 Intake Total 116.5 Output Total 775 Balance -658.5 Weight 61 kg Intake: IV 116.5 Output: Urine 775 Falls Risk Assessment History of Falls No History 03/10/25 22:14 Contributing Factors No Factors 03/10/25 22:14 Ambulatory Aids Independent 03/10/25 22:14 Tubes/Lines None 03/10/25 22:14 Gait Evaluation No gait disturbance 03/10/25 22:14 Cognition No cognitive impairment 03/10/25 22:14 Fall Total Score 0 03/10/25 22:14 Level of Risk Standard/Low Risk 03/10/25 22:14 Attestation Statement: By documenting the first initial, last name, and credentials of the reporting nurse below, both parties acknowledge that all relevant information regarding the patient handoff has been communicated, and that all questions have been addressed to ensure continuity and safety of care. Additional Patient Information/Comments: Report Given To: MASSIEL Negrete RN @ [id number] hrs
== END 2025-03-11 15:37 | disposition short-term general hospital (02) ==
PROVIDERS: Emergency Medicine; Emergency Provider Emergency Medicine; PCP Occupational Therapist
DX: I24.9 Acute ischemic heart disease, unspecified (principal); R06.02 Shortness of breath; R42 Dizziness and giddiness; R53.1 Weakness
CPT/HCPCS: 00123; 36415; 71275; 80053; 82805; 87637; 93005; 96365; 96366; 96367; 99291; 71046; 81003; 83735; 83880; 84484; 85025; 85379; 85610; 85730; 93010; J0696; J1644; J3490